=== PATIENT | female | born 1950 | race Caucasian/White ===

== ENCOUNTER 2017-04-17 21:15 | Emergency (ER) | payer MEDICARE ==
[~2017-04-17 21:15] MED LIST: ARNIGEL; ASPI325T PO; CORE3.12 PO; CRAN400C PO; CURCPOW XX; ENAL5 PO; FA-8800C2 PO; NITR.4 SL; PROT40TA PO; TRAM50TA PO; TYLE500T; VITA100017 PO; VITA100020 IM; WELL150T PO
[2017-04-17 21:17] VITALS: BP 181/107; PULSE 130; RESP 16; TEMP 99.2; O2SAT 97
--- NOTE | 2017-04-17 22:17 | RADRPT ---
EXAM DATE/TIME: 04/17/2017 21:47 [place] COMPARISON: No previous studies available for comparison. INDICATIONS : Foreign body. Patient states sewing needle on medial side of left thigh. MEDICAL HISTORY : None. SURGICAL HISTORY : None. ENCOUNTER: Initial ACUITY: 1 day PAIN SCORE: 3/10 LOCATION: Left femur. FINDINGS: Two view examination of the left femur demonstrates a sewing needle in the soft tissues of the medial left thigh. No bony abnormality. Osteoarthritis at the left knee joint with moderate size joint effu liang and probable loose bodies. CONCLUSION: 1. Sewing needle in the soft tissues of the medial left thigh. Britton Georges MD on April 17, 2017 at 22:14 Board Certified Radiologist. This report was verified electronically.
--- NOTE | 2017-04-17 23:27 | PD ---
HPI Chief Complaint: Skin Problem Time Seen by Provider: 23:15 Travel History International Travel<30 days: No Contact w/Intl Traveler<30days: No Traveled to known affect area: No History of Present Illness HPI 66-year-old white female presents to emergency department with complaints of a needle foreign body in her left thigh. She states that she had dropped sewing needles on her lap earlier today. She noticed an area of tenderness to the medial left thigh. She presents for evaluation. She denies any numbness or tingling. PFSH Past Medical History Arthritis: Yes (feet, knees, back ) Blood Disorders: No Depression: Yes Cancer: No Cardiovascular Problems: Yes Chest Pain: Yes Diabetes: No Diminished Hearing: No Endocrine: No Gastrointestinal Disorders: Yes GERD: Yes Genitourinary: Yes Hepatitis: No Hiatal Hernia: No Hypertension: Yes Immune Disorder: No Implanted Vascular Access Dvce: Yes Musculoskeletal: Yes (cervical fusion c2-c3, spinal stenosis) Neurologic: Yes (erbs palsy right arm) Psychiatric: Yes (anxiety) Reproductive: No Respiratory: Yes (asthma) Immunizations Current: No Renal Failure: Yes (chronic renal failure/atrophy of kidney since ) Thyroid Disease: No Menopausal: Yes : 2 Para: 2 Tubal Ligation: Yes Past Surgical History Abdominal Surgery: No AICD: No Appendectomy: Yes Cardiac Surgery: No Endocrine Surgery: No Eye Surgery: No Genitourinary Surgery: No Gynecologic Surgery: No Joint Replacement: No Pacemaker: No Thoracic Surgery: No Tonsillectomy: Yes Other Surgery: Yes (cervical spin, c section x2 appy at age 7) Social History Alcohol Use: No Tobacco Use: No Substance Use: No Allergies-Medications (Allergen,Severity, Reaction): Coded Allergies: diatrizoate meglumine (Unverified Allergy, Severe, SHOCK, 12/20/16) gadobenic acid (Unverified Allergy, Severe, SHOCK, 12/20/16) gadodiamide (Unverified Allergy, Severe, SHOCK, 12/20/16) gadoteridol (Unverified Allergy, Severe, SHOCK, 12/20/16) iodine (Unverified Allergy, Severe, ANAPHLATIC SHOCK, 12/20/16) iodixanol (Unverified Allergy, Severe, SHOCK, 12/20/16) iohexol (Unverified Allergy, Severe, SHOCK, 12/20/16) potassium iodide (Unverified Allergy, Severe, ANAPHLATIC SHOCK, 12/20/16) povidone-iodine (Unverified Allergy, Severe, ANAPHLATIC SHOCK, 12/20/16) sodium iodide (Unverified Allergy, Severe, ANAPHLATIC SHOCK, 12/20/16) sodium iodide (Unverified Allergy, Severe, ANAPHLATIC SHOCK, 12/20/16) Uncoded Allergies: Dairy (Adverse Reaction, Intermediate, Constipation, 11/12/11) Reported Meds & Prescriptions Reported Meds & Active Scripts Active Reported Aspirin 325 mg (Aspirin) 325 Mg Tab 325 Mg PO ONCE PRN Arnica Gel (Homeopathic Products) Gel Curcumin (Turmeric (Curcuma Longa) (Bulk) Pow 1 XX Fa-8 (Folic Acid) 800 Mcg Cap 800 Mcg PO DAILY Cranberry (Cranberry (Vaccinium Macrocarp) 400 Mg Cap 400 Mg PO Acetaminophen Extra Stren (Acetaminophen) 500 Mg Tab Vitamin B-12 (Cyanocobalamin) 1,000 Mcg Inj 1,000 Mcg IM Q30D Protonix (Pantoprazole Sodium) 40 Mg Tabdr 40 Mg PO DAILY Nitroglycerin 0.4 Mg Subl 0.4 Mg SL DIRECTED Wellbutrin Sr (Bupropion HCl) 150 Mg Tab 150 Mg PO DAILY Vitamin C (Ascorbic Acid) 1,000 Mg Tab 1,000 Mg PO DAILY Vasotec 5 Mg Tab (Enalapril Maleate) 5 Mg Tab 5 Mg PO BID Coreg (Carvedilol) 3.125 Mg Tab 3.125 Mg PO BID hold for systolic BP below 120 Tramadol Hcl (Tramadol HCl) 50 Mg Tab 50 Mg PO TIDPRN Review of Systems General / Constitutional: No: Fever Eyes: No: Visual changes HENT: No: Headaches Cardiovascular: No: Chest Pain or Discomfort Respiratory: No: Shortness of Breath Gastrointestinal: No: Abdominal Pain Genitourinary: No: Dysuria Musculoskeletal: No: Pain Skin: No Rash Neurologic: No: Weakness Psychiatric: No: Depression Endocrine: No: Polydipsia Hematologic/Lymphatic: No: Easy Bruising Physical Exam Narrative GENERAL: This is a well-nourished, well-developed patient, in no apparent distress. SKIN: No rashes, ecchymoses or lesions. Warm and dry. Patient has a foreign body on the left inner aspect of the thigh. This is at the level the skin HEAD: Atraumatic. Normocephalic. EYES: PERRL, EOMI, no discharge or injection. No scleral icterus. EARS: Clear NOSE: Nasal turbinates appear normal. THROAT: Mucosa pink and moist. Airway patent. NECK: Trachea midline. supple, moves head freely. LUNGS: Clear to auscultation. CV: Regular in rhythm. ABDOMEN: Soft nontender. EXT: No clubbing cyanosis or edema. Data Data Last Documented VS Vital Signs Date Time Temp Pulse Resp B/P (MAP) Pulse Ox O2 Delivery O2 Flow Rate FiO2 04/17/17 21:17 99.2 130 16 181/107 (131) 97 Room Air Orders Orders Femur (Ap & Lat/2vws) (04/17/17 ) Ed Discharge Order (04/17/17 23:23) MDM Medical Decision Making Medical Screen Exam Complete: Yes Emergency Medical Condition: Yes Medical Record Reviewed: Yes Interpretation(s) Last 24 hours Impressions Femur X-Ray 04/17/17 0000 Signed Impressions: Service Date/Time: Monday, April 17, 2017 21:47 - CONCLUSION: 1. Sewing needle in the soft tissues of the medial left thigh. Britton Georges MD Differential Diagnosis MDM: High Differential diagnoses: Fracture, sprain, strain, dislocation, contusion, neurovascular injury, foreign body Narrative Course Patient has a needle foreign body in her left thigh. This is been removed. The needle is intact. Procedures Procedure Narrative Needle for moderate removal left thigh: The skin is prepped with ChloraPrep. One percent lidocaine with epinephrine is used to anesthetize the skin. An 11 blade scalpel is used to make a small arlen in the skin and the foreign body ( needle) is removed in its entirety. No complications. Dressing applied Diagnosis Primary Impression: left thigh needle foreign body removed Patient Instructions: General Instructions Additional Instructions: Rest. Daily wound care with soap, water, Neosporin. Return to the ER. Problems. Follow-up with your doctor as needed Med/Other Pt SpecificInfo: Wound Care Disposition: 01 DISCHARGE HOME Condition: Stable Britton Portillo Apr 17, 2017 23:27
== END 2017-04-18 | disposition home or self-care (01) ==
LOC: NEPD 21:15
DX: S71.142A Puncture wound with foreign body, left thigh, initial encounter (principal); W45.8XXA Other foreign body or object entering through skin, initial encounter
CPT/HCPCS: 10120; 73552

== ENCOUNTER 2017-11-23 03:06 | Inpatient (IN) ==
--- NOTE | 2017-11-23 04:38 | CT ---
EXAM DATE: 11/23/2017 4:26 AM EDT AGE/SEX: 67 years / Female INDICATIONS: Trauma; fall. CLINICAL DATA: This is the patient's initial encounter. Patient reports that signs and symptoms have been present for 1 day and indicates a pain score of 4/10. MEDICAL/SURGICAL HISTORY: None. None. RADIATION DOSE: 56.35 CTDI (mGy) COMPARISON: [facility] [place]RAIN [place]/O [place], 02/09/2011. . TECHNIQUE: CT of the head without contrast. Using automated exposure control and adjustment of the mA and/or kV according to patient size, radiation dose was kept as low as reasonably achievable to ob tain optimal diagnostic quality images. DICOM format image data is available electronically for revi ew and comparison. FINDINGS: Cerebrum: There is a focal area of low attenuation in the right frontal white matter measuring about 11 mm in diameter likely a remote infarct. No mass or shift. No hydrocephalus. Posterior Fossa: The cerebellum and brainstem are intact. The 4th ventricle is midline. The cerebe llopontine angle is unremarkable. Extracranial: The visualized portion of the orbits is intact. Skull: The calvaria is intact. No evidence of skull fracture. CONCLUSION: 1. No acute findings. 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 Electronically signed by: Britton Georges MD 11/23/2017 4:37 AM EDT
[2017-11-23 04:49] LABS: Baso % (Auto) 0.2 % (0.0-2.0); Eos % (Auto) 0.3 % (0.0-4.0); Hematocrit 36.6 % (35.0-46.0); Hemoglobin 12.2 gm/dL (11.6-15.3); Lymph % (Auto) 11.8 % (9.0-44.0); Mean Corpuscular HGB Conc 33.4 % (32.0-36.0); Mean Corpuscular Hemoglobin 30.4 pg (27.0-34.0); Mean Corpuscular Volume 91.1 fL (80.0-100.0); Mean Platelet Volume 8.4 fL (7.0-11.0); Mono # (Auto) 0.9 th/mm3 (0.0-0.9); Mono % (Auto) 9.7 % (0.0-8.0); Neut # (Auto) 6.9 th/mm3 (1.8-7.7); Platelet Count 224 th/mm3 (150-450); Red Blood Count 4.02 mil/mm3 (4.00-5.30); Red Cell Distribution Width 15.5 % (11.6-17.2); White Blood Count 8.8 th/mm3 (4.0-11.0)
[2017-11-23 05:11] LABS: Alanine Aminotransferase 25 U/L (10-53); Albumin 3.2 g/dL (3.4-5.0); Alkaline Phosphatase 87 U/L (45-117); Anion Gap 9 meq/L (5-15); Aspartate Aminotransferase 28 U/L (15-37); Blood Urea Nitrogen 42 mg/dL (7-18); Calcium 8.7 mg/dL (8.5-10.1); Carbon Dioxide 22.5 meq/L (21.0-32.0); Chloride 110 meq/L (98-107); Glomerular Filtration Rate 37 mL/min (>89); Glucose,Random 83 mg/dL (74-106); Lactate Dehydrogenase 398 U/L (84-246); Sodium 141 meq/L (136-145); Total Protein 7.3 g/dL (6.4-8.2)
--- NOTE | 2017-11-23 05:20 | ED ---
HPI General Chief Complaint: Fall Stated Complaint: Fall Time Seen by Provider: 11/23/17 03:48 Source: patient and EMS Mode of arrival: EMS Limitations: no limitations History of Present Illness MD complaint: fall Onset (ago): day(s) (2) Fall from: standing Fall witnessed: no Place fall occurred: home Loss of consciousness: none Prolonged down time: no Symptoms prior to fall: none Location of injury: head Location of injury - extremities: Left: knee Associated symptoms (after fall): neck pain and weakness Related Data Home Medications Medication Instructions Recorded Confirmed acetaminophen 500 mg PO Q12H PRN 11/23/17 11/23/17 bupropion HCl 40 mg PO BID 11/23/17 11/23/17 carvedilol 6.25 mg PO BID 11/23/17 11/23/17 cholecalciferol (vitamin D3) 5,000 unit PO DAILY 11/23/17 11/23/17 [Vitamin D3] diclofenac sodium [Voltaren] 2 g TOPICAL QID 11/23/17 11/23/17 enalapril maleate 20 mg PO BID 11/23/17 11/23/17 folic acid 0.4 mg PO DAILY 11/23/17 11/23/17 furosemide 40 mg PO DAILY 11/23/17 11/23/17 glucosamine sulfate [Glucosamine] 500 mg PO BID 11/23/17 11/23/17 magnesium 70 mg PO DAILY 11/23/17 11/23/17 naproxen sodium [Aleve] 220 mg PO BID 11/23/17 11/23/17 nitroglycerin [Nitrostat] 0.4 mg SUBLINGUAL Q5-15M PRN 11/23/17 11/23/17 pantoprazole [Protonix] 40 mg PO DAILY 11/23/17 11/23/17 potassium chloride 10 meq PO DAILY 11/23/17 11/23/17 tramadol 50 mg PO Q6H 11/23/17 11/23/17 Allergies Allergy/AdvReac Type Severity Reaction Status Date / Time diatrizoate meglumine Allergy Severe SHOCK Unverified 12/20/16 14:30 gadobenic acid Allergy Severe SHOCK Unverified 12/20/16 14:30 gadodiamide Allergy Severe SHOCK Unverified 12/20/16 14:30 gadoteridol Allergy Severe SHOCK Unverified 12/20/16 14:30 iodine Allergy Severe ANAPHLATIC Unverified 12/20/16 14:30 SHOCK iodixanol Allergy Severe SHOCK Unverified 12/20/16 14:30 iohexol Allergy Severe SHOCK Unverified 12/20/16 14:30 potassium iodide Allergy Severe ANAPHLATIC Unverified 12/20/16 14:30 SHOCK povidone-iodine Allergy Severe ANAPHLATIC Unverified 12/20/16 14:30 SHOCK sodium iodide Allergy Severe ANAPHLATIC Unverified 12/20/16 14:30 SHOCK sodium iodide Allergy Severe ANAPHLATIC Unverified 12/20/16 14:30 SHOCK Dairy AdvReac Intermediate Constipatio Uncoded 11/12/11 20:26 n Review of Systems Except as stated in HPI: all other systems reviewed are negative Constitutional Reports system reviewed and no additional complaints, except as docu and Reports frequent falls Eyes Denies change in vision Cardiovascular Denies chest pain and Denies dyspnea Respiratory Denies cough and Denies dyspnea Gastrointestinal Denies abdominal pain, Denies diarrhea, Denies nausea and Denies vomiting Musculoskeletal Reports muscle weakness, Reports neck pain and Reports numbness Integumentary/Breasts Reports unusual bruising Neurologic Denies confusion, Denies dizziness and Denies syncope Psychiatric Reports anxiety (She is anxious regarding her current situation) PMFSH History History Provided By: Patient Medical History Medical History Brachial plexus injury, right (Acute) CRI (chronic renal insufficiency) (Acute) Cervical stenosis of spinal canal (Acute) Cervical vertebral fusion (Acute) HTN (hypertension) (Acute) Lumbar stenosis (Acute) Neuropathy (Acute) Right knee meniscal tear (Acute) Surgical History Surgical History H/O: (Acute) Hx of appendectomy (Acute) Social History Social History Substance History: No History of Abuse Second Hand Smoke Exposure: No Smoking Status: Former smoker How Often Do You Have a Drink Containing Alcohol: Never Recent Travel in [facility] within the Last 8 Weeks: No Recent Out of Country Travel within the Last 8 Weeks: No Exam Const General: cooperative Orientation: alert, awake and oriented x3 HENMT Head: normal to inspection, normocephalic and atraumatic Face and sinus: abrasion on the right and ecchymosis on the right Eyes General: appearance normal, both eyes and all related structures EOM: EOM intact bilaterally Neck Neck: normal visual inspection Chest Chest: normal inspection of the chest Resp Effort & Inspection: normal respiratory effort and able to speak in complete sentences Auscultation: clear to auscultation bilaterally Cardio Rate: regular rate Rhythm: regular rhythm GI Inspection: normal to inspection Palpation: soft Back/Spine/Pelvis Cervical Spine: pain with cervical ROM and cervical spinal tenderness Thoracic/Lumbar Spine: thoraco-lumbar ROM normal Skin General: ecchymosis (This patient has significant ecchymosis of both forearms and both lower extremities) Trauma: abrasion Neuro General: alert, awake, oriented x3, moves all extremities and CN's II-XI intact bilaterally Motor: other (Bilateral upper extremity weakness) Extrem General: full ROM and edema Right upper extremity: normal capillary refill Left upper extremity: normal capillary refill Right lower extremity: edema Left lower extremity: edema Psych Appearance: grossly normal Mental Status: mental status grossly normal Speech and Movement: speech and movement normal Mood: congruent mood Affect: anxious affect Attitude: cooperative Thought Process: normal Thought Content: normal Judgment: judgment good Course Consultations Consultation #1: Dr. Haider Time: 07:26 Initial Documented Vital Signs Pulse Rate 106 H 11/23/17 03:23 Respiratory Rate 16 11/23/17 03:23 Blood Pressure 159/69 H 11/23/17 03:23 Pulse Oximetry 97 11/23/17 03:23 Last Documented Vital Signs Pulse Rate 95 H 11/23/17 07:20 Respiratory Rate 18 11/23/17 07:20 Blood Pressure 225/102 H 11/23/17 07:20 Pulse Oximetry 97 11/23/17 07:20 Medical Decision Making [facility] Narrative Medical decision making narrative: This patient presents to us by EVAC status post several falls at home within the last couple of days. The patient reports a history of spinal stenosis. She has noticed increasing weakness of her upper extremities since the onset of the falls. She also has significant bruising of all 4 extremities secondary to the recent falls. She did have a blow to her head as the result of 1 of the falls. She denies loss of consciousness. CT of the head and MRI of the C-spine have been ordered. Routine labs have also been ordered. Regardless of the results of the studies, she will need to be admitted to the hospital. She is not safe for discharge to home secondary to her frequent falls. Differential Diagnosis Differential Diagnosis: Differential diagnosis of neck injury includes but is not limited to contusion, muscle strain, ligamentous strain, fracture, spinal cord injury Lab Data Lab results reviewed: Yes I reviewed the patient's lab results. Result diagrams: 11/23/17 04:20 11/23/17 04:20 Lab Results 11/23/17 11/23/17 11/23/17 Range/Units 04:20 04:20 04:20 WBC 8.8 (4.0-11.0) th/mm3 RBC 4.02 (4.00-5.30) mil/mm3 Hgb 12.2 (11.6-15.3) gm/dL Hct 36.6 (35.0-46.0) % MCV 91.1 (80.0-100.0) fL MCH 30.4 (27.0-34.0) pg MCHC 33.4 (32.0-36.0) % RDW 15.5 (11.6-17.2) % Plt Count 224 (150-450) th/mm3 MPV 8.4 (7.0-11.0) fL Neut % (Auto) 78.0 H (16.0-70.0) % Lymph % (Auto) 11.8 (9.0-44.0) % [place] % (Auto) 9.7 H (0.0-8.0) % Eos % (Auto) 0.3 (0.0-4.0) % Baso % (Auto) 0.2 (0.0-2.0) % Neut # (Auto) 6.9 (1.8-7.7) th/mm3 Lymph # (Auto) 1.0 (1.0-4.8) th/mm3 [place] # (Auto) 0.9 (0.0-0.9) th/mm3 Eos # (Auto) 0.0 (0.0-0.4) th/mm3 Baso # (Auto) 0.0 (0.0-0.2) th/mm3 WBC Differential . Differential Comment Auto diff final Sodium 141 (136-145) meq/L Potassium 4.3 (3.5-5.1) meq/L Chloride 110 H (98-107) meq/L Carbon Dioxide 22.5 (21.0-32.0) meq/L Anion Gap 9 (5-15) meq/L BUN 42 H (7-18) mg/dL Creatinine 1.40 H (0.50-1.00) mg/dL Estimated GFR 37 L (>89) mL/min Random Glucose 83 (74-106) mg/dL Calcium 8.7 (8.5-10.1) mg/dL Total Bilirubin 1.1 H (0.2-1.0) mg/dL AST 28 (15-37) U/L ALT 25 (10-53) U/L Alkaline Phosphatase 87 (45-117) U/L Lactate Dehydrogenase 398 H (84-246) U/L Total Creatine Kinase 76 (26-192) U/L Troponin I Less than 0.02 L (0.02-0.05) ng/mL B-Natriuretic Peptide 30 (0-100) pg/mL Total Protein 7.3 (6.4-8.2) g/dL Albumin 3.2 L (3.4-5.0) g/dL TSH 2.020 (0.358-3.740) uIU/mL Urine Color (Yellw/Straw) Urine Clarity (Clear) Urine pH (5.0-8.5) Ur Specific [place] (1.002-1.035) Urine Protein (Neg-Trace) mg/dL Urine Glucose (UA) (Negative) mg/dL Urine Ketones (Negative) mg/dL Urine Occult Blood (Negative) Urine Nitrate (Negative) Urine Bilirubin (Negative) Urine Urobilinogen (Less than 2) mg/dL Ur Leukocyte Esterase (Negative) Urine RBC (0-3) /hpf Urine WBC (0-5) /hpf Ur Squamous Epith Cells (0-5) /hpf Hyaline Casts (0-3) /lpf Urine Mucus (Occasional) /lpf Micro UA Comment Urine Culture Comments 11/23/17 Range/Units 05:30 WBC (4.0-11.0) th/mm3 RBC (4.00-5.30) mil/mm3 Hgb (11.6-15.3) gm/dL Hct (35.0-46.0) % MCV (80.0-100.0) fL MCH (27.0-34.0) pg MCHC (32.0-36.0) % RDW (11.6-17.2) % Plt Count (150-450) th/mm3 MPV (7.0-11.0) fL Neut % (Auto) (16.0-70.0) % Lymph % (Auto) (9.0-44.0) % [place] % (Auto) (0.0-8.0) % Eos % (Auto) (0.0-4.0) % Baso % (Auto) (0.0-2.0) % Neut # (Auto) (1.8-7.7) th/mm3 Lymph # (Auto) (1.0-4.8) th/mm3 [place] # (Auto) (0.0-0.9) th/mm3 Eos # (Auto) (0.0-0.4) th/mm3 Baso # (Auto) (0.0-0.2) th/mm3 WBC Differential Differential Comment Sodium (136-145) meq/L Potassium (3.5-5.1) meq/L Chloride (98-107) meq/L Carbon Dioxide (21.0-32.0) meq/L Anion Gap (5-15) meq/L BUN (7-18) mg/dL Creatinine (0.50-1.00) mg/dL Estimated GFR (>89) mL/min Random Glucose (74-106) mg/dL Calcium (8.5-10.1) mg/dL Total Bilirubin (0.2-1.0) mg/dL AST (15-37) U/L ALT (10-53) U/L Alkaline Phosphatase (45-117) U/L Lactate Dehydrogenase (84-246) U/L Total Creatine Kinase (26-192) U/L Troponin I (0.02-0.05) ng/mL B-Natriuretic Peptide (0-100) pg/mL Total Protein (6.4-8.2) g/dL Albumin (3.4-5.0) g/dL TSH (0.358-3.740) uIU/mL Urine Color Yellow (Yellw/Straw) Urine Clarity Hazy H (Clear) Urine pH 5.0 (5.0-8.5) Ur Specific [place] 1.021 (1.002-1.035) Urine Protein Negative (Neg-Trace) mg/dL Urine Glucose (UA) Negative (Negative) mg/dL Urine Ketones Trace H (Negative) mg/dL Urine Occult Blood Small H (Negative) Urine Nitrate Negative (Negative) Urine Bilirubin Negative (Negative) Urine Urobilinogen Less than 2 (Less than 2) mg/dL Ur Leukocyte Esterase Trace H (Negative) Urine RBC 1 (0-3) /hpf Urine WBC 10 H (0-5) /hpf Ur Squamous Epith Cells 9 (0-5) /hpf Hyaline Casts 23 (0-3) /lpf Urine Mucus Few H (Occasional) /lpf Micro UA Comment Culture indicated Urine Culture Comments Culture indicated Imaging Data Radiologist's impression: Head CT 11/23/17 04:06 CONCLUSION: 1. No acute findings. 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 ECG Data EKG Prior to Arrival: No Attestation: I personally reviewed and interpreted this ECG as follows: (EKG shows a sinus rhythm with a ventricular rate of 77. There are no STT wave changes.) Discharge Plan Discharge Disposition Patient Disposition: 30 Still Patient Discharge Details Diagnosis: Falls frequently Physicians Team ED Provider: Alejandra Covarrubias Primary Care Provider: Cody Nicole Rxs /Orders / Referrals /Forms Prescriptions: No Action furosemide 40 mg Tablet 40 mg PO DAILY RF: 0 potassium chloride 10 mEq Capsule, Extended Release 10 meq PO DAILY RF: 0 carvedilol 6.25 mg Tablet 6.25 mg PO BID RF: 0 enalapril maleate 20 mg Tablet 20 mg PO BID RF: 0 glucosamine sulfate [Glucosamine] 500 mg Tablet 500 mg PO BID RF: 0 folic acid 400 mcg Tablet 0.4 mg PO DAILY RF: 0 tramadol 50 mg Tablet 50 mg PO Q6H RF: 0 acetaminophen 500 mg Tablet 500 mg PO Q12H PRN (Reason: Pain) RF: 0 pantoprazole [Protonix] 40 mg Tablet,Delayed Release (Dr/Ec) 40 mg PO DAILY RF: 0 nitroglycerin [Nitrostat] 0.4 mg Tablet, Sublingual 0.4 mg SUBLINGUAL Q5-15M PRN (Reason: Chest Pain) RF: 0 magnesium 30 mg Tablet 70 mg PO DAILY RF: 0 diclofenac sodium [Voltaren] 1 % Gel 2 g TOPICAL QID RF: 0 cholecalciferol (vitamin D3) [Vitamin D3] 5,000 unit Tablet 5,000 unit PO DAILY RF: 0 naproxen sodium [Aleve] 220 mg Capsule 220 mg PO BID RF: 0 bupropion HCl 40 mg PO BID RF: 0 Discharge Interventions Interventions: Vital Signs Last Done: 11/23/17 07:20 Status ED Status: With Doctor
[2017-11-23 05:21] LABS: Creatine Kinase 76 U/L (26-192); Potassium 4.3 meq/L (3.5-5.1)
[2017-11-23 06:06] LABS: Bilirubin,Urine Negative (Negative); Clarity,Urine Hazy (Clear); Color,Urine Yellow (Yellw/Straw); Glucose,Urine (UA) Negative (Negative); Hyaline Casts,Urine 23 /lpf (0-3); Leukocyte Esterase,Urine Trace (Negative); Mucus,Urine Few /lpf (Occasional); Nitrite,Urine Negative (Negative); Specific Gravity,Urine 1.021 (1.002-1.035); Squamous Epithelial Cell,Urine 9 /hpf (0-5)
[2017-11-23] MEDS ORDERED: Sod Chloride 0.9% Inj 1,000 ML IV.CONT SCH (09:00)
[2017-11-23] MEDS: Carvedilol 6.25 MG Tablet PO SCH ×2 (09:45→20:12)
[2017-11-23] MEDS: Senna/Docusate Sodium 8.6/50 MG Tablet PO SCH ×2 (09:45→20:12)
[2017-11-23] MEDS: Acetaminophen 325 MG Tablet PO PRN ×2 (09:46→20:15)
[2017-11-23] MEDS: buPROPion 150 MG 12 HR Tablet PO SCH ×2 (10:01→20:12)
--- NOTE | 2017-11-23 10:01 | P.HP ---
<Gabi Landis W - Last Filed: 11/24/17 16:19> History of Present Illness Primary Care Physician: Cody Nicole DO Chief Complaint: Frequent falls History of Present Illness: This is a 67-year-old female patient with past medical history which includes chronic kidney disease stage III, hypertension, dilated cardiomyopathy 2D echocardiogram 02/24/2016 revealed ejection fraction of 65% normal chamber dimensions, normal left ventricular wall thickness, normal wall motion, mild tricuspid regurgitation, scoliosis of lumbar spine, fibromyalgia, cervical radiculitis, spinal stenosis and GERD. Patient presents to the emergency department today with complaints of frequent falls. Patient reports that she had a, "bad fall," back in July then had been doing well since then until 3 days ago. Patient reports for the past 3 days she has been having frequent falls and increasing weakness in her bilateral upper extremities. Patient does believe she hit her head during some of her falls but denies loss of consciousness. Patient reports that her arms feel heavy. Patient has not been able to squeeze the pump at the gas pump. Patient denies N/V, fevers, chills, shortness of breath or chest pain. PMH: chronic kidney disease stage III, hypertension, dilated cardiomyopathy 2D echocardiogram 02/24/2016 revealed ejection fraction of 65% normal chamber dimensions, normal left ventricular wall thickness, normal wall motion, mild tricuspid regurgitation, scoliosis of lumbar spine, fibromyalgia, cervical radiculitis, spinal stenosis GERD PSxH: Appendectomy Cervical vertebral fusion Right knee C section coloscopy EGD Lumbar paravertebral facelift tubal ligation FMH: colon cancer prostate cancer HTN renal disease Social history: lives alone denies ETOH use former cigarette smoker quit 20 plus years ago denies illicit drug use Review of Systems All other systems reviewed negative except as stated in HPI PMFSH - History History Provided By: Patient - Medical History Medical History: Medical History (Last Reviewed 11/23/17 @ 11:04 by Jose Elkins) Brachial plexus injury, right CRI (chronic renal insufficiency) Cervical stenosis of spinal canal Cervical vertebral fusion HTN (hypertension) Lumbar stenosis Neuropathy Right knee meniscal tear - Surgical History Surgical History: Surgical History (Last Reviewed 11/23/17 @ 11:04 by Jose Elkins) H/O: Hx of appendectomy - Tobacco History Second Hand Smoke Exposure: No Smoking Status: Former smoker - Alcohol History How Often Do You Have a Drink Containing Alcohol: Never - Substance Use History Substance History: No History of Abuse - Travel History Recent Travel in the [place] Within the Last 8 Weeks: No Recent Travel Out of the Country Within the Last 8 Weeks: No - Immunization History Tetanus Immunization: <5 Years Hx Influenza Vaccine This Season: No Medications and Allergies Allergies Allergy/AdvReac Type Severity Reaction Status Date / Time diatrizoate meglumine Allergy Severe SHOCK Verified 11/25/17 09:01 gadobenic acid Allergy Severe SHOCK Verified 11/25/17 09:01 gadodiamide Allergy Severe SHOCK Verified 11/25/17 09:01 gadoteridol Allergy Severe SHOCK Verified 11/25/17 09:01 iodine Allergy Severe ANAPHLATIC Verified 11/25/17 09:01 SHOCK iodixanol Allergy Severe SHOCK Verified 11/25/17 09:01 iohexol Allergy Severe SHOCK Verified 11/25/17 09:01 potassium iodide Allergy Severe ANAPHLATIC Verified 11/25/17 09:01 SHOCK povidone-iodine Allergy Severe ANAPHLATIC Verified 11/25/17 09:01 SHOCK sodium iodide Allergy Severe ANAPHLATIC Verified 11/25/17 09:01 SHOCK sodium iodide Allergy Severe ANAPHLATIC Verified 11/25/17 09:01 SHOCK Dairy AdvReac Intermediate Constipatio Uncoded 11/12/11 20:26 n Home Medications Medication Instructions Recorded Confirmed Type acetaminophen 500 mg PO Q12H PRN 11/23/17 11/23/17 History bupropion HCl 300 mg PO QAM 11/23/17 11/23/17 History carvedilol 6.25 mg PO BID 11/23/17 11/23/17 History cholecalciferol (vitamin D3) 5,000 unit PO DAILY 11/23/17 11/23/17 History [Vitamin D3] diclofenac sodium [Voltaren] 2 g TOPICAL QID 11/23/17 11/23/17 History enalapril maleate 20 mg PO BID 11/23/17 11/23/17 History folic acid 0.4 mg PO DAILY 11/23/17 11/23/17 History glucosamine sulfate [Glucosamine] 500 mg PO BID 11/23/17 11/23/17 History magnesium 70 mg PO DAILY 11/23/17 11/23/17 History naproxen sodium [Aleve] 220 mg PO BID 11/23/17 11/23/17 History nitroglycerin [Nitrostat] 0.4 mg SUBLINGUAL Q5-15M PRN 11/23/17 11/23/17 History pantoprazole [Protonix] 40 mg PO DAILY 11/23/17 11/23/17 History tramadol 50 mg PO Q6H 11/23/17 11/23/17 History Active Medications: Active Medications Acetaminophen (Tylenol) 650 mg PO Q4H PRN PRN Reason: Temp > 100.4, headache,pain1-5 Al Hydroxide/Mg Hydroxide (Milk Of Magnesia Liq) 30 ml PO Q12H PRN PRN Reason: Mild Constipation Carvedilol (Coreg) 6.25 mg PO BID [facility] Sodium Chloride (Ns Inj) 1,000 mls @ 75 mls/hr IV.CONT .[id number] [facility] Stop: 11/23/17 22:19 Non-Formulary Medication (Enalapril Maleate [Enalapril Maleate]) 20 mg PO BID [facility] Non-Formulary Medication (Bupropion Hcl [Bupropion Hcl]) 300 mg PO QAM [facility] Ondansetron HCl (Zofran Inj) 4 mg IV.PUSH Q6H PRN PRN Reason: NAUSEA OR VOMITING Pantoprazole Sodium (Protonix) 40 mg PO DAILY [facility] Senna/Docusate Sodium (Isabel-Colace) 1 tab PO BID [facility] Sodium Chloride (Ns Flush) 2 ml IV.FLUSH PRN PRN PRN Reason: FLUSH AFTER USING IV ACCESS Last Admin: 11/23/17 08:43 Dose: 2 ml Exam Vital signs: Vital Signs 11/23/17 03:23 11/23/17 04:43 11/23/17 07:20 Temperature Pulse Rate 106 H 95 H Respiratory Rate 16 18 Blood Pressure 159/69 H 225/102 H Pulse Oximetry 97 97 97 11/23/17 08:04 Temperature 98.1 F Pulse Rate 93 H Respiratory Rate 18 Blood Pressure 146/72 H Pulse Oximetry 98 Intake & Output 11/22/17 11/23/17 11/23/17 18:59 06:59 18:59 Weight 74.843 kg Narrative: GENERAL: This is a well-nourished, well-developed patient, in no apparent distress. SKIN: Large scattered ecchymotic areas bilateral upper and lower extremities. small abrasion right side of face CARDIOVASCULAR: Regular rate and rhythm RESPIRATORY: Clear to auscultation. Breath sounds equal bilaterally. GASTROINTESTINAL: Abdomen soft, non-tender, nondistended. Normal active bowel sounds MUSCULOSKELETAL: Extremities without clubbing, cyanosis. BUE 3/5, BLE 4/5. BLE 1+ pitting edema NEURO: Alert & Oriented x4 to person, place, time, situation. Moves all ext x4 Results - Labs CBC & Chem 7: 11/23/17 04:20 11/23/17 04:20 Labs: Laboratory Results - last 24 hr 11/23/17 11/23/17 11/23/17 04:20 04:20 04:20 WBC 8.8 RBC 4.02 Hgb 12.2 Hct 36.6 MCV 91.1 MCH 30.4 MCHC 33.4 RDW 15.5 Plt Count 224 MPV 8.4 Neut % (Auto) 78.0 H Lymph % (Auto) 11.8 Pender % (Auto) 9.7 H Eos % (Auto) 0.3 Baso % (Auto) 0.2 Neut # (Auto) 6.9 Lymph # (Auto) 1.0 Pender # (Auto) 0.9 Eos # (Auto) 0.0 Baso # (Auto) 0.0 WBC Differential . Differential Comment Auto diff final Sodium 141 Potassium 4.3 Chloride 110 H Carbon Dioxide 22.5 Anion Gap 9 BUN 42 H Creatinine 1.40 H Estimated GFR 37 L Random Glucose 83 Calcium 8.7 Total Bilirubin 1.1 H AST 28 ALT 25 Alkaline Phosphatase 87 Lactate Dehydrogenase 398 H Total Creatine Kinase 76 Troponin I Less than 0.02 L B-Natriuretic Peptide 30 Total Protein 7.3 Albumin 3.2 L TSH 2.020 Urine Color Urine Clarity Urine pH Ur [place] Urine Protein Urine Glucose (UA) Urine Ketones Urine Occult Blood Urine Nitrate Urine Bilirubin Urine Urobilinogen Ur Leukocyte Esterase Urine RBC Urine WBC Ur Squamous Epith Cells Hyaline Casts Urine Mucus Micro UA Comment Urine Culture Comments 11/23/17 05:30 WBC RBC Hgb Hct MCV MCH MCHC RDW Plt Count MPV Neut % (Auto) Lymph % (Auto) Pender % (Auto) Eos % (Auto) Baso % (Auto) Neut # (Auto) Lymph # (Auto) Pender # (Auto) Eos # (Auto) Baso # (Auto) WBC Differential Differential Comment Sodium Potassium Chloride Carbon Dioxide Anion Gap BUN Creatinine Estimated GFR Random Glucose Calcium Total Bilirubin AST ALT Alkaline Phosphatase Lactate Dehydrogenase Total Creatine Kinase Troponin I B-Natriuretic Peptide Total Protein Albumin TSH Urine Color Yellow Urine Clarity Hazy H Urine pH 5.0 Ur [place] 1.021 Urine Protein Negative Urine Glucose (UA) Negative Urine Ketones Trace H Urine Occult Blood Small H Urine Nitrate Negative Urine Bilirubin Negative Urine Urobilinogen Less than 2 Ur Leukocyte Esterase Trace H Urine RBC 1 Urine WBC 10 H Ur Squamous Epith Cells 9 Hyaline Casts 23 Urine Mucus Few H Micro UA Comment Culture indicated Urine Culture Comments Culture indicated - Imaging Impressions Head CT 11/23/17 04:06 CONCLUSION: 1. No acute findings. 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 Cervical Spine MRI 11/23/17 04:53 CONCLUSION: 1. Anterior fixation and bony fusion from C5 through C7. Due to a combination of grade 1 retrolisthesis of C3 on 4 and C4 on 5 in combination with regional disc bulges, there is severe spinal stenosis at both the C3-4 and C4-5 levels with marked cord compression. 2. Foraminal narrowing which may be severe enough to compromise the right C3 nerve root. Neural foramina are adequate at all remaining levels. Caprini VTE Risk Assessment Caprini VTE Risk Assessment: Moderate/High Risk (score >= 2) Caprini Risk Assessment Model: Point Value = 1 Point Value = 2 Point Value = 3 Point Value = 5 Age 41-60 Minor surgery BMI > 25 kg/m2 Swollen legs Varicose veins or History of unexplained or recurrent spontaneous Oral contraceptives or hormone replacement Sepsis (< 1 month) Serious lung disease, including pneumonia (< 1 month) Abnormal pulmonary function Acute myocardial infarction Congestive heart failure (< 1 month) History of inflammatory bowel disease Medical patient at bed rest Age 61-74 Arthroscopic surgery Major open surgery (> 45 min) Laparoscopic surgery (> 45 min) Malignancy Confined to bed (> 72 hours) Immobilizing plaster cast Central venous access Age >= 75 History of VTE Family history of VTE Factor V Leiden Prothrombin [id number] Lupus anticoagulant Anticardiolipin antibodies Elevated serum homocysteine Heparin-induced thrombocytopenia Other congenital or acquired thrombophilia Stroke (< 1 month) Elective arthroplasty Hip, pelvis, or leg fracture Acute spinal cord injury (< 1 month) Prophylaxis Regimen: Total Risk Factor Score Risk Level Prophylaxis Regimen 0-1 Low Early ambulation 2 Moderate Order ONE of the following: *Sequential Compression Device (SCD) *Heparin 5000 units SQ BID 3-4 Higher Order ONE of the following medications: *Heparin 5000 units SQ TID *Enoxaparin/Lovenox 40 mg SQ daily (WT < 150 kg, CrCl > 30 mL/min) *Enoxaparin/Lovenox 30 mg SQ daily (WT < 150 kg, CrCl > 10-29 mL/min) *Enoxaparin/Lovenox 30 mg SQ BID (WT < 150 kg, CrCl > 30 mL/min) AND/OR *Sequential Compression Device (SCD) 5 or more Highest Order ONE of the following medications: *Heparin 5000 units SQ TID (Preferred with Epidurals) *Enoxaparin/Lovenox 40 mg SQ daily (WT < 150 kg, CrCl > 30 mL/min) *Enoxaparin/Lovenox 30 mg SQ daily (WT < 150 kg, CrCl > 10-29 mL/min) *Enoxaparin/Lovenox 30 mg SQ BID (WT < 150 kg, CrCl > 30 mL/min) AND *Sequential Compression Device (SCD) Assessment and Plan - Plan Frequent falls Cervical cord compression Spinal stenosis check orthostatic vital signs continuous telemetry CT of the head reviewed and reveals no acute findings. 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 Anterior fixation and bony fusion from C5 through C7. Due to a combination of grade 1 retrolisthesis of C3 on 4 and C4 on 5 in combination with regional disc bulges, there is severe spinal stenosis at both the C3-4 and C4-5 levels with marked cord compression. 2. Foraminal narrowing which may be severe enough to compromise the right C3 nerve root. Neural foramina are adequate at all remaining levels. Patient reports she follows with Dr. Garcia as an outpatient and is requesting Dr. Garcia Consult placed to Neurosurgery, Dr. Haider discussed case with Dr. Garcia. Dr. Garcia is recommending urgent surgery likely tomorrow Chronic kidney disease stage III On admission BUN 42, creatinine 1.4, estimated GFR 37. Review of outpatient records patient has had chronic kidney disease stage III with BUN and averaging in the low 30s creatinine 1.1-1.4 and estimated GFR 34-59 Patient has 1+ BLE pitting edema Lasix 20 mg x 1 Recheck BMP in a.m. Hypertension Continue home enalapril 20 mg BID and home carvedilol 6.25 mg BID Dilated cardiomyopathy 2D echocardiogram 02/24/2016 revealed ejection fraction of 65% normal chamber dimensions, normal left ventricular wall thickness, normal wall motion, mild tricuspid regurgitation, Continue home enalapril 20 mg BID and home carvedilol 6.25 mg BID Stat Echocardiogram ordered as patient is planned to have surgery tomorrow GERD Continue home Protonix DVT prophylaxis with SCDs <Cory Haider - Last Filed: 11/25/17 12:42> History of Present Illness Primary Care Physician: Cody Nicole DO [facility] - Medical History Medical History: Medical History (Last Reviewed 11/23/17 @ 11:04 by Jose Elkins) Brachial plexus injury, right CRI (chronic renal insufficiency) Cervical stenosis of spinal canal Cervical vertebral fusion HTN (hypertension) Lumbar stenosis Neuropathy Right knee meniscal tear - Surgical History Surgical History: Surgical History (Last Reviewed 11/23/17 @ 11:04 by Jose Elkins) H/O: Hx of appendectomy Medications and Allergies Active Medications: Active Medications Acetaminophen (Tylenol) 650 mg PO Q4H PRN PRN Reason: Temp > 100.4, headache Last Admin: 11/25/17 09:03 Dose: 650 mg Al Hydroxide/Mg Hydroxide (Milk Of Coleman Sepulveda) 30 ml PO Q12H PRN PRN Reason: Mild Constipation Bisacodyl (Dulcolax Supp) 10 mg RECTAL DAILY PRN PRN Reason: SEVERE CONSITIPATION Bupropion HCl (Wellbutrin Sr) 150 mg PO BID [facility] Last Admin: 11/25/17 09:03 Dose: 150 mg Carvedilol (Coreg) 6.25 mg PO BID [facility] Last Admin: 11/25/17 09:03 Dose: 6.25 mg Chlorhexidine Gluconate (Chlorhexidine 2% Cloth) 3 pack [employer] [facility] Stop: 11/27/17 02:04 Clonidine HCl (Catapres) 0.2 mg PO Q6H PRN PRN Reason: sbp above 160 Last Admin: 11/24/17 17:48 Dose: 0.2 mg Enalapril Maleate (Vasotec) 20 mg PO BID [facility] Last Admin: 11/25/17 09:03 Dose: 20 mg Lactated Ringer's (Lr 1000 Ml Inj) 1,000 mls @ 30 mls/hr IV.SIG .Q24H [facility] Stop: 11/27/17 02:04 Last Admin: 11/25/17 03:59 Dose: Not Given Sodium Chloride (Ns Inj) 500 mls @ 30 mls/hr IV.SIG .Q10H [facility] Stop: 11/27/17 02:04 Acetaminophen (Ofirmev Inj) 1,000 mg in 100 mls @ 400 mls/hr IV.SIG Q8H [facility] Stop: 11/26/17 15:00 Cefazolin Sodium 1,000 mg/ (Sodium Chloride) 100 mls @ 100 mls/hr IV.SIG ONCE ONE Stop: 11/25/17 17:59 Lactulose (Lactulose Liq) 30 ml PO DAILY PRN PRN Reason: SEVERE CONSITIPATION Miscellaneous Information ([facility] [place] [facility] Information) 1 each OTHER UNSCH PRN PRN Reason: SEE LABEL COMMENTS Stop: 11/25/17 14:54 Ondansetron HCl (Zofran Inj) 4 mg IV.PUSH Q6H PRN PRN Reason: NAUSEA OR VOMITING Padimate O (Chapstick) 1 applicatio TOPICAL PRN PRN PRN Reason: CHAPPED LIPS Last Admin: 11/25/17 06:17 Dose: 1 applicatio Pantoprazole Sodium (Protonix) 40 mg PO DAILY [facility] Last Admin: 11/25/17 09:03 Dose: 40 mg Senna/Docusate Sodium (Isabel-Colace) 1 tab PO BID [facility] Last Admin: 11/25/17 09:04 Dose: 1 tab Sennosides (Senokot) 17.2 mg PO Q12H PRN PRN Reason: Moderate Constipation Sodium Chloride (Ns Flush) 2 ml IV.FLUSH PRN PRN PRN Reason: FLUSH AFTER USING IV ACCESS Last Admin: 11/23/17 08:43 Dose: 2 ml Throat Lozenges (Chloraseptic [place]) 2 spray OROPHARYNG Q2H PRN PRN Reason: SORE THROAT Last Admin: 11/25/17 06:17 Dose: 2 spray Tramadol HCl (Ultram) 50 mg PO Q6H PRN PRN Reason: Pain 1-10 Last Admin: 11/24/17 20:42 Dose: 50 mg Exam Vital signs: Vital Signs 11/24/17 14:55 11/24/17 15:00 11/24/17 15:15 Temperature 97.8 F Pulse Rate 81 86 80 Respiratory Rate 17 17 Blood Pressure 171/76 H 175/78 H 166/77 H Pulse Oximetry 94 L 97 96 11/24/17 15:30 11/24/17 15:45 11/24/17 16:00 Temperature Pulse Rate 71 70 74 Respiratory Rate 17 17 18 Blood Pressure 175/78 H 175/73 H 173/81 H Pulse Oximetry 96 97 97 11/24/17 16:05 11/24/17 16:51 11/24/17 18:37 Temperature 97.7 F 98.3 F Pulse Rate 81 80 87 Respiratory Rate 18 16 Blood Pressure 163/73 H 192/85 H 183/85 H Pulse Oximetry 96 11/24/17 19:26 11/24/17 20:00 11/24/17 22:19 Temperature 97.8 F Pulse Rate 73 Respiratory Rate 18 18 18 Blood Pressure 115/57 L Pulse Oximetry 100 11/25/17 00:42 11/25/17 01:57 11/25/17 04:00 Temperature 97.3 F L 98.3 F Pulse Rate 68 70 Respiratory Rate 18 18 18 Blood Pressure 118/54 L 145/71 H Pulse Oximetry 95 99 Intake & Output 11/24/17 11/25/17 11/25/17 18:59 06:59 18:59 Intake Total 1600 / 1600 1100 / 1100 50 / 50 Output Total 360 / 360 1175 / 1175 Balance 1240 / 1240 -75 / -75 50 / 50 Intake: IV 100 / 100 50 / 50 Ancef 2 GM Premix Inj 2 gm In 50 / 50 50 / 50 50 ml @ 100 mls/hr IV.SIG Q8H [facility] Rx#:[id number] Oral 1000 / 1000 Anesthesia Amount 1600 / 1600 Output: Urine 1100 / 1100 Estimated Blood Loss 60 / 60 Urine Amount (Catheter) 300 / 300 Indwelling Urethral Catheter 300 / 300 Wound Drainage 75 / 75 # 1 Anterior Neck 75 / 75 Other: Date of Last Bowel Movement 11/19/17 11/19/17 Results - Labs CBC & Chem 7: 11/25/17 06:03 11/25/17 06:03 Labs: Laboratory Results - last 24 hr 11/25/17 11/25/17 06:03 06:03 WBC 10.0 RBC 3.54 L Hgb 10.8 L Hct 32.1 L MCV 90.5 MCH 30.4 MCHC 33.5 RDW 15.2 Plt Count 160 MPV 8.6 Neut % (Auto) 91.4 H Lymph % (Auto) 5.7 L Pender % (Auto) 2.7 Eos % (Auto) 0.0 Baso % (Auto) 0.2 Neut # (Auto) 9.2 H Lymph # (Auto) 0.6 L Pender # (Auto) 0.3 Eos # (Auto) 0.0 Baso # (Auto) 0.0 WBC Differential . Differential Comment Auto diff final Sodium 138 Potassium 4.7 D Chloride 104 Carbon Dioxide 21.3 Anion Gap 13 BUN 25 H Creatinine 1.01 H Estimated GFR 55 L Random Glucose 116 H Calcium 8.7 - Imaging Impressions Cervical Spine X-Ray 11/24/17 00:00 CONCLUSION: Images document hardware related to ACDF at C3-C5. Caprini VTE Risk Assessment Caprini Risk Assessment Model: Point Value = 1 Point Value = 2 Point Value = 3 Point Value = 5 Age 41-60 Minor surgery BMI > 25 kg/m2 Swollen legs Varicose veins or History of unexplained or recurrent spontaneous Oral contraceptives or hormone replacement Sepsis (< 1 month) Serious lung disease, including pneumonia (< 1 month) Abnormal pulmonary function Acute myocardial infarction Congestive heart failure (< 1 month) History of inflammatory bowel disease Medical patient at bed rest Age 61-74 Arthroscopic surgery Major open surgery (> 45 min) Laparoscopic surgery (> 45 min) Malignancy Confined to bed (> 72 hours) Immobilizing plaster cast Central venous access Age >= 75 History of VTE Family history of VTE Factor V Leiden Prothrombin [id number] Lupus anticoagulant Anticardiolipin antibodies Elevated serum homocysteine Heparin-induced thrombocytopenia Other congenital or acquired thrombophilia Stroke (< 1 month) Elective arthroplasty Hip, pelvis, or leg fracture Acute spinal cord injury (< 1 month) Prophylaxis Regimen: Total Risk Factor Score Risk Level Prophylaxis Regimen 0-1 Low Early ambulation 2 Moderate Order ONE of the following: *Sequential Compression Device (SCD) *Heparin 5000 units SQ BID 3-4 Higher Order ONE of the following medications: *Heparin 5000 units SQ TID *Enoxaparin/Lovenox 40 mg SQ daily (WT < 150 kg, CrCl > 30 mL/min) *Enoxaparin/Lovenox 30 mg SQ daily (WT < 150 kg, CrCl > 10-29 mL/min) *Enoxaparin/Lovenox 30 mg SQ BID (WT < 150 kg, CrCl > 30 mL/min) AND/OR *Sequential Compression Device (SCD) 5 or more Highest Order ONE of the following medications: *Heparin 5000 units SQ TID (Preferred with Epidurals) *Enoxaparin/Lovenox 40 mg SQ daily (WT < 150 kg, CrCl > 30 mL/min) *Enoxaparin/Lovenox 30 mg SQ daily (WT < 150 kg, CrCl > 10-29 mL/min) *Enoxaparin/Lovenox 30 mg SQ BID (WT < 150 kg, CrCl > 30 mL/min) AND *Sequential Compression Device (SCD) Assessment and Plan - Attending Attestation Patient examined. Assessment and plan formulated with Gabi BRUNSON I agree with the above.
--- NOTE | 2017-11-23 13:21 | MR ---
EXAM DATE: 11/23/2017 12:28 PM EDT AGE/SEX: 67 years / Female INDICATIONS: Radiculopathy. CLINICAL DATA: This is the patient's initial encounter. Patient reports that signs and symptoms have been present for 1 day and indicates a pain score of 2/10. MEDICAL/SURGICAL HISTORY: Hypertension. Renal failure, chronic. Fusion, cervical. se ction. COMPARISON: [facility], MR LUMBAR SPINE W/O CONTRAST, 06/26/2017. . TECHNIQUE: Multiplanar, multisequence MRI examination of the cervical spine was performed without co ntrast. FINDINGS: Sagittal T1, T2 and inversion recovery images show anterior and bony fixation from C5 to C7. Spinal c anal is widely patent in this location. However, there is a grade 1 retrolisthesis of C3 on 4 and C4 on 5, the superior motion segment. In addition, diffuse disc bulges with some spurring encroaches on the spinal canal and results in severe spinal stenosis at both the C3-4 and C4-5 levels with elements of cord compression. Surprisingly, there is no regional cord edema, however. Posterior fossa is radi ographically normal. C2-C3: Small disc bulge which encroaches on the anterior epidural space and displaces the cord poste riorly with no obvious cord compression. Narrowing of the right neural foramina which appears severe enough to compromise the right C3 nerve root. Left neural foramina are adequate. C3-C4: Large disc bulge slightly more prominent rightward measuring 7.5 mm in depth. This results in severe spinal stenosis and marked cord compression, especially on the right. C4-C5: Again, 5 mm central disc bulge with associated listhesis results in severe spinal stenosis an d cord compression. Neural foramina are adequate C5-C6: Bony fusion and anterior fixation of the vertebral bodies. Spinal canal and neural foramina a re adequate C6-C7: Bony fusion and anterior fixation of the vertebral bodies. Spinal canal and neural foramina a re patent. C7-T1: No epidural impressions seen. CONCLUSION: 1. Anterior fixation and bony fusion from C5 through C7. Due to a combination of grade 1 retrolisthe sis of C3 on 4 and C4 on 5 in combination with regional disc bulges, there is severe spinal stenosis at both the C3-4 and C4-5 levels with marked cord compression. 2. Foraminal narrowing which may be severe enough to compromise the right C3 nerve root. Neural fora rahul are adequate at all remaining levels. Electronically signed by: Keith Escobar MD 11/23/2017 1:20 PM EDT
--- NOTE | 2017-11-23 16:29 | XR ---
EXAM DATE: 11/23/2017 3:40 PM EDT AGE/SEX: 67 years / Female INDICATIONS: Cardiomyopathy CLINICAL DATA: This is the patient's initial encounter. Patient reports that signs and symptoms have been present for 1 day and indicates a pain score of 0/10. MEDICAL/SURGICAL HISTORY: . Hypertension. Renal failure, chronic. . Fusion, cervical. Cesarea n section COMPARISON: [facility] [place], CHEST SINGLE AP, 11/11/2011. . FINDINGS: A single AP view of the chest demonstrates the lungs to be symmetrically aerated without evidence of mass, infiltrate or effusion. The cardiomediastinal contours are unremarkable. Osseous structures a re intact. Cervical spinal fusion plate. CONCLUSION: Negative examination. Electronically signed by: Pancho Foreman MD 11/23/2017 4:27 PM EDT
--- NOTE | 2017-11-23 16:54 | ECHRPT ---
Indication: CARDIOMYOPATHY CONCLUSIONS The left ventricular systolic function is low normal with an estimated ejection fraction in the rang e of 50- 55%. Normal left ventricular size. Wall thickness is normal. No regional wall motion abnormalities are present. There is trace tricuspid valve regurgitation. The estimated pulmonary arterial pressure is 31.7 mmHg. BP: / HR: Rhythm: Sinus MEASUREMENTS (Male / Female) Normal Values Technical Quality:Good 2D ECHO LV Diastolic Diameter PLAX 3.6 cm 4.2 - 5.9 / 3.9 - 5.3 cm LV Systolic Diameter PLAX 2.6 cm IVS Diastolic Thickness 1.0 cm 0.6 - 1.0 / 0.6 - 0.9 cm LVPW Diastolic Thickness 1.0 cm 0.6 - 1.0 / 0.6 - 0.9 cm LV Relative Wall Thickness 0.6 RV Internal Dim ED PLAX 2.5 cm LVOT Diameter 1.8 cm LA Systolic Diameter LX 2.2 cm 3.0 - 4.0 / 2.7 - 3.8 cm LV Ejection Fraction MOD 4C 58.5 % LV Ejection Fraction 4C AL 61.6 % M-MODE Aortic Root Diameter MM 2.2 cm LA Systolic Diameter MM 2.7 cm LA Ao Ratio MM 1.2 AV Cusp Separation MM 1.6 cm DOPPLER AV Peak Velocity 132.0 cm/s AV Peak Gradient 7.0 mmHg LVOT Peak Velocity 95.3 cm/s LVOT Peak Gradient 3.6 mmHg AV Area Cont Eq pk 1.8 cm MV Area PHT 5.4 cm Mitral E Point Velocity 68.1 cm/s Mitral A Point Velocity 105.0 cm/s Mitral E to A Ratio 0.6 LV E' Lateral Velocity 7.3 cm/s Mitral E to LV E' Lateral Ratio 9.3 LV E' Septal Velocity 4.3 cm/s Mitral E to LV E' Septal Ratio 15.9 TR Peak Velocity 233.0 cm/s TR Peak Gradient 21.7 mmHg Right Atrial Pressure 10.0 mmHg Pulmonary Artery Systolic Pressu 31.7 mmHg Right Ventricular Systolic Press 31.7 mmHg PV Peak Velocity 90.9 cm/s PV Peak Gradient 3.3 mmHg FINDINGS LEFT VENTRICLE The left ventricular systolic function is low normal with an estimated ejection fraction in the rang e of 50- 55%. Normal left ventricular size. Wall thickness is normal. No regional wall motion abnormalities are present. RIGHT VENTRICLE Normal right ventricular size and systolic function. LEFT ATRIUM The left atrial size is normal. RIGHT ATRIUM The right atrial size is normal. ATRIAL SEPTUM Normal atrial septal thickness without atrial level shunting by limited color doppler interrogation. AORTA The aortic root and proximal ascending aorta are normal in size on limited imaging. MITRAL VALVE Structurally normal mitral valve. No mitral valve stenosis or regurgitation. AORTIC VALVE Trileaflet aortic valve. No aortic valve stenosis or regurgitation. TRICUSPID VALVE Structurally normal tricuspid valve. There is trace tricuspid valve regurgitation. The estimated pulmonary arterial pressure is 31.7 mmHg. PULMONARY VALVE No pulmonary valve regurgitation or stenosis. VESSELS The inferior vena cava is normal in size. PERICARDIUM No pericardial effusion. Chance Pedro MD, FACC (Electronically Signed) Final Date:23 November 2017 16:54
--- NOTE | 2017-11-23 17:39 | P.CONNS ---
History of Present Illness Service: neurosurgery Consult date: 11/23/17 Requesting Physician: Cory Haider Reason for Consult: Cervical spinal stenosis with myelopathy Primary Care Provider: Cody Nicole DO Chief Complaint: Frequent falls History of Present Illness: This is a 67-year-old female patient with history of chronic kidney disease stage III, hypertension, dilated cardiomyopathy, mild tricuspid regurgitation, scoliosis of lumbar spine, fibromyalgia, cervical radiculitis, spinal stenosis and GERD. She was brought to the emergency department today with complaints of frequent falls. Patient reports that she had a, "bad fall," back in July then had been doing well since then until 3 days ago. Patient reports for the past 3 days she has been having frequent falls and increasing weakness in her bilateral upper extremities. Patient does believe she hit her head during some of her falls but denies loss of consciousness. Patient reports that her arms feel heavy. Her hands are very clumpsy and she reports she has not been able to squeeze the pump at the gas pump. Patient denies N/V, fevers, chills, shortness of breath or chest pain. MRI cervical spine show severe cervical stenosis with spinal cord compression. Neurosurgical consultation was requested PMH: chronic kidney disease stage III, hypertension, dilated cardiomyopathy 2D echocardiogram 02/24/2016 revealed ejection fraction of 65% normal chamber dimensions, normal left ventricular wall thickness, normal wall motion, mild tricuspid regurgitation, scoliosis of lumbar spine, fibromyalgia, cervical radiculitis, spinal stenosis GERD PSxH: Appendectomy Cervical vertebral fusion Right knee C section coloscopy EGD Lumbar paravertebral facelift tubal ligation FMH: colon cancer prostate cancer HTN renal disease Social history: lives alone denies ETOH use former cigarette smoker quit 20 plus years ago denies illicit drug use Caprini VTE Risk Assessment Caprini VTE Risk Assessment: Moderate/High Risk (score >= 2) Caprini Risk Assessment Model: Point Value = 1 Point Value = 2 Point Value = 3 Point Value = 5 Age 41-60 Minor surgery BMI > 25 kg/m2 Swollen legs Varicose veins or History of unexplained or recurrent spontaneous Oral contraceptives or hormone replacement Sepsis (< 1 month) Serious lung disease, including pneumonia (< 1 month) Abnormal pulmonary function Acute myocardial infarction Congestive heart failure (< 1 month) History of inflammatory bowel disease Medical patient at bed rest Age 61-74 Arthroscopic surgery Major open surgery (> 45 min) Laparoscopic surgery (> 45 min) Malignancy Confined to bed (> 72 hours) Immobilizing plaster cast Central venous access Age >= 75 History of VTE Family history of VTE Factor V Leiden Prothrombin [id number] Lupus anticoagulant Anticardiolipin antibodies Elevated serum homocysteine Heparin-induced thrombocytopenia Other congenital or acquired thrombophilia Stroke (< 1 month) Elective arthroplasty Hip, pelvis, or leg fracture Acute spinal cord injury (< 1 month) Prophylaxis Regimen: Total Risk Factor Score Risk Level Prophylaxis Regimen 0-1 Low Early ambulation 2 Moderate Order ONE of the following: *Sequential Compression Device (SCD) *Heparin 5000 units SQ BID 3-4 Higher Order ONE of the following medications: *Heparin 5000 units SQ TID *Enoxaparin/Lovenox 40 mg SQ daily (WT < 150 kg, CrCl > 30 mL/min) *Enoxaparin/Lovenox 30 mg SQ daily (WT < 150 kg, CrCl > 10-29 mL/min) *Enoxaparin/Lovenox 30 mg SQ BID (WT < 150 kg, CrCl > 30 mL/min) AND/OR *Sequential Compression Device (SCD) 5 or more Highest Order ONE of the following medications: *Heparin 5000 units SQ TID (Preferred with Epidurals) *Enoxaparin/Lovenox 40 mg SQ daily (WT < 150 kg, CrCl > 30 mL/min) *Enoxaparin/Lovenox 30 mg SQ daily (WT < 150 kg, CrCl > 10-29 mL/min) *Enoxaparin/Lovenox 30 mg SQ BID (WT < 150 kg, CrCl > 30 mL/min) AND *Sequential Compression Device (SCD) Review of Systems All other systems reviewed negative except as stated in HPI Constitutional: Denies anorexia, Denies body ache(s), Denies chills, Denies daytime sleepiness, Denies excessive sweating, Denies fatigue, Denies fever(s), Denies headache(s), Denies increased appetite, Denies lack of energy, Denies malaise, Denies night sweats, Denies weakness, Denies weight gain, Denies weight loss, Denies other Eyes: Reports discharge Ears, Nose, Mouth, and Throat: Denies abnormal hearing, Denies bleeding gums, Denies bad breath, Denies change in voice, Denies dental pain, Denies difficulty swallowing, Denies dizziness, Denies dry mouth, Denies ear discharge , Denies ear pain, Denies facial pain, Denies headache(s), Denies hearing loss, Denies hoarseness, Denies lip swelling, Denies nosebleed, Denies mouth lesions, Denies mouth pain, Denies nasal congestion, Denies nasal discharge, Denies nasal obstruction, Denies nasal trauma, Denies neck lump, Denies neck pain, Denies nose pain, Denies pain with swallowing, Denies poor balance, Denies post nasal drip, Denies ringing in the ears, Denies sinus pain, Denies sinus pressure , Denies sore throat, Denies throat swelling, Denies tongue swelling, Denies other Cardiovascular: Denies chest pain, Denies chest pain at rest, Denies chest pain with activity, Denies excessive sweating, Denies fainting, Denies fast heart rate, Denies foot swelling, Denies generalized swelling, Denies irregular heart rhythm, Denies leg pain with activity, Denies leg sores, Denies leg swelling, Denies lightheadedness, Denies radiating jaw, neck or arm pain, Denies rapid, pounding, or irregular heartbeat, Denies shortness of breath, Denies shortness of breath with activity, Denies shortness of breath when lying down, Denies shortness of breath causing sudden awakening, Denies slow heart rate, Denies other Respiratory: Denies change in phlegm color, Denies chest congestion, Denies cough, Denies coughing up blood, Denies excessive phlegm production, Denies pain on inspiration, Denies pain with cough, Denies shortness of breath, Denies shortness of breath with activity, Denies snoring, Denies stridor, Denies wheezing, Denies other Gastrointestinal: Denies abdominal pain, Denies belching, Denies black, tarry stools, Denies bloating, Denies bright, red blood in stools, Denies change in bowel habits, Denies constant urge to pass stool, Denies change in stools, Denies coffee ground vomit, Denies constipation, Denies cramping, Denies difficulty swallowing, Denies excessive passing of gas, Denies feeling full early, Denies heartburn, Denies incontinent of stools, Denies loose stools, Denies nausea, Denies pain with swallowing, Denies vomiting, Denies vomiting blood, Denies other Genitourinary: Denies abnormal periods, Denies abnormal vaginal bleeding, Denies absent period, Denies bleeding between periods, Denies blood in urine, Denies difficulty starting urination, Denies difficulty urinating, Denies dribbling after urination, Denies frequent nighttime urination, Denies genital itching, Denies genital lesions, Denies heavy periods, Denies hot flashes, Denies light periods, Denies nipple discharge, Denies painful intercourse, Denies painful periods, Denies painful urination, Denies pelvic pain, Denies prolapse symptoms, Denies sexual problems, Denies side pain, Denies urinary incontinence, Denies urinary urgency, Denies vaginal discharge, Denies vaginal dryness, Denies vaginal odor, Denies vaginal itching, Denies other Musculoskeletal: Reports abnormal walking, Reports body aches, Reports decreased muscle mass, Reports joint pain, Reports muscle cramps, Reports muscle weakness, Reports neck pain, Reports numbness, Reports stiffness, Reports tingling, Denies back pain, Denies deformity, Denies joint swelling, Denies limited joint movement, Denies loss of height, Denies radiating pain into limb, Denies other Skin/Breast: Denies acne, Denies bleeding lesions, Denies boil, Denies breast swelling, Denies breast skin changes, Denies breast pain, Denies breast lump, Denies change in breast shape, Denies change in hair, Denies change in skin color, Denies changing lesions, Denies dry skin, Denies excessive hair growth, Denies hair loss, Denies itching, Denies lesions, Denies nail changes, Denies new lesions, Denies nipple discharge, Denies non-healing lesions, Denies redness , Denies sensitivity to light, Denies rash, Denies skin pain, Denies skin ulcer , Denies sores, Denies stretch bey, Denies unusual bruising, Denies wounds, Denies yellowing of the skin, Denies other Neurologic: Denies abnormal hearing, Denies abnormal movements, Denies abnormal speech, Denies abnormal walking, Denies behavioral changes, Denies burning sensations, Denies confusion, Denies dizziness, Denies fainting, Denies frequent falls, Denies headache(s), Denies lack of coordination, Denies localized weakness, Denies loss of vision, Denies memory loss, Denies numbness, Denies other visual disturbances, Denies radiating pain, Denies restless legs, Denies convulsions, Denies seizure-like activity, Denies sensory deficit, Denies tingling, Denies tingling/numbness/burning sensations, Denies tremor(s), Denies unsteadiness, Denies weakness, Denies other Psychiatric: Denies abnormal sleep pattern, Denies anxiety, Denies behavioral changes, Denies change in appetite, Denies change in sex drive, Denies confusion , Denies depression, Denies difficulty concentrating, Denies hearing things others do not hear, Denies hopelessness, Denies irritability, Denies lack of enjoyment, Denies memory loss, Denies mood swings, Denies panic attacks, Denies paranoia, Denies seeing things others do not see, Denies sensing things others do not sense, Denies tactile hallucinations, Denies thoughts of hurting/killing others, Denies thoughts of hurting/killing yourself, Denies other Endocrine: Denies cold intolerance, Denies excessive sweating, Denies flushing, Denies heat intolerance, Denies increased hunger, Denies increased thirst, Denies increased urination, Denies rapid, pounding, or irregular heartbeat, Denies other Hematologic/Lymphatic: Denies easy bleeding, Denies easy bruising, Denies enlarged lymph nodes, Denies other Allergic/Immunologic: Denies GI upset with certain foods, Denies hives, Denies itchy eyes, Denies lip swelling, Denies seasonal runny nose, Denies throat swelling, Denies tongue swelling, Denies wheezing, Denies other PMFSH - History History Provided By: Patient - Medical History Medical History: Medical History (Last Reviewed 11/23/17 @ 17:38 by Pradeep Garcia MD) Brachial plexus injury, right CRI (chronic renal insufficiency) Cervical stenosis of spinal canal Cervical vertebral fusion HTN (hypertension) Lumbar stenosis Neuropathy Right knee meniscal tear - Surgical History Surgical History: Surgical History (Last Reviewed 11/23/17 @ 17:38 by Pradeep Garcia MD) H/O: Hx of appendectomy - Tobacco History Second Hand Smoke Exposure: No Smoking Status: Former smoker - Alcohol History How Often Do You Have a Drink Containing Alcohol: Never - Substance Use History Substance History: No History of Abuse - Travel History Recent Travel in the [place] Within the Last 8 Weeks: No Recent Travel Out of the Country Within the Last 8 Weeks: No - Immunization History Tetanus Immunization: <5 Years Hx Influenza Vaccine This Season: No Medications and Allergies Active Medications: Active Medications Acetaminophen (Tylenol) 650 mg PO Q4H PRN PRN Reason: Temp > 100.4, headache,pain1-5 Last Admin: 11/23/17 09:46 Dose: 650 mg Al Hydroxide/Mg Hydroxide (Milk Of Magnana luisa Liq) 30 ml PO Q12H PRN PRN Reason: Mild Constipation Bupropion HCl (Wellbutrin Sr) 150 mg PO BID [facility] Last Admin: 11/23/17 10:01 Dose: 150 mg Carvedilol (Coreg) 6.25 mg PO BID [facility] Last Admin: 11/23/17 09:45 Dose: 6.25 mg Enalapril Maleate (Vasotec) 20 mg PO BID [facility] Last Admin: 11/23/17 09:45 Dose: 20 mg Sodium Chloride (Ns Inj) 1,000 mls @ 75 mls/hr IV.CONT .[id number] [facility] Stop: 11/23/17 22:19 Last Admin: 11/23/17 09:52 Dose: 75 mls/hr Ondansetron HCl (Zofran Inj) 4 mg IV.PUSH Q6H PRN PRN Reason: NAUSEA OR VOMITING Pantoprazole Sodium (Protonix) 40 mg PO DAILY [facility] Last Admin: 11/23/17 09:49 Dose: 40 mg Senna/Docusate Sodium (Isabel-Colace) 1 tab PO BID [facility] Last Admin: 11/23/17 09:45 Dose: 1 tab Sodium Chloride (Ns Flush) 2 ml IV.FLUSH PRN PRN PRN Reason: FLUSH AFTER USING IV ACCESS Last Admin: 11/23/17 08:43 Dose: 2 ml Allergies Allergy/AdvReac Type Severity Reaction Status Date / Time diatrizoate meglumine Allergy Severe SHOCK Verified 11/25/17 09:01 gadobenic acid Allergy Severe SHOCK Verified 11/25/17 09:01 gadodiamide Allergy Severe SHOCK Verified 11/25/17 09:01 gadoteridol Allergy Severe SHOCK Verified 11/25/17 09:01 iodine Allergy Severe ANAPHLATIC Verified 11/25/17 09:01 SHOCK iodixanol Allergy Severe SHOCK Verified 11/25/17 09:01 iohexol Allergy Severe SHOCK Verified 11/25/17 09:01 potassium iodide Allergy Severe ANAPHLATIC Verified 11/25/17 09:01 SHOCK povidone-iodine Allergy Severe ANAPHLATIC Verified 11/25/17 09:01 SHOCK sodium iodide Allergy Severe ANAPHLATIC Verified 11/25/17 09:01 SHOCK sodium iodide Allergy Severe ANAPHLATIC Verified 11/25/17 09:01 SHOCK Dairy AdvReac Intermediate Constipatio Uncoded 11/12/11 20:26 n Home Medications Medication Instructions Recorded Confirmed Type acetaminophen 500 mg PO Q12H PRN 11/23/17 11/23/17 History bupropion HCl 300 mg PO QAM 11/23/17 11/23/17 History carvedilol 6.25 mg PO BID 11/23/17 11/23/17 History cholecalciferol (vitamin D3) 5,000 unit PO DAILY 11/23/17 11/23/17 History [Vitamin D3] diclofenac sodium [Voltaren] 2 g TOPICAL QID 11/23/17 11/23/17 History enalapril maleate 20 mg PO BID 11/23/17 11/23/17 History folic acid 0.4 mg PO DAILY 11/23/17 11/23/17 History glucosamine sulfate [Glucosamine] 500 mg PO BID 11/23/17 11/23/17 History magnesium 70 mg PO DAILY 11/23/17 11/23/17 History naproxen sodium [Aleve] 220 mg PO BID 11/23/17 11/23/17 History nitroglycerin [Nitrostat] 0.4 mg SUBLINGUAL Q5-15M PRN 11/23/17 11/23/17 History pantoprazole [Protonix] 40 mg PO DAILY 11/23/17 11/23/17 History tramadol 50 mg PO Q6H 11/23/17 11/23/17 History Exam Vital signs: Vital Signs 11/23/17 03:23 11/23/17 04:43 11/23/17 07:20 Temperature Pulse Rate 106 H 95 H Respiratory Rate 16 18 Blood Pressure 159/69 H 225/102 H Pulse Oximetry 97 97 97 11/23/17 08:04 11/23/17 10:58 11/23/17 11:48 Temperature 98.1 F 97.4 F L Pulse Rate 93 H 94 H Respiratory Rate 18 18 18 Blood Pressure 146/72 H 169/82 H Pulse Oximetry 98 100 11/23/17 15:28 Temperature 98.7 F Pulse Rate 103 H Respiratory Rate 17 Blood Pressure 133/69 Pulse Oximetry 99 Intake & Output 11/22/17 11/23/17 11/23/17 18:59 06:59 18:59 Weight 74.843 kg Narrative: The patient is alert, awake. Comfortable, in no acute distress. Speech is fluent. Cranial nerve examination: pupils to be equal, round and reactive to light. Extra-ocular movements are intact. Facial motor and sensory function are normal and symmetrical. Gross hearing appears intact. Sternocleidomastoid and trapezius muscles are symmetrical. Other cranial nerves are intact. Neck is soft and supple with a good range of motion without pain. Muscle strength is 3/5 in all groups of both upper extremities, with inability nto move her fingers of each hand or close her talent scout. The patient has very truly have no useful function in either hand. In her lower extremities the strength is 4/5 in all major muscle groups. Sensory examination is decreased to light touch and pin prick in both the upper and lower extremities. Deep tendon reflexes are 23+ in both upper and lower extremities. There is Babinsky and positive Hohhman reflex Cerebellar examination is unremarkable, without deficits. Lungs are clear Heart regular rhythm is regular rate Skin warm and dry BLE 1+ pitting edema. Results - Laboratory Findings CBC and BMP: 11/25/17 06:03 11/25/17 06:03 Abnormal lab findings: Abnormal Labs 11/23/17 11/23/17 11/23/17 04:20 04:20 05:30 Neut % (Auto) 78.0 H Candler % (Auto) 9.7 H Chloride 110 H BUN 42 H Creatinine 1.40 H Estimated GFR 37 L Total Bilirubin 1.1 H Lactate Dehydrogenase 398 H Troponin I Less than 0.02 L Albumin 3.2 L Urine Clarity Hazy H Urine Ketones Trace H Urine Occult Blood Small H Ur Leukocyte Esterase Trace H Urine WBC 10 H Urine Mucus Few H Assessment and Plan - Plan I have reviewed with Ms Blanc her clinical and radiological findings including. Head CT 11/23/17 04:06 CONCLUSION: 1. No acute findings. 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 Cervical Spine MRI 11/23/17 04:53 CONCLUSION: 1. Anterior fixation and bony fusion from C5 through C7. Due to a combination of grade 1 retrolisthesis of C3 on 4 and C4 on 5 in combination with regional disc bulges, there is severe spinal stenosis at both the C3-4 and C4-5 levels with marked cord compression. 2. Foraminal narrowing which may be severe enough to compromise the right C3 nerve root. Neural foramina are adequate at all remaining levels. Chest X-Ray 11/23/17 14:39 CONCLUSION: Negative examination. 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 Her prognosis is guarded. I have discussed with her and with dr Haider the alternative methods of treatment Her radiological findings correlate with his clinical symptoms. Unfortunately he failed to improve with conservative treatment. She has developed weakness and multiple falls. She understands that surgery should be a last resort I discussed with her the alternative of continuing nonsurgical treatment with physical therapy versus consideration to a surgical decompression with a C3-4, 4 -5 anterior cervical discectomy and arthrodesis. Using her radiologic studies, anatomical model(s) we have discussed the details of an anterior cervical discectomy and arthrodesis including the [id number] procedure, its indications , alternatives, risks, and potential complications. Risks and potential complications include, but are not limited to, infection, blood loss, CSF leak, partial or complete loss of sight in one or both eyes, paresis, paralysis, permanent pain, hoarseness or difficulty swallowing, loss of bowel or bladder function, complications from anesthesia, blood clot, stroke, myocardial infarction, or even . neuro checks in a serial fashion. Chronic kidney disease stage III On admission BUN 42, creatinine 1.4, estimated GFR 37. Review of outpatient records patient has had chronic kidney disease stage III with BUN and averaging in the low 30s creatinine 1.1-1.4 and estimated GFR 34-59 Patient has 1+ BLE pitting edema Lasix 20 mg x 1 Recheck BMP in a.m. Hypertension Continue home enalapril 20 mg BID and home carvedilol 6.25 mg BID Dilated cardiomyopathy 2D echocardiogram 02/24/2016 revealed ejection fraction of 65% normal chamber dimensions, normal left ventricular wall thickness, normal wall motion, mild tricuspid regurgitation, Continue home enalapril 20 mg BID and home carvedilol 6.25 mg BID Stat Echocardiogram ordered as patient is planned to have surgery tomorrow Pulmonary: aggressive pulmonary toilette, nasotracheal suction, and breathing treatments with nebulizers. Daily PT and OT Renal: Continue to monitor closely urine output, BUN and creatinine Endocrine: Continue to Monitor serial Acu checks and SSI as needed in detail ID continue to monitor for signs of infection Continue Protonix for stress ulcer prophylaxis Continue Walter hose and SCD's for DVT prophylaxis Discussed with dr Haider
[2017-11-23] MEDS ORDERED: Chlorhexidine 4% Topical 120 APPLIC/120 ML Bottle TOPICAL ONE (18:05)
--- NOTE | 2017-11-23 19:18 | ECG ---
Date Performed: 11/23/2017 Time Performed: 05:22:58 PTAGE: 67 years EKG: Sinus rhythm NORMAL ECG PREVIOUS TRACING : 03/13/2014 14.22 Since the previous tracing, no significant change noted DOCTOR: Sean Castaneda Interpretating Date/Time 11/23/2017 19:17:09
[2017-11-24] MEDS ORDERED: Metoprolol Tartrate 25 MG Tablet PO SCH (02:15)
[2017-11-24] MEDS ORDERED: Chlorhexidine Gluconate 2% 1 Pack (2 Cloths) TOPICAL SCH (02:15)
[2017-11-24] MEDS ORDERED: Sodium Chlor 0.9% Inj 500 ML IV.SIG SCH (03:00)
[2017-11-24] MEDS ORDERED: Chlorhexidine 4% Topical 120 APPLIC/120 ML Bottle TOPICAL ONE (08:00)
[2017-11-24] MEDS: Carvedilol 6.25 MG Tablet PO SCH ×2 (09:32→20:43)
[2017-11-24] MEDS: buPROPion 150 MG 12 HR Tablet PO SCH ×2 (09:32→20:42)
[2017-11-24] MEDS: Senna/Docusate Sodium 8.6/50 MG Tablet PO SCH ×2 (09:32→20:43)
[2017-11-24 10:02] LABS: Baso % (Auto) 0.2 % (0.0-2.0); Eos % (Auto) 0.6 % (0.0-4.0); Hematocrit 34.2 % (35.0-46.0); Hemoglobin 11.3 gm/dL (11.6-15.3); Lymph # (Auto) 0.9 th/mm3 (1.0-4.8); Mean Corpuscular HGB Conc 33.1 % (32.0-36.0); Mean Corpuscular Hemoglobin 30.1 pg (27.0-34.0); Mean Corpuscular Volume 90.9 fL (80.0-100.0); Mean Platelet Volume 8.4 fL (7.0-11.0); Mono # (Auto) 0.6 th/mm3 (0.0-0.9); Mono % (Auto) 8.3 % (0.0-8.0); Neut # (Auto) 5.3 th/mm3 (1.8-7.7); Neut % (Auto) 77.9 % (16.0-70.0); Platelet Count 178 th/mm3 (150-450); Red Blood Count 3.77 mil/mm3 (4.00-5.30); Red Cell Distribution Width 15.9 % (11.6-17.2); White Blood Count 6.8 th/mm3 (4.0-11.0)
[2017-11-24 10:09] LABS: Activated Partial Thrombo Time 22.1 sec (24.3-30.1); INR 1.1 Ratio; Prothrombin Time 10.7 sec (9.8-11.6)
[2017-11-24 10:30] LABS: Calcium 8.6 mg/dL (8.5-10.1); Carbon Dioxide 24.9 meq/L (21.0-32.0); Potassium 3.9 meq/L (3.5-5.1)
[2017-11-24] MEDS ORDERED: Phenylephrine/NS 1000 MCG/10ML Syringe IV.PUSH ONE (12:00)
[2017-11-24] MEDS ORDERED: Lidocaine PF 1% Inj 5 ML Syringe INFILTRATN ONE (12:00)
[2017-11-24] MEDS ORDERED: Glycopyrrolate Inj 1 MG/5 ML Syringe IV.PUSH ONE (12:00)
[2017-11-24] MEDS: ceFAZolin 2 GM Premix Inj 2 GM/50 ML PIGGYBACK IV.SIG ONE ×2 (12:25→19:26)
[2017-11-24] MEDS ORDERED: Bisacodyl 10 MG Supp RECTAL PRN (12:26)
[2017-11-24] MEDS ORDERED: Propofol Inj 500 MG/50 ML Vial ONE ×2 (12:39→12:47)
[2017-11-24] MEDS: Gelatin Size 100 Topical Foam ONE ×2 (13:26→19:26)
[2017-11-24] MEDS: Thrombin Topical Soln 5,000 UNIT Vial TOPICAL ONE ×2 (13:27→17:27)
[2017-11-24] MEDS ORDERED: fentaNYL Citrate Inj 100 MCG/2 ML Ampul ONE ×2 (13:51→15:12)
--- NOTE | 2017-11-24 15:09 | P.OP ---
- Preoperative Diagnosis (1) Cervical myelopathy Date of procedure: 11/24/17 Procedure: C3-4, C4-5 anterior cervical discectomy, interbody arthodhesis using PEEK cage filled with autologous bone graft, Simplicity plate and screws Anesthesia: NAZ Surgeon: Pradeep Garcia MD Dean For Student Affairs: Marly Figueredo Pathology: none sent Operation and Findings: INDICATIONS FOR THE PROCEDURE ms Blanc is a 67 year old female who presented a with severe cervical myelopathy and quadriparesis and repeated falls. She had a prior cervical fusion at C5-6, C6-7. She developed severe stenosis at C3-4, and C4-5 with severe compression of the spinal cord. She failed nonoperative treatment. A surgical decompression and arthrodhesis were indicated. The [id number] details of the procedure, indications, alternatives, risks and potential complications were fully discussed with the patient. She fully understood. All The questions were answered. No guarantees were given. The patient voiced requesting the procedure and provided informed consents. The patient was offered the alternative of delaying the procedure and continuing with nonsurgical management. DETAILS OF THE SURGICAL PROCEDURE After the induction of general anesthesia, endotracheal intubation was performed. A Joel catheter, bilateral ROOSEVELT hose, and sequential compression devices were placed and kept throughout the procedure. The patient was positioned supine on a Jeremy table with the head over a gel doughnut. All pressure points were carefully padded with egg crate mattress. The eyes were tapped shut after ointment was applied by the anesthesiologist to prevent corneal abrasion. A Alton hugger was placed over the exposed lower body to maintain control of the core body temperature. The electrophysiological team placed the needles and electrodes in their proper location and baseline SSEP's and motor evoked potentials were registered. The anterior cervical region was prepped and draped in the usual sterile fashion. A localizing x-ray was performed with a C-arm. The surgical procedure was performed in several steps as follow: SURGICAL APPROACH A skin incision was made along the high/middle cervical crease with a #10 blade. The dissection was carried out through the platysma exposing the sternocleidomastoid muscle. The cervical spine was approached following the fascial layers of the neck just medial to the anterior border of the sternocleidomastoid and carotid sheath by a combination of sharp and dull dissection. The omohyoid muscle was identified and carefully dissected laterally and the deep cervical fascia was carefully opened. The longus colli muscles were retracted to each side of the midline. A marker was placed at the disc space C4-5 and a cross-table lateral x-ray performed with a C-arm. SURGICAL DECOMPRESSION In order to decompress the anterior surface of the spinal cord it was necessary to preform a microsurgical resection of the disk. At this point in the procedure the operating microscope was draped in the usual sterile fashion and brought to the field. The rest of the surgical procedure was performed using microdissection technique with the exception of the closure. Under the operative microscopic, an anterior osteophytic spur at C3-4 and C4-5 were carefully removed using the leksell, and a self-retaining retractor was placed underneath the longus colli muscle. The annulus at C3-4 and C4-5 were incised with a #15 blade and microdiscectomy was then carefully carried out using angled curets and pituitary forceps. The patient had severe posterior disk extrusion at both levels which were producing mass affect on the anterior surface of the dural sac and spinal cord compression. This was carefully drilled with a TPS drill and resected with a think foot plate 2mm kerrison under high magnification. The posterior longitudinal ligament was then elevated with an angled curet and incised with a 15 bladed knife. A careful ressection of the posterior longitudinal ligament at C3-4 and C4-5 was carried out using a thin footplate 2 mm Kerrison. The decompression was then carried out laterally, and a bilateral foraminotomy was performed with a 2mm thin foot Kerrison. Then the vertebral bodies above and below the disk space were undercut using a 2 mm thin foot Kerrison. The epidural space was the systematically assessed with a nerve hook in search for disk fragments. An excellent decompression was achieved in both, the dural sac and bilateral exiting nerve roots. The incision was then irrigated with a large amount of antibiotic solution INTERBODY ARTHRODHESIS In order to avoid collapse of the disk space which would result in bilateral foraminal stenosis, and to increase the chances of a successful fusion, it was necessary to place an interbody cage filled with autologous bone. At this point of the procedure, the superior and inferior endplates were then evenly decorticated with a TPS drill. The use of a drill in combination with a curette allowed me to systematically remove the cartilaginous endplates, exposing healthy bone for the interbody arthrodesis. fourteen millimeters distraction pins were then placed at the vertebral bodies adjacent to the disk space, and gentle distraction was applied. The size of the interbody cage was then assessed using different size spacers, and a rasp was used to ensure no residual cartilage. A PEEK cage of the appropriate size was selected, and the interbody arthrodesis was then preformed by carefully impacting a PEEK cage filled with autologous bone graft to the disc spaces C3-4 and C4-5. An excellent position of the cages was achieved. This was was confirmed anatomically by feelling the space posterior to the implant and distance to the anterior surface of the dural sac. Radiological confirmation of the position was performed with a cross lateral xray performed with the C-arm. INTERNAL INSTRUMENTAL FIXATION Once that the interbody device was in an appropriate position, it was necessary to stabilize the spine with anterior instrumentation. Anterior instrumentation has demonstrated to increase the rate of fusion, accelerate the patient's recovery, and decrease the rate of failed interbody grafts. At this point of the procedure, the distance between the vertebral bodies was carefully measures, and a Simplicity plate was brought to the field and presented in front of the C3, C4 and C5 vertebral bodies. Life Teacher holes were then drilled using the TPS drill, and the plate was then secured to the spine using self-drilling, self-tapping screws. Initially, the inferior right screw was inserted, followed by placement of the contra lateral upper screw. The remaining screws were sequentially placed in a contra-lateral fashion. A proper purchase was achieved with all screws and the position of the cage, plate and screws, and alignment of the spine was assessed anatomically by direct visualization, and radiologically by performing a cross lateral xray of the cervical spine with the C-arm. CLOSURE The incision was irrigated with several liters of antibiotic solution. Hemostasis was achieved with a bipolar. The screws were locked to prevent backing out. A 7 mm Jeremy-Fernández drain was left in the prevertebral space and externalized through a separate stab incision. The incision was then closed in layers. 3-0 Vicryl with interrupted sutures was used to close the platysma and subcutaneous tissue. The skin was closed with 4-0 running subcuticular Vicryl and Dermabond was applied to the skin. The drain was secured with a 3-0 nylon. At the end of the procedure the sponge, needle and instrument counts were all correct. The estimated blood loss was less than 70-75 cc. No blood transfusion was given. No intraoperative complications occurred. The patient received prophylactic antibiotics. The patient was then extubated and transferred to the recovery room in stable condition.
[2017-11-24] MEDS ORDERED: Morphine Inj 4 MG/ML Vial ONE (15:12)
--- NOTE | 2017-11-24 15:24 | ECG ---
Date Performed: 11/24/2017 Time Performed: 04:43:14 PTAGE: 67 years EKG: Sinus rhythm BASELINE ARTIFACT NORMAL ECG PREVIOUS TRACING :11/23/2017 @05.22 When compared to the prior EKG,likely no significant change DOCTOR: Lisa Shaw Interpretating Date/Time 11/24/2017 15:24:21
[2017-11-24] MEDS ORDERED: *morphine SULFATE 4 MG/ML PERIprocedure ONLY ONE (15:54)
[2017-11-24] MEDS ORDERED: Dimethicone/Oxybenzone-Padimate Lip Balm 4.25 GM Tube TOPICAL ONE (16:00)
[2017-11-24] MEDS ORDERED: Dimethicone/Oxybenzone-Padimate Lip Balm 4.25 GM Tube TOPICAL PRN (17:00)
[2017-11-24] MEDS: Acetaminophen 325 MG Tablet PO PRN (17:02)
--- NOTE | 2017-11-24 17:02 | XR ---
EXAM DATE: 11/24/2017 4:38 PM EDT AGE/SEX: 67 years / Female INDICATIONS: C3-4, C4-5 Anterior cervical disc fusion. CLINICAL DATA: This is the patient's initial encounter. Patient reports that signs and symptoms have been present for 1 day and indicates a pain score of Nonresponsive. MEDICAL/SURGICAL HISTORY: Hypertension. Gastroesophageal reflux disease. Cholelithiasis. Chr onic kidney disease stage 3. Previous C5-6, C6-7 ACDF. Appendectomy. section. COMPARISON: No prior exams available for comparison. FINDINGS: 3 spot fluoroscopic images obtained in the operating room during a procedure demonstrates placement o f an anterior plate and screws in the cervical spine at the C3-C5 levels. Material has also been plac ed in the intervening disc spaces. A surgical drain is present and plate is also present more inferio rly and visualized only on the AP projection. CONCLUSION: Images document hardware related to ACDF at C3-C5. Electronically signed by: Darrion Sarkar MD 11/24/2017 5:01 PM EDT
--- NOTE | 2017-11-24 17:17 | P.PNIM ---
Subjective Interval history: Patient S/P C3-4, C4-5 anterior cervical discectomy, interbody arthodhesis using PEEK cage filled with autologous bone graft, Simplicity plate and screws with Dr. Garcia 11/24/17 Physical Exam Vital signs: Vital Signs 11/23/17 20:00 11/23/17 23:24 11/24/17 03:13 Temperature 98.4 F 98.2 F Pulse Rate 104 H 96 H 72 Respiratory Rate 16 16 Blood Pressure 127/83 123/82 Pulse Oximetry 96 96 11/24/17 04:00 11/24/17 08:00 11/24/17 14:55 Temperature 98.7 F 98.6 F 97.8 F Pulse Rate 88 85 81 Respiratory Rate 17 16 Blood Pressure 123/73 160/72 H 171/76 H Pulse Oximetry 96 99 94 L 11/24/17 16:05 11/24/17 16:51 Temperature 97.7 F 98.3 F Pulse Rate 81 80 Respiratory Rate 18 16 Blood Pressure 163/73 H 192/85 H Pulse Oximetry 96 Intake & Output 11/23/17 11/24/17 11/24/17 18:59 06:59 18:59 Intake Total 1080 / 1080 1000 / 1000 1600 / 1600 Output Total 360 / 360 Balance 1080 / 1080 1000 / 1000 1240 / 1240 Weight 74.84 kg Intake: IV 1000 / 1000 NS Inj 1,000 ML @ 75 mls/hr IV. 1000 / 1000 CONT .[id number] [facility] Rx#:[id number] Oral 1080 / 1080 Anesthesia Amount 1600 / 1600 Output: Estimated Blood Loss 60 / 60 Urine Amount (Catheter) 300 / 300 Indwelling Urethral Catheter 300 / 300 Other: # Voids 3 4 # Bowel Movements 0 Weight On Admission 74.84 kg Narrative: GENERAL: This is a well-nourished, well-developed patient, in no apparent distress. SKIN: Large scattered ecchymotic areas bilateral upper and lower extremities. small abrasion right side of face neck brace in place and SPENSER drain in place CARDIOVASCULAR: Regular rate and rhythm RESPIRATORY: Clear to auscultation. Breath sounds equal bilaterally. GASTROINTESTINAL: Abdomen soft, non-tender, nondistended. Normal active bowel sounds MUSCULOSKELETAL: Extremities without clubbing, cyanosis. BUE 3/5, BLE 4/5. BLE 1+ pitting edema NEURO: Alert & Oriented x4 to person, place, time, situation. Moves all ext x4 - Urinary Catheter Management Indwelling Urethral Catheter Cath placed during this visit: yes Reason for continuing: Other continuation reason Insertion date: 11/24/17 Insertion time: 12:10 Results - Labs CBC & Chem 7: 11/25/17 06:03 11/25/17 06:03 Laboratory Results - last 24 hr 11/24/17 11/24/17 11/24/17 09:06 09:06 09:06 WBC 6.8 RBC 3.77 L Hgb 11.3 L Hct 34.2 L MCV 90.9 MCH 30.1 MCHC 33.1 RDW 15.9 Plt Count 178 MPV 8.4 Neut % (Auto) 77.9 H Lymph % (Auto) 13.0 [place] % (Auto) 8.3 H Eos % (Auto) 0.6 Baso % (Auto) 0.2 Neut # (Auto) 5.3 Lymph # (Auto) 0.9 L [place] # (Auto) 0.6 Eos # (Auto) 0.0 Baso # (Auto) 0.0 WBC Differential . Differential Comment Auto diff final PT 10.7 INR 1.1 APTT 22.1 L Sodium 142 Potassium 3.9 Chloride 109 H Carbon Dioxide 24.9 Anion Gap 8 BUN 34 H Creatinine 1.08 H Estimated GFR 50 L Random Glucose 87 Calcium 8.6 Magnesium 2.0 Microbiology 11/23/17 05:30 Clean Catch Urine Urine Culture - Preliminary No growth in 24 hours - Imaging Impressions Cervical Spine X-Ray 11/24/17 00:00 CONCLUSION: Images document hardware related to ACDF at C3-C5. Assessment and Plan - Plan Frequent falls Cervical cord compression Spinal stenosis check orthostatic vital signs continuous telemetry CT of the head reviewed and reveals no acute findings. 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 Anterior fixation and bony fusion from C5 through C7. Due to a combination of grade 1 retrolisthesis of C3 on 4 and C4 on 5 in combination with regional disc bulges, there is severe spinal stenosis at both the C3-4 and C4-5 levels with marked cord compression. 2. Foraminal narrowing which may be severe enough to compromise the right C3 nerve root. Neural foramina are adequate at all remaining levels. Patient reports she follows with Dr. Garcia as an outpatient and is requesting Dr. Garcia Consult placed to Neurosurgery, Dr. Haider discussed case with Dr. Garcia. Dr. Garcia is recommending urgent surgery S/P C3-4, C4-5 anterior cervical discectomy, interbody arthodhesis using PEEK cage filled with autologous bone graft, Simplicity plate and screws with Dr. Garcia 11/24/17 Tramadol as needed for pain Chronic kidney disease stage III On admission BUN 42, creatinine 1.4, estimated GFR 37. Review of outpatient records patient has had chronic kidney disease stage III with BUN and averaging in the low 30s creatinine 1.1-1.4 and estimated GFR 34-59 Patient has 1+ BLE pitting edema Lasix 20 mg x 1 11/23 Hypertension Continue home enalapril 20 mg BID and home carvedilol 6.25 mg BID add clonidine PRN Dilated cardiomyopathy 2D echocardiogram 02/24/2016 revealed ejection fraction of 65% normal chamber dimensions, normal left ventricular wall thickness, normal wall motion, mild tricuspid regurgitation, Continue home enalapril 20 mg BID and home carvedilol 6.25 mg BID Repeat Echocardiogram: The left ventricular systolic function is low normal with an estimated ejection fraction in the range of 50- 55%. Normal left ventricular size. Wall thickness is normal. No regional wall motion abnormalities are present. There is trace tricuspid valve regurgitation. The estimated pulmonary arterial pressure is 31.7 mmHg. GERD Continue home Protonix DVT prophylaxis with SCDs - Attending Attestation Patient examined. Assessment and plan formulated with Gabi BRUNSON I agree with the above.
[2017-11-24] MEDS: ceFAZolin 2 GM Premix Inj 2 GM/50 ML PIGGYBACK IV.SIG SCH (20:42)
[2017-11-25] MEDS: ceFAZolin 2 GM Premix Inj 2 GM/50 ML PIGGYBACK IV.SIG SCH ×2 (04:01→13:13)
[2017-11-25] MEDS ORDERED: Phenol 1.4% 180 ML Spray Bottle OROPHARYNG PRN (05:51)
[2017-11-25 06:29] LABS: Baso % (Auto) 0.2 % (0.0-2.0); Hematocrit 32.1 % (35.0-46.0); Hemoglobin 10.8 gm/dL (11.6-15.3); Lymph # (Auto) 0.6 th/mm3 (1.0-4.8); Lymph % (Auto) 5.7 % (9.0-44.0); Mean Corpuscular HGB Conc 33.5 % (32.0-36.0); Mean Corpuscular Hemoglobin 30.4 pg (27.0-34.0); Mean Corpuscular Volume 90.5 fL (80.0-100.0); Mean Platelet Volume 8.6 fL (7.0-11.0); Mono # (Auto) 0.3 th/mm3 (0.0-0.9); Mono % (Auto) 2.7 % (0.0-8.0); Neut # (Auto) 9.2 th/mm3 (1.8-7.7); Neut % (Auto) 91.4 % (16.0-70.0); Platelet Count 160 th/mm3 (150-450); Red Blood Count 3.54 mil/mm3 (4.00-5.30); Red Cell Distribution Width 15.2 % (11.6-17.2)
[2017-11-25 07:04] LABS: Calcium 8.7 mg/dL (8.5-10.1)
[2017-11-25 07:06] LABS: Carbon Dioxide 21.3 meq/L (21.0-32.0)
[2017-11-25 07:13] LABS: Potassium 4.7 meq/L (3.5-5.1)
[2017-11-25] MEDS: buPROPion 150 MG 12 HR Tablet PO SCH ×2 (09:03→20:17)
[2017-11-25] MEDS: Acetaminophen 325 MG Tablet PO PRN (09:03)
[2017-11-25] MEDS: Carvedilol 6.25 MG Tablet PO SCH ×2 (09:03→20:17)
[2017-11-25] MEDS: Senna/Docusate Sodium 8.6/50 MG Tablet PO SCH ×2 (09:04→20:16)
--- NOTE | 2017-11-25 12:11 | P.PNNS ---
Subjective Interval history: Pt awake and alert. Sitting up in chair. She complains of stable numbness and tingling in her hands and understands this is usually the last thing to get better and can take a year and sometimes not completely resolve. She has weakness in her extremities and agrees she could use rehab to get stronger. She denies any chest pain or sob. She has some sore throat but able to swallow. Physical Exam Vital signs: Vital Signs 11/24/17 14:55 11/24/17 15:00 11/24/17 15:15 Temperature 97.8 F Pulse Rate 81 86 80 Respiratory Rate 17 17 Blood Pressure 171/76 H 175/78 H 166/77 H Pulse Oximetry 94 L 97 96 11/24/17 15:30 11/24/17 15:45 11/24/17 16:00 Temperature Pulse Rate 71 70 74 Respiratory Rate 17 17 18 Blood Pressure 175/78 H 175/73 H 173/81 H Pulse Oximetry 96 97 97 11/24/17 16:05 11/24/17 16:51 11/24/17 18:37 Temperature 97.7 F 98.3 F Pulse Rate 81 80 87 Respiratory Rate 18 16 Blood Pressure 163/73 H 192/85 H 183/85 H Pulse Oximetry 96 11/24/17 19:26 11/24/17 20:00 11/24/17 22:19 Temperature 97.8 F Pulse Rate 73 Respiratory Rate 18 18 18 Blood Pressure 115/57 L Pulse Oximetry 100 11/25/17 00:42 11/25/17 01:57 11/25/17 04:00 Temperature 97.3 F L 98.3 F Pulse Rate 68 70 Respiratory Rate 18 18 18 Blood Pressure 118/54 L 145/71 H Pulse Oximetry 95 99 Intake & Output 11/24/17 11/25/17 11/25/17 18:59 06:59 18:59 Intake Total 1600 / 1600 1100 / 1100 50 / 50 Output Total 360 / 360 1175 / 1175 Balance 1240 / 1240 -75 / -75 50 / 50 Intake: IV 100 / 100 50 / 50 Ancef 2 GM Premix Inj 2 gm In 50 / 50 50 / 50 50 ml @ 100 mls/hr IV.SIG Q8H [facility] Rx#:[id number] Oral 1000 / 1000 Anesthesia Amount 1600 / 1600 Output: Urine 1100 / 1100 Estimated Blood Loss 60 / 60 Urine Amount (Catheter) 300 / 300 Indwelling Urethral Catheter 300 / 300 Wound Drainage 75 / 75 # 1 Anterior Neck 75 / 75 Other: Date of Last Bowel Movement 11/19/17 11/19/17 - Constitutional no acute distress, average body habitus - Routine HEENT Exam Head: Present: normocephalic, atraumatic Eye: Present: PERRL. Absent: conjunctival icterus - Routine Respiratory Exam Present: CTA bilaterally. Absent: respiratory distress, rhonchi, wheezes - Routine Cardiovascular Exam Present: RRR, S1, S2. Absent: murmur - Routine Abdominal Exam Present: soft, normoactive bowel sounds. Absent: tenderness, distended - Routine Skin Exam Present: wounds (Anterior cervical incision dry SPENSER drain in place.) - Routine Neurological Exam Present: alert, oriented X3, motor deficit (generalized weakness in extremities. ) - Routine Psychiatric Exam Present: anxious (mildly anxious.) - Urinary Catheter Management Indwelling Urethral Catheter Cath placed during this visit: yes Reason for continuing: Other continuation reason Insertion date: 11/24/17 Insertion time: 12:10 Assessment and Plan - Assessment (1) Falls frequently Code(s): R29.6 - Repeated falls Status: Acute (2) Cervical myelopathy Code(s): G95.9 - Disease of spinal cord, unspecified Status: Acute - Plan Head CT 11/23/17 04:06 CONCLUSION: 1. No acute findings. 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 Cervical Spine MRI 11/23/17 04:53 CONCLUSION: 1. Anterior fixation and bony fusion from C5 through C7. Due to a combination of grade 1 retrolisthesis of C3 on 4 and C4 on 5 in combination with regional disc bulges, there is severe spinal stenosis at both the C3-4 and C4-5 levels with marked cord compression. 2. Foraminal narrowing which may be severe enough to compromise the right C3 nerve root. Neural foramina are adequate at all remaining levels. Pt underwent a C3/C4 and C4/C5 anterior cervical fusion with plate placement on 11/24/17. Pt will benefit from rehab placement given her cervical myelopathy. Continue with PT/OT currently. Chest X-Ray 11/23/17 14:39 CONCLUSION: Negative examination. Chronic kidney disease stage III On admission BUN 42, creatinine 1.4, estimated GFR 37. Review of outpatient records patient has had chronic kidney disease stage III with BUN and averaging in the low 30s creatinine 1.1-1.4 and estimated GFR 34-59 Patient has 1+ BLE pitting edema Lasix 20 mg x 1 Recheck BMP in a.m. Hypertension Continue home enalapril 20 mg BID and home carvedilol 6.25 mg BID Dilated cardiomyopathy 2D echocardiogram 02/24/2016 revealed ejection fraction of 65% normal chamber dimensions, normal left ventricular wall thickness, normal wall motion, mild tricuspid regurgitation, Continue home enalapril 20 mg BID and home carvedilol 6.25 mg BID Pulmonary: aggressive pulmonary toilette, nasotracheal suction, and breathing treatments with nebulizers. Daily PT and OT Renal: Continue to monitor closely urine output, BUN and creatinine Endocrine: Continue to Monitor serial Acu checks and SSI as needed in detail ID continue to monitor for signs of infection Continue Protonix for stress ulcer prophylaxis Continue Walter jones and SCD's for DVT prophylaxis Pt will benefit from rehab placement given her cervical myelopathy. Continue with PT/OT currently.
--- NOTE | 2017-11-25 13:02 | P.PNIM ---
Subjective Interval history: Pt worried that final dose of ancef did NOT infuse and actually spilled on the floor. Pt is concerned her multiple bruises will get infected. Pt concerned that decadron is raising her BP readings. Pt c/o pain at neck and arms but is hesitant to use narcotics. Physical Exam Vital signs: Vital Signs 11/25/17 00:42 11/25/17 01:57 11/25/17 04:00 Temperature 97.3 F L 98.3 F Pulse Rate 68 70 Respiratory Rate 18 Blood Pressure 118/54 L 145/71 H Pulse Oximetry 95 99 Narrative: GENERAL: This is a well-nourished, well-developed patient, in no apparent distress. SKIN: Large scattered ecchymotic areas bilateral upper and lower extremities. small abrasion right side of face neck brace in place and SPENSER drain in place CARDIOVASCULAR: Regular rate and rhythm RESPIRATORY: Clear to auscultation. Breath sounds equal bilaterally. GASTROINTESTINAL: Abdomen soft, non-tender, nondistended. Normal active bowel sounds MUSCULOSKELETAL: Extremities without clubbing, cyanosis. BUE 3/5, BLE 4/5. BLE 1+ pitting edema NEURO: Alert & Oriented x4 to person, place, time, situation. Moves all ext x4 - Urinary Catheter Management Indwelling Urethral Catheter Cath placed during this visit: yes Reason for continuing: Other continuation reason Insertion date: 11/24/17 Insertion time: 12:10 Results - Labs CBC & Chem 7: 11/25/17 06:03 11/25/17 06:03 Laboratory Results - last 24 hr 11/25/17 11/25/17 06:03 06:03 WBC 10.0 RBC 3.54 L Hgb 10.8 L Hct 32.1 L MCV 90.5 MCH 30.4 MCHC 33.5 RDW 15.2 Plt Count 160 MPV 8.6 Neut % (Auto) 91.4 H Lymph % (Auto) 5.7 L [place] % (Auto) 2.7 Eos % (Auto) 0.0 Baso % (Auto) 0.2 Neut # (Auto) 9.2 H Lymph # (Auto) 0.6 L [place] # (Auto) 0.3 Eos # (Auto) 0.0 Baso # (Auto) 0.0 WBC Differential . Differential Comment Auto diff final Sodium 138 Potassium 4.7 D Chloride 104 Carbon Dioxide 21.3 Anion Gap 13 BUN 25 H Creatinine 1.01 H Estimated GFR 55 L Random Glucose 116 H Calcium 8.7 Microbiology 11/23/17 05:30 Clean Catch Urine Urine Culture - Final 10-50,000 cfu/mL mixed gram positive dagoberto (probable contaminants) - Imaging Impressions ITS Impressions Head CT 11/23/17 04:06 CONCLUSION: 1. No acute findings. 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 Cervical Spine MRI 11/23/17 04:53 CONCLUSION: 1. Anterior fixation and bony fusion from C5 through C7. Due to a combination of grade 1 retrolisthesis of C3 on 4 and C4 on 5 in combination with regional disc bulges, there is severe spinal stenosis at both the C3-4 and C4-5 levels with marked cord compression. 2. Foraminal narrowing which may be severe enough to compromise the right C3 nerve root. Neural foramina are adequate at all remaining levels. Chest X-Ray 11/23/17 14:39 CONCLUSION: Negative examination. Cervical Spine X-Ray 11/24/17 00:00 CONCLUSION: Images document hardware related to ACDF at C3-C5. Assessment and Plan - Plan Frequent falls Cervical cord compression Spinal stenosis Cervical myelopathy CT of the head (11/23) no acute findings. Small remote infarct in the right frontal white matter MRI cervical spine reveals (11/23) spinal stenosis and cord compression 1. Anterior fixation and bony fusion from C5 through C7. Due to a combination of grade 1 retrolisthesis of C3 on 4 and C4 on 5 in combination with regional disc bulges there is severe spinal stenosis at both the C3-4 and C4-5 levels with marked cord compression. 2. Foraminal narrowing which may be severe enough to compromise the right C3 nerve root. Neural foramina are adequate at all remaining levels. - Pt taken to the OR for multilevel cervical discectomy with fusion by Dr. Garcia (11/24) - C3-4, C4-5 anterior cervical discectomy - interbody arthrodeses using PEEK cage filled with autologous bone graft, Simplicity plate and screws - tramadol prn - IV tylenol q8h x 24 hours - SPENSER drain mgmt per NSX - Case d/w neurosurgery service (11/25) - one additional dose of ancef 1g this evening - PT - Pt will need SNF placement at the end of current hospitalization - SCDs for DVT prophylaxis - supportive care Chronic kidney disease stage III On admission BUN 42, creatinine 1.4, estimated GFR 37. Review of outpatient records patient has had chronic kidney disease stage III with BUN and averaging in the low 30s creatinine 1.1-1.4 and estimated GFR 34-59 Patient has 1+ BLE pitting edema Lasix 20 mg x 1 11/23 - BUN/Cr 25/1.01 (11/25) Hypertension - enalapril 20 mg BID - carvedilol 6.25 mg BID - clonidine PRN Dilated cardiomyopathy 2D echocardiogram 02/24/2016 revealed ejection fraction of 65% normal chamber dimensions, normal left ventricular wall thickness, normal wall motion, mild tricuspid regurgitation, Continue home enalapril 20 mg BID and home carvedilol 6.25 mg BID Echocardiogram (11/23): The left ventricular systolic function is low normal with an estimated ejection fraction in the range of 50- 55%. Normal left ventricular size. Wall thickness is normal. No regional wall motion abnormalities are present. There is trace tricuspid valve regurgitation. The estimated pulmonary arterial pressure is 31.7 mmHg. GERD Continue home Protonix DVT prophylaxis with SCDs
[2017-11-25] MEDS: Benzocaine/Menthol 15 MG/3.6 MG SF Lozenge BUCCAL PRN (22:00)
[2017-11-26] MEDS: Benzocaine/Menthol 15 MG/3.6 MG SF Lozenge BUCCAL PRN ×3 (04:51→10:27)
[2017-11-26 09:57] LABS: Baso % (Auto) 0.2 % (0.0-2.0); Eos % (Auto) 0.1 % (0.0-4.0); Hematocrit 30.1 % (35.0-46.0); Hemoglobin 10.2 gm/dL (11.6-15.3); Lymph # (Auto) 1.2 th/mm3 (1.0-4.8); Lymph % (Auto) 13.2 % (9.0-44.0); Mean Corpuscular HGB Conc 33.8 % (32.0-36.0); Mean Corpuscular Hemoglobin 30.7 pg (27.0-34.0); Mean Corpuscular Volume 90.8 fL (80.0-100.0); Mean Platelet Volume 9.3 fL (7.0-11.0); Mono # (Auto) 0.7 th/mm3 (0.0-0.9); Mono % (Auto) 7.9 % (0.0-8.0); Neut # (Auto) 6.9 th/mm3 (1.8-7.7); Neut % (Auto) 78.6 % (16.0-70.0); Platelet Count 172 th/mm3 (150-450); Red Blood Count 3.31 mil/mm3 (4.00-5.30); Red Cell Distribution Width 15.7 % (11.6-17.2); White Blood Count 8.7 th/mm3 (4.0-11.0)
[2017-11-26 10:20] LABS: Calcium 8.5 mg/dL (8.5-10.1); Carbon Dioxide 28.1 meq/L (21.0-32.0); Potassium 4.4 meq/L (3.5-5.1)
[2017-11-26] MEDS: Carvedilol 6.25 MG Tablet PO SCH (10:26)
[2017-11-26] MEDS: Senna/Docusate Sodium 8.6/50 MG Tablet PO SCH (10:26)
[2017-11-26] MEDS: buPROPion 150 MG 12 HR Tablet PO SCH (10:27)
--- NOTE | 2017-11-26 14:03 | P.PNIM ---
Subjective Interval history: No new complaints. Physical Exam Vital signs: Vital Signs 11/25/17 16:00 11/25/17 20:00 11/26/17 00:00 Temperature 98.4 F 98 F 97.9 F Pulse Rate 72 78 77 Respiratory Rate 16 18 18 Blood Pressure 169/78 H 145/67 H 179/70 H Pulse Oximetry 97 97 97 11/26/17 04:00 11/26/17 08:00 Temperature 97.9 F 98.2 F Pulse Rate 82 79 Respiratory Rate 18 16 Blood Pressure 163/76 H 150/84 H Pulse Oximetry 97 95 Intake & Output 11/25/17 11/26/17 11/26/17 18:59 06:59 18:59 Intake Total 1680 / 1680 420 / 420 Output Total 1200 / 1200 1000 / 1000 Balance 480 / 480 -580 / -580 Intake: IV 300 / 300 200 / 200 Ofirmev Inj 1,000 mg In 100 ml 100 / 100 200 / 200 @ 400 mls/hr IV.SIG Q8H CAROL Rx# :[id number] Ancef 2 GM Premix Inj 2 gm In 100 / 100 50 ml @ 100 mls/hr IV.SIG Q8H CAROL Rx#:[id number] Ancef Inj 1,000 MG In NS Inj 100 / 100 100 ML @ 100 mls/hr IV.SIG ONCE ONE Rx#:[id number] Oral 1380 / 1380 220 / 220 Output: Urine 850 / 850 1000 / 1000 Urine Amount (Catheter) 350 / 350 Indwelling Urethral Catheter 350 / 350 Other: Date of Last Bowel Movement 11/19/17 11/19/17 # Bowel Movements 0 Narrative: GENERAL: This is a well-nourished, well-developed patient, in no apparent distress. SKIN: Large scattered ecchymotic areas bilateral upper and lower extremities. small abrasion right side of face neck brace in place and SPENSER drain in place CARDIOVASCULAR: Regular rate and rhythm RESPIRATORY: Clear to auscultation. Breath sounds equal bilaterally. GASTROINTESTINAL: Abdomen soft, non-tender, nondistended. Normal active bowel sounds MUSCULOSKELETAL: Extremities without clubbing, cyanosis. BUE 3/5, BLE 4/5. BLE 1+ pitting edema NEURO: Alert & Oriented x4 to person, place, time, situation. Moves all ext x4 - Urinary Catheter Management Indwelling Urethral Catheter Cath placed during this visit: yes Reason for continuing: Other continuation reason Insertion date: 11/24/17 Insertion time: 12:10 Results - Labs CBC & Chem 7: 11/26/17 08:20 11/26/17 08:20 Microbiology 11/23/17 05:30 Clean Catch Urine Urine Culture - Final 10-50,000 cfu/mL mixed gram positive dagoberto (probable contaminants) - Imaging Head CT 11/23/17 04:06 CONCLUSION: 1. No acute findings. 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 Cervical Spine MRI 11/23/17 04:53 CONCLUSION: 1. Anterior fixation and bony fusion from C5 through C7. Due to a combination of grade 1 retrolisthesis of C3 on 4 and C4 on 5 in combination with regional disc bulges, there is severe spinal stenosis at both the C3-4 and C4-5 levels with marked cord compression. 2. Foraminal narrowing which may be severe enough to compromise the right C3 nerve root. Neural foramina are adequate at all remaining levels. Chest X-Ray 11/23/17 14:39 CONCLUSION: Negative examination. Cervical Spine X-Ray 11/24/17 00:00 CONCLUSION: Images document hardware related to ACDF at C3-C5. Assessment and Plan - Plan Frequent falls Cervical cord compression Spinal stenosis Cervical myelopathy CT of the head (11/23) no acute findings. Small remote infarct in the right frontal white matter MRI cervical spine reveals (11/23) spinal stenosis and cord compression 1. Anterior fixation and bony fusion from C5 through C7. Due to a combination of grade 1 retrolisthesis of C3 on 4 and C4 on 5 in combination with regional disc bulges there is severe spinal stenosis at both the C3-4 and C4-5 levels with marked cord compression. 2. Foraminal narrowing which may be severe enough to compromise the right C3 nerve root. Neural foramina are adequate at all remaining levels. - Pt taken to the OR for multilevel cervical discectomy with fusion by Dr. Garcia (11/24) - C3-4, C4-5 anterior cervical discectomy - interbody arthrodeses using PEEK cage filled with autologous bone graft, Simplicity plate and screws - tramadol prn - IV tylenol q8h x 24 hours - SPENSER drain mgmt per NSX - Case d/w neurosurgery service (11/25) - PT - Pt will need SNF placement at the end of current hospitalization - SCDs for DVT prophylaxis - supportive care Chronic kidney disease stage III On admission BUN 42, creatinine 1.4, estimated GFR 37. Review of outpatient records patient has had chronic kidney disease stage III with BUN and averaging in the low 30s creatinine 1.1-1.4 and estimated GFR 34-59 Patient has 1+ BLE pitting edema Lasix 20 mg x 1 11/23 - BUN/Cr 25/1.01 (11/25) - BUN/Cr 29/0.98 (11/26) Hypertension - enalapril 20 mg BID - carvedilol 6.25 mg BID - clonidine PRN Dilated cardiomyopathy 2D echocardiogram 02/24/2016 revealed ejection fraction of 65% normal chamber dimensions, normal left ventricular wall thickness, normal wall motion, mild tricuspid regurgitation, Continue home enalapril 20 mg BID and home carvedilol 6.25 mg BID Echocardiogram (11/23): The left ventricular systolic function is low normal with an estimated ejection fraction in the range of 50- 55%. Normal left ventricular size. Wall thickness is normal. No regional wall motion abnormalities are present. There is trace tricuspid valve regurgitation. The estimated pulmonary arterial pressure is 31.7 mmHg. GERD Continue home Protonix DVT prophylaxis with SCDs
--- NOTE | 2017-11-26 14:24 | P.PNNS ---
Subjective Interval history: Pt complains of neck pain. She has stable paresthesias in UEs. She states she ambulated short distance today. Physical Exam Vital signs: Vital Signs 11/25/17 16:00 11/25/17 20:00 11/26/17 00:00 Temperature 98.4 F 98 F 97.9 F Pulse Rate 72 78 77 Respiratory Rate 16 18 18 Blood Pressure 169/78 H 145/67 H 179/70 H Pulse Oximetry 97 97 97 11/26/17 04:00 11/26/17 08:00 11/26/17 12:00 Temperature 97.9 F 98.2 F 97.7 F Pulse Rate 82 79 86 Respiratory Rate 18 16 16 Blood Pressure 163/76 H 150/84 H 125/71 Pulse Oximetry 97 95 97 Intake & Output 11/25/17 11/26/17 11/26/17 18:59 06:59 18:59 Intake Total 1680 / 1680 420 / 420 Output Total 1200 / 1200 1000 / 1000 Balance 480 / 480 -580 / -580 Intake: IV 300 / 300 200 / 200 Ofirmev Inj 1,000 mg In 100 ml 100 / 100 200 / 200 @ 400 mls/hr IV.SIG Q8H CAROL Rx# :[id number] Ancef 2 GM Premix Inj 2 gm In 100 / 100 50 ml @ 100 mls/hr IV.SIG Q8H CAROL Rx#:[id number] Ancef Inj 1,000 MG In NS Inj 100 / 100 100 ML @ 100 mls/hr IV.SIG ONCE ONE Rx#:[id number] Oral 1380 / 1380 220 / 220 Output: Urine 850 / 850 1000 / 1000 Urine Amount (Catheter) 350 / 350 Indwelling Urethral Catheter 350 / 350 Other: Date of Last Bowel Movement 11/19/17 11/19/17 # Bowel Movements 0 - Constitutional no acute distress, mild distress, average body habitus - Routine HEENT Exam Head: Present: normocephalic, atraumatic Eye: Present: PERRL - Routine Neck Exam Comments: [place] J cervical collar in place. - Routine Respiratory Exam Present: CTA bilaterally. Absent: patient mechanically ventilated, rhonchi, wheezes - Routine Cardiovascular Exam Present: RRR, S1, S2, murmur - Routine Abdominal Exam Present: soft, normoactive bowel sounds. Absent: tenderness, distended - Routine Skin Exam Present: intact (Incision clean and dry.). Absent: cyanosis, erythema - Routine Neurological Exam Present: alert, oriented X3, sensory deficit (Pt with stable paresthesias and numbness in UEs.), motor deficit (Pt with limited mobility with generalized weakness in extremities from her cervical myelopathy.), normal speech - Urinary Catheter Management Indwelling Urethral Catheter Cath placed during this visit: yes Reason for continuing: Other continuation reason Insertion date: 11/24/17 Insertion time: 12:10 Assessment and Plan - Assessment (1) Falls frequently Code(s): R29.6 - Repeated falls Status: Acute (2) Cervical myelopathy Code(s): G95.9 - Disease of spinal cord, unspecified Status: Acute - Plan Head CT 11/23/17 04:06 CONCLUSION: 1. No acute findings. 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 Cervical Spine MRI 11/23/17 04:53 CONCLUSION: 1. Anterior fixation and bony fusion from C5 through C7. Due to a combination of grade 1 retrolisthesis of C3 on 4 and C4 on 5 in combination with regional disc bulges, there is severe spinal stenosis at both the C3-4 and C4-5 levels with marked cord compression. 2. Foraminal narrowing which may be severe enough to compromise the right C3 nerve root. Neural foramina are adequate at all remaining levels. Chest X-Ray 11/23/17 14:39 CONCLUSION: Negative examination. 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 Pt has undergone a cervical ACF by Dr. Garcia. Chronic kidney disease stage III On admission BUN 42, creatinine 1.4, estimated GFR 37. Review of outpatient records patient has had chronic kidney disease stage III with BUN and averaging in the low 30s creatinine 1.1-1.4 and estimated GFR 34-59 Patient has 1+ BLE pitting edema Lasix 20 mg x 1 Recheck BMP in a.m. Hypertension Continue home enalapril 20 mg BID and home carvedilol 6.25 mg BID Dilated cardiomyopathy 2D echocardiogram 02/24/2016 revealed ejection fraction of 65% normal chamber dimensions, normal left ventricular wall thickness, normal wall motion, mild tricuspid regurgitation, Continue home enalapril 20 mg BID and home carvedilol 6.25 mg BID Pulmonary: aggressive pulmonary toilette, nasotracheal suction, and breathing treatments with nebulizers. Daily PT and OT Renal: Continue to monitor closely urine output, BUN and creatinine Endocrine: Continue to Monitor serial Acu checks and SSI as needed in detail ID continue to monitor for signs of infection Continue Protonix for stress ulcer prophylaxis Continue Walter hose and SCD's for DVT prophylaxis Pt will benefit from rehab placement given her residual effects of her cervical myelopathy.
--- NOTE | 2017-11-27 10:20 | P.PNIM ---
Subjective Interval history: Pt complains of some pain this morning but has not used the Tramadol since 11/26 @ 450AM and her last dose of IV Offirmev was on 11/26 @ 1600 She reports that she walked a few feet with PT yesterday She had several BMs yesterday tolerating oral intake. Physical Exam Vital signs: Vital Signs 11/26/17 12:00 11/26/17 16:00 11/26/17 20:00 Temperature 97.7 F 97.9 F 97.6 F Pulse Rate 86 73 75 Respiratory Rate 16 16 18 Blood Pressure 125/71 179/91 H 194/82 H Pulse Oximetry 97 99 97 11/27/17 00:00 Temperature 98.0 F Pulse Rate 97 H Respiratory Rate 18 Blood Pressure 121/79 Pulse Oximetry 96 Intake & Output 11/26/17 11/27/17 11/27/17 18:59 06:59 18:59 Intake Total 480 / 480 240 / 240 Output Total 450 / 450 Balance 480 / 480 -210 / -210 Intake: Oral 480 / 480 240 / 240 Output: Urine 450 / 450 Other: # Voids 3 Date of Last Bowel Movement 11/26/17 11/26/17 # Bowel Movements 1 Narrative: GENERAL: NAD, AAOx3 SKIN: Large scattered ecchymotic areas bilateral upper and lower extremities. small abrasion right side of face neck brace in place CARDIO: Regular rate and rhythm CHEST: Clear to auscultation. Breath sounds equal bilaterally. ABD: Abdomen soft, non-tender, nondistended. Normal active bowel sounds EXT: Extremities without clubbing, cyanosis. BUE 3/5, BLE 4/5. - Urinary Catheter Management Indwelling Urethral Catheter Cath placed during this visit: yes Reason for continuing: Other continuation reason Insertion date: 11/24/17 Insertion time: 12:10 Results - Labs CBC & Chem 7: 11/26/17 08:20 11/26/17 08:20 Laboratory Results - last 24 hr 11/26/17 08:20 Sodium 139 Potassium 4.4 Chloride 106 Carbon Dioxide 28.1 Anion Gap 5 BUN 29 H Creatinine 0.98 Estimated GFR 56 L Random Glucose 80 Calcium 8.5 Magnesium 2.0 - Imaging Head CT 11/23/17 04:06 CONCLUSION: 1. No acute findings. 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 Cervical Spine MRI 11/23/17 04:53 CONCLUSION: 1. Anterior fixation and bony fusion from C5 through C7. Due to a combination of grade 1 retrolisthesis of C3 on 4 and C4 on 5 in combination with regional disc bulges, there is severe spinal stenosis at both the C3-4 and C4-5 levels with marked cord compression. 2. Foraminal narrowing which may be severe enough to compromise the right C3 nerve root. Neural foramina are adequate at all remaining levels. Chest X-Ray 11/23/17 14:39 CONCLUSION: Negative examination. Cervical Spine X-Ray 11/24/17 00:00 CONCLUSION: Images document hardware related to ACDF at C3-C5. Assessment and Plan - Assessment (1) Cervical myelopathy Code(s): G95.9 - Disease of spinal cord, unspecified Status: Acute Plan: Frequent falls Cervical cord compression Spinal stenosis Cervical myelopathy - Pt is a 67 y/o female with chronic kidney disease stage III, hypertension, dilated cardiomyopathy, scoliosis of lumbar spine, fibromyalgia, cervical radiculitis, spinal stenosis and GERD. Patient presents to the ED at [facility] [place] on with complaints of frequent falls. - CT of the head (11/23) no acute findings. 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 Anterior fixation and bony fusion from C5 through C7. Due to a combination of grade 1 retrolisthesis of C3 on 4 and C4 on 5 in combination with regional disc bulges there is severe spinal stenosis at both the C3-4 and C4-5 levels with marked cord compression. 2. Foraminal narrowing which may be severe enough to compromise the right C3 nerve root. Neural foramina are adequate at all remaining levels. - Pt taken to the OR for multilevel cervical discectomy with fusion by Dr. Garcia (11/24) - C3-4, C4-5 anterior cervical discectomy - Interbody arthrodeses using PEEK cage filled with autologous bone graft, Simplicity plate and screws - Tramadol prn pain - Constipation precautions - SPENSER drain removed per NSX - PT daily - Consult OT - Pt has chosen [facility] for SNF at discharge. She reports that Dr. Garcia told her she would be cleared for discharge from his standpoint tomorrow. - Cont. supportive care Chronic kidney disease stage III - On admission BUN 42, creatinine 1.4, estimated GFR 37. - Review of outpatient records patient has had chronic kidney disease stage III with BUN and averaging in the low 30s creatinine 1.1-1.4 and estimated GFR 34-59 - Patient had 1+ BLE pitting edema at admission and was given Lasix 20 mg x 1 - BUN/Cr 25/1.01 (11/25) - BUN/Cr 29/0.98 (11/26) Hypertension - Pt is on Enalapril 20 mg BID and Carvedilol 6.25 mg BID - clonidine PRN Dilated cardiomyopathy - Previous 2D echocardiogram (02/24/2016) revealed ejection fraction of 65% normal chamber dimensions, normal left ventricular wall thickness, normal wall motion, mild tricuspid regurgitation, - Repeat Echocardiogram (11/23): The left ventricular systolic function is low normal with an estimated ejection fraction in the range of 50- 55%. Normal left ventricular size. Wall thickness is normal. No regional wall motion abnormalities are present. There is trace tricuspid valve regurgitation. The estimated pulmonary arterial pressure is 31.7 mmHg. - Continue home enalapril 20 mg BID and home carvedilol 6.25 mg BID GERD Continue home Protonix DVT prophylaxis with SCDs The exam, history, and the medical decision-making described in the above note were completed with the assistance of the mid-level provider. I reviewed and agree with the findings presented. I attest that I had a [id number] encounter with the patient on the same day, and personally performed and documented my assessment and findings in the medical record.
[2017-11-27] MEDS: Senna/Docusate Sodium 8.6/50 MG Tablet PO SCH ×2 (11:00→16:08)
[2017-11-27] MEDS: buPROPion 150 MG 12 HR Tablet PO SCH ×2 (11:00→16:08)
[2017-11-27] MEDS: Carvedilol 6.25 MG Tablet PO SCH ×2 (11:00→16:09)
[2017-11-27] MEDS: Benzocaine/Menthol 15 MG/3.6 MG SF Lozenge BUCCAL PRN (11:11)
--- NOTE | 2017-11-27 11:14 | P.PNNS ---
Subjective Interval history: 11/27: reports upper extremity strength improving, continues with weakness in her legs. Physical Exam Vital signs: Vital Signs 11/26/17 12:00 11/26/17 16:00 11/26/17 20:00 Temperature 97.7 F 97.9 F 97.6 F Pulse Rate 86 73 75 Respiratory Rate 16 16 18 Blood Pressure 125/71 179/91 H 194/82 H Pulse Oximetry 97 99 97 11/27/17 00:00 11/27/17 08:00 Temperature 98.0 F Pulse Rate 97 H 98 H Respiratory Rate 18 16 Blood Pressure 121/79 129/96 H Pulse Oximetry 96 97 Intake & Output 11/26/17 11/27/17 11/27/17 18:59 06:59 18:59 Intake Total 480 / 480 240 / 240 Output Total 450 / 450 Balance 480 / 480 -210 / -210 Intake: Oral 480 / 480 240 / 240 Output: Urine 450 / 450 Other: # Voids 3 Date of Last Bowel Movement 11/26/17 11/26/17 # Bowel Movements 1 Narrative: Alert, follows commands cervical collar in place wound with dressing in place - Urinary Catheter Management Indwelling Urethral Catheter Cath placed during this visit: yes Reason for continuing: Other continuation reason Insertion date: 11/24/17 Insertion time: 12:10 Assessment and Plan - Plan maintain cervical collar, ok to remove with meals cont PT, OT Pt will benefit from rehab placement given her residual effects of her cervical myelopathy clear to dc to rehab from [facility] standpoint follow up Dr. Garcia office in 1 week
--- NOTE | 2017-12-02 16:31 | P.DS ---
Date of admission: 11/26/17 14:00 Primary care physician: Cody Nicole DO Anticipated date of discharge: 11/27/17 Brief History from admission: This is a 67-year-old female patient with past medical history which includes chronic kidney disease stage III, hypertension, dilated cardiomyopathy 2D echocardiogram 02/24/2016 revealed ejection fraction of 65% normal chamber dimensions, normal left ventricular wall thickness, normal wall motion, mild tricuspid regurgitation, scoliosis of lumbar spine, fibromyalgia, cervical radiculitis, spinal stenosis and GERD. Patient presents to the emergency department today with complaints of frequent falls. Patient reports that she had a, "bad fall," back in July then had been doing well since then until 3 days ago. Patient reports for the past 3 days she has been having frequent falls and increasing weakness in her bilateral upper extremities. Patient does believe she hit her head during some of her falls but denies loss of consciousness. Patient reports that her arms feel heavy. Patient has not been able to squeeze the pump at the gas pump. Patient denies N/V, fevers, chills, shortness of breath or chest pain. PMH: chronic kidney disease stage III, hypertension, dilated cardiomyopathy 2D echocardiogram 02/24/2016 revealed ejection fraction of 65% normal chamber dimensions, normal left ventricular wall thickness, normal wall motion, mild tricuspid regurgitation, scoliosis of lumbar spine, fibromyalgia, cervical radiculitis, spinal stenosis GERD PSxH: Appendectomy Cervical vertebral fusion Right knee C section coloscopy EGD Lumbar paravertebral facelift tubal ligation FMH: colon cancer prostate cancer HTN renal disease Social history: lives alone denies ETOH use former cigarette smoker quit 20 plus years ago denies illicit drug use DS: Diagnosis - Discharge Diagnosis (1) Cervical myelopathy Status: Acute DS: Medications - Discharge Medications Prescriptions: tramadol 50 mg PO Q6H PRN #12 tab PRN Reason: Pain DS: Summary Hospital Course: - Assessment (1) Cervical myelopathy Code(s): G95.9 - Disease of spinal cord, unspecified Status: Acute Plan: Frequent falls Cervical cord compression Spinal stenosis Cervical myelopathy - Pt is a 67 y/o female with chronic kidney disease stage III, hypertension, dilated cardiomyopathy, scoliosis of lumbar spine, fibromyalgia, cervical radiculitis, spinal stenosis and GERD. [place] [facility] [place] complaints of frequent falls. - CT of the head (11/23) no acute findings. 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 Anterior fixation and bony fusion from C5 through C7. Due to a combination of grade 1 retrolisthesis of C3 on 4 and C4 on 5 in combination with regional disc bulges there is severe spinal stenosis at both the C3-4 and C4-5 levels with marked cord compression. 2. Foraminal narrowing which may be severe enough to compromise the right C3 nerve root. Neural foramina are adequate at all remaining levels. - Pt taken to the OR for multilevel cervical discectomy with fusion by Dr. Garcia (11/24) - C3-4, C4-5 anterior cervical discectomy - Interbody arthrodeses using PEEK cage filled with autologous bone graft, Simplicity plate and screws - Tramadol prn pain - Constipation precautions - SPENSER drain removed per NSX - PT daily - Consult OT - Pt has chosen [facility] for SNF at discharge. - Cont. supportive care Chronic kidney disease stage III - On admission BUN 42, creatinine 1.4, estimated GFR 37. - Review of outpatient records patient has had chronic kidney disease stage III with BUN and averaging in the low 30s creatinine 1.1-1.4 and estimated GFR 34-59 - Patient had 1+ BLE pitting edema at admission and was given Lasix 20 mg x 1 - BUN/Cr 25/1.01 (11/25) - BUN/Cr 29/0.98 (11/26) Hypertension - Pt is on Enalapril 20 mg BID and Carvedilol 6.25 mg BID - clonidine PRN Dilated cardiomyopathy - Previous 2D echocardiogram (02/24/2016) revealed ejection fraction of 65% normal chamber dimensions, normal left ventricular wall thickness, normal wall motion, mild tricuspid regurgitation, - Repeat Echocardiogram (11/23): The left ventricular systolic function is low normal with an estimated ejection fraction in the range of 50- 55%. Normal left ventricular size. Wall thickness is normal. No regional wall motion abnormalities are present. There is trace tricuspid valve regurgitation. The estimated pulmonary arterial pressure is 31.7 mmHg. - Continue home enalapril 20 mg BID and home carvedilol 6.25 mg BID GERD Continue home Protonix - Time Spent with Patient Total time spent providing and/or coordinating discharge services: - Quality: VTE Deep Vein Thrombosis/Pulmonary Embolism Present on Admission: No Exam Vital signs: heart reg lung cta abd s/nt ext no edema Results Procedures completed during hospitalization: see above - Impressions ITS Impressions Head CT 11/23/17 04:06 CONCLUSION: 1. No acute findings. 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 Cervical Spine MRI 11/23/17 04:53 CONCLUSION: 1. Anterior fixation and bony fusion from C5 through C7. Due to a combination of grade 1 retrolisthesis of C3 on 4 and C4 on 5 in combination with regional disc bulges, there is severe spinal stenosis at both the C3-4 and C4-5 levels with marked cord compression. 2. Foraminal narrowing which may be severe enough to compromise the right C3 nerve root. Neural foramina are adequate at all remaining levels. Chest X-Ray 11/23/17 14:39 CONCLUSION: Negative examination. Cervical Spine X-Ray 11/24/17 00:00 CONCLUSION: Images document hardware related to ACDF at C3-C5. Discharge Plan - Discharge Disposition Patient Disposition: Discharge to SNF - Discharge Condition Condition: Stable - Discharge Order Discharge Orders: Discharge Order (Routine); Ordered 11/27/17 Ordered By: Mary Lei Neurosurgery Clear for Discharge (Routine); Ordered 11/27/17 Ordered By: Antonina Mullen - Discharge Details Anticipated Discharge Date: 11/27/17 - Physicians Team Primary Care Provider: Cody Nicole Attending Provider: Cory Haider Other Providers: Pradeep Garcia MD ; [facility],[place]
== END 2017-11-27 17:45 ==
LOC: NEPC 03:06 → INTOOBSV 07:28 → NEDA 07:28 → NEPGCP 11:10 → N06 11-24 14:46
PROVIDERS: ADMIT Hospitalist; ATTEND Hospitalist

== ENCOUNTER 2018-01-27 20:46 | Observation (INO) ==
[2018-01-27] MEDS ORDERED: ceFAZolin 2 GM Premix Inj 2 GM/50 ML PIGGYBACK IV.SIG ONE ×2 (20:52→22:31)
[2018-01-27] MEDS ORDERED: Tetanus/Diphtheria Toxoid Adult Vaccine Inj 0.5 ML Vial IM ONE (20:52)
[2018-01-27] MEDS ORDERED: Sod Chloride 0.9% Inj 1,000 ML IV.CONT SCH (21:00)
[2018-01-27 21:16] LABS: Baso # (Auto) 0.1 th/mm3 (0.0-0.2); Baso % (Auto) 1.1 % (0.0-2.0); Eos % (Auto) 0.1 % (0.0-4.0); Hematocrit 33.1 % (35.0-46.0); Hemoglobin 10.8 gm/dL (11.6-15.3); Lymph # (Auto) 0.9 th/mm3 (1.0-4.8); Lymph % (Auto) 7.6 % (9.0-44.0); Mean Corpuscular HGB Conc 32.7 % (32.0-36.0); Mean Corpuscular Hemoglobin 30.7 pg (27.0-34.0); Mean Platelet Volume 8.7 fL (7.0-11.0); Mono # (Auto) 0.7 th/mm3 (0.0-0.9); Mono % (Auto) 5.8 % (0.0-8.0); Neut # (Auto) 10.2 th/mm3 (1.8-7.7); Neut % (Auto) 85.4 % (16.0-70.0); Platelet Count 294 th/mm3 (150-450); Red Blood Count 3.52 mil/mm3 (4.00-5.30); Red Cell Distribution Width 16.3 % (11.6-17.2)
[2018-01-27 21:35] LABS: Activated Partial Thrombo Time 22.4 sec (24.3-30.1); INR 1.1 Ratio; Prothrombin Time 10.7 sec (9.8-11.6)
--- NOTE | 2018-01-27 21:40 | XR ---
EXAM DATE: 01/27/2018 9:36 PM EDT AGE/SEX: 67 years / Female INDICATIONS: Shortness of breath. CLINICAL DATA: This is the patient's initial encounter. Patient reports that signs and symptoms have been present for 1 day and indicates a pain score of 0/10. MEDICAL/SURGICAL HISTORY: Hypertension. None. COMPARISON: [facility] [place]ST 1V SINGLE AP, 11/23/2017. . FINDINGS: The lungs are clear without infiltrate, nodule, or mass. There is no appreciable pleural effusion for technique. Heart and mediastinum are unremarkable. CONCLUSION: No acute cardiopulmonary disease. Electronically signed by: Gayatri Madden MD 01/27/2018 9:39 PM EDT
--- NOTE | 2018-01-27 21:41 | XR ---
EXAM DATE: 01/27/2018 9:38 PM EDT AGE/SEX: 67 years / Female INDICATIONS: Left knee pain after falling today. CLINICAL DATA: This is the patient's initial encounter. Patient reports that signs and symptoms have been present for 1 day and indicates a pain score of 6/10. MEDICAL/SURGICAL HISTORY: Hypertension. None. COMPARISON: . FINDINGS: No definite fractures, or dislocations are identified. No definite lytic or sclerotic les ion is seen. Extensive and far advanced osteoarthritis lateral compartment, to a slight degree media l compartment and patellofemoral joint. CONCLUSION: Extensive osteoarthritis lateral compartment. Electronically signed by: Gayatri Madden MD 01/27/2018 9:40 PM EDT
[2018-01-27 21:45] LABS: Anion Gap 8 meq/L (5-15); Blood Urea Nitrogen 33 mg/dL (7-18); Calcium 8.4 mg/dL (8.5-10.1); Carbon Dioxide 22.1 meq/L (21.0-32.0); Chloride 107 meq/L (98-107); Glomerular Filtration Rate 43 mL/min (>89); Glucose,Random 107 mg/dL (74-106); Potassium 4.5 meq/L (3.5-5.1); Sodium 137 meq/L (136-145)
--- NOTE | 2018-01-27 22:19 | ED ---
HPI General Chief Complaint: Fall Stated Complaint: fall Time Seen by Provider: 01/27/18 20:52 Source: patient and EMS Mode of arrival: ambulatory Limitations: no limitations History of Present Illness complaint: fall Onset (ago): minute(s) (30) Fall from: standing Fall witnessed: no Place fall occurred: home Loss of consciousness: none Prolonged down time: no Symptoms prior to fall: none Context: tripped/slipped Location of injury - extremities: Right: knee Severity: moderate Quality: burning, stabbing and spasming Related Data Home Medications Medication Instructions Recorded Confirmed acetaminophen 500 mg PO Q12H PRN 11/23/17 01/27/18 bupropion HCl 300 mg PO QAM 11/23/17 01/27/18 carvedilol 6.25 mg PO BID 11/23/17 01/27/18 cholecalciferol (vitamin D3) 5,000 unit PO DAILY 11/23/17 01/27/18 [Vitamin D3] enalapril maleate 20 mg PO BID 11/23/17 01/27/18 folic acid 0.4 mg PO DAILY 11/23/17 01/27/18 glucosamine sulfate [Glucosamine] 500 mg PO BID 11/23/17 01/27/18 magnesium 70 mg PO DAILY 11/23/17 01/27/18 nitroglycerin [Nitrostat] 0.4 mg SUBLINGUAL Q5-15M PRN 11/23/17 01/27/18 pantoprazole [Protonix] 40 mg PO DAILY 11/23/17 01/27/18 Previous Rx's Medication Instructions Recorded tramadol 50 mg PO Q6H PRN #12 tab 11/27/17 Allergies Allergy/AdvReac Type Severity Reaction Status Date / Time diatrizoate meglumine Allergy Severe SHOCK Verified 11/25/17 09:01 gadobenic acid Allergy Severe SHOCK Verified 11/25/17 09:01 gadodiamide Allergy Severe SHOCK Verified 11/25/17 09:01 gadoteridol Allergy Severe SHOCK Verified 11/25/17 09:01 iodine Allergy Severe ANAPHLATIC Verified 11/25/17 09:01 SHOCK iodixanol Allergy Severe SHOCK Verified 11/25/17 09:01 iohexol Allergy Severe SHOCK Verified 11/25/17 09:01 potassium iodide Allergy Severe ANAPHLATIC Verified 11/25/17 09:01 SHOCK povidone-iodine Allergy Severe ANAPHLATIC Verified 11/25/17 09:01 SHOCK sodium iodide Allergy Severe ANAPHLATIC Verified 11/25/17 09:01 SHOCK sodium iodide Allergy Severe ANAPHLATIC Verified 11/25/17 09:01 SHOCK Dairy AdvReac Intermediate Constipatio Uncoded 11/12/11 20:26 n Review of Systems ROS: all other systems reviewed are negative PMFSH Social History Social History Substance History: No History of Abuse Second Hand Smoke Exposure: No Smoking Status: Never smoker Tobacco Type: Cigarettes How Often Do You Have a Drink Containing Alcohol: Never Recent Travel in [facility] [place] within the Last 8 Weeks: No Recent Out of Country Travel within the Last 8 Weeks: No Immunization History Tetanus Immunization: <5 Years Hx Influenza Vaccine This Season: Yes Exam Narrative Exam Narrative: GENERAL: 67-year-old female well-nourished well-developed moderate to severe distress secondary to a laceration SKIN: Large areas of ecchymosis and contusion over the lower extremities and about the left face. See musculoskeletal regarding knee. HEAD: Atraumatic. Normocephalic. EYES: Pupils equal and round. No scleral icterus. No injection or drainage. ENT: No nasal bleeding or discharge. Mucous membranes pink and moist. NECK: Trachea midline. No JVD. CARDIOVASCULAR: Regular rate and rhythm. No murmur appreciated. RESPIRATORY: No accessory muscle use. Clear to auscultation. Breath sounds equal bilaterally. GASTROINTESTINAL: Abdomen soft, non-tender, nondistended. Hepatic and splenic margins not palpable. MUSCULOSKELETAL: The left knee shows a deep laceration which starts about 2 cm above the superior aspect of patella and ends about 4 cm below the patella at its widest points about 10 cm across. The laceration involves the epidermis dermis and subcutaneous fat down to the fibers cartilaginous joint capsule. There is no joint capsule involvement. There is edema of the bilateral lower extremities 2+ pitting without asymmetry. Aside from the laceration there is no gross deformity or anatomic misalignment. Upper extremities normal. NEUROLOGICAL: Awake and alert. No obvious cranial nerve deficits. Motor grossly within normal limits. Normal speech. PSYCHIATRIC: Appropriate mood and affect; insight and judgment normal. Procedures Laceration Laceration 1: Site: lower extremity Side (If applicable): right Size (cm): 7 Description: flap and clean Anesthetic used: lidocaine 1% Anesthesia technique:: local infiltration Amount (mL): 4 Pre-repair:: wound explored, irrigated extensively and deep structures intact Skin layer closed with: other (Steri-Strips) Laceration 2: Site: lower extremity Side (If applicable): left Size (cm): 30 Description: flap Depth: simple, single layer Anesthetic used: lidocaine 1% Anesthesia technique:: local infiltration Amount (mL): 10 Pre-repair:: wound explored, irrigated extensively and deep structures intact Course Initial Documented Vital Signs Pulse Rate 96 H 01/27/18 20:50 Respiratory Rate 18 01/27/18 20:50 Blood Pressure 227/101 H 01/27/18 20:50 Pulse Oximetry 99 01/27/18 20:50 Last Documented Vital Signs Pulse Rate 65 01/28/18 00:07 Respiratory Rate 18 01/28/18 00:07 Blood Pressure 168/79 H 01/28/18 00:07 Pulse Oximetry 95 01/28/18 00:07 Critical Care Time Critical Care Time: Yes Total Critical Care Time: 35 Attestation: Aggregate critical care time was 35 minutes. Time to perform other separately billable procedures was not included in the critical care time. My time did not include minutes spent treating any other patients simultaneously or on activities that did not directly contribute to the patient's treatment. The services I provided to this patient were to treat and/or prevent clinically significant deterioration that could result in: Failure for appropriate care with failure to close knee leading to chronic disability in her complications not limited to necrotizing fasciitis I provided critical care services requiring my management, as noted below: Chart data review, documentation time, medication orders and management, vital sign assessments/reviewing monitor data, ordering and reviewing lab tests, ordering and interpreting/reviewing x-rays and diagnostic studies, care of the patient and discussion of the patient with the admitting physicians. [-] Medical Decision Making MDM Narrative Medical decision making narrative: The patient 67 years old and arrives by EMS. She had a fall from standing at home leading to a very large complex knee laceration at least 20 cm in length by 10 cm Y completely exposing the patella. The joint capsule itself was not involved. No fracture involving the knee on x-ray. Orthopedic surgery, Dr. Saunders, saw the soft tissue injury at bedside and advise plastic surgery repair. Case discussed with Dr. Shah plastic surgery who came into the ED to repair the wound. Case was discussed with Dr. Chapin for [facility]. Will admit the patient here with a plan for knee immobilizer fitting and physical therapy evaluation with setting up home health care for this 67-year-old female. Hypertension observed here patient received carvedilol and enalapril. Medical Screen Exam Complete: Yes Emergency Medical Condition: Yes Differential Diagnosis Differential Diagnosis: fracture, open fracture, avulsion, laceration Medical Records Medical records reviewed: Yes I reviewed the patient's medical records. Lab Data Lab results reviewed: Yes I reviewed the patient's lab results. Result diagrams: 01/27/18 21:05 01/27/18 21:05 Lab Results 01/27/18 01/27/18 01/27/18 Range/Units 21:05 21:05 21:05 WBC 12.0 H (4.0-11.0) th/mm3 RBC 3.52 L (4.00-5.30) mil/mm3 Hgb 10.8 L (11.6-15.3) gm/dL POC Hgb (Calc) (11.6-15.3) g/dL Hct 33.1 L (35.0-46.0) % POC Hct (35-46.0) % MCV 94.0 (80.0-100.0) fL MCH 30.7 (27.0-34.0) pg MCHC 32.7 (32.0-36.0) % RDW 16.3 (11.6-17.2) % Plt Count 294 (150-450) th/mm3 MPV 8.7 (7.0-11.0) fL Prelim Diff (Auto) Slide review pending Neut % (Auto) 85.4 H (16.0-70.0) % Lymph % (Auto) 7.6 L (9.0-44.0) % Jack % (Auto) 5.8 (0.0-8.0) % Eos % (Auto) 0.1 (0.0-4.0) % Baso % (Auto) 1.1 (0.0-2.0) % Neut # (Auto) 10.2 H (1.8-7.7) th/mm3 Lymph # (Auto) 0.9 L (1.0-4.8) th/mm3 Jack # (Auto) 0.7 (0.0-0.9) th/mm3 Eos # (Auto) 0.0 (0.0-0.4) th/mm3 Baso # (Auto) 0.1 (0.0-0.2) th/mm3 WBC Differential . Diff Scan Auto diff confirmed Differential Comment . PT 10.7 (9.8-11.6) sec INR 1.1 Ratio APTT 22.4 L (24.3-30.1) sec POC Sodium (137-144) mmol/L Sodium 137 (136-145) meq/L POC Potassium (3.6-5.0) mmol/L Potassium 4.5 (3.5-5.1) meq/L POC Chloride (102-111) mmol/L Chloride 107 (98-107) meq/L Carbon Dioxide 22.1 (21.0-32.0) meq/L Anion Gap 8 (5-15) meq/L POC BUN (5-21) mg/dL BUN 33 H (7-18) mg/dL Creatinine 1.24 H (0.50-1.00) mg/dL POC Creatinine (0.6-1.3) mg/dL Estimated GFR 43 L (>89) mL/min POC Glucose (68-110) mg/dL Random Glucose 107 H (74-106) mg/dL Calcium 8.4 L (8.5-10.1) mg/dL Serum Alcohol Less than 3 (0-5) mg/dL Blood Type Blood Type Recheck Antibody Screen 01/27/18 01/27/18 Range/Units 21:05 21:05 WBC (4.0-11.0) th/mm3 RBC (4.00-5.30) mil/mm3 Hgb (11.6-15.3) gm/dL POC Hgb (Calc) 10.5 L (11.6-15.3) g/dL Hct (35.0-46.0) % POC Hct 31.0 L (35-46.0) % MCV (80.0-100.0) fL MCH (27.0-34.0) pg MCHC (32.0-36.0) % RDW (11.6-17.2) % Plt Count (150-450) th/mm3 MPV (7.0-11.0) fL Prelim Diff (Auto) Neut % (Auto) (16.0-70.0) % Lymph % (Auto) (9.0-44.0) % Jack % (Auto) (0.0-8.0) % Eos % (Auto) (0.0-4.0) % Baso % (Auto) (0.0-2.0) % Neut # (Auto) (1.8-7.7) th/mm3 Lymph # (Auto) (1.0-4.8) th/mm3 Jack # (Auto) (0.0-0.9) th/mm3 Eos # (Auto) (0.0-0.4) th/mm3 Baso # (Auto) (0.0-0.2) th/mm3 WBC Differential Diff Scan Differential Comment PT (9.8-11.6) sec INR Ratio APTT (24.3-30.1) sec POC Sodium 138 (137-144) mmol/L Sodium (136-145) meq/L POC Potassium 4.5 (3.6-5.0) mmol/L Potassium (3.5-5.1) meq/L POC Chloride 106 (102-111) mmol/L Chloride (98-107) meq/L Carbon Dioxide (21.0-32.0) meq/L Anion Gap (5-15) meq/L POC BUN 32 H (5-21) mg/dL BUN (7-18) mg/dL Creatinine (0.50-1.00) mg/dL POC Creatinine 1.0 (0.6-1.3) mg/dL Estimated GFR (>89) mL/min POC Glucose 110 (68-110) mg/dL Random Glucose (74-106) mg/dL Calcium (8.5-10.1) mg/dL Serum Alcohol (0-5) mg/dL Blood Type AB Positive Blood Type Recheck Required Antibody Screen Negative Imaging Data Attestation: I personally reviewed and interpreted this imaging study as follows : Radiologist's impression: Knee X-Ray 01/27/18 20:52 CONCLUSION: Extensive osteoarthritis lateral compartment. Chest X-Ray 01/27/18 20:53 CONCLUSION: No acute cardiopulmonary disease. Discharge Plan Discharge Disposition Patient Disposition: 30 Still Patient Physicians Team ED Provider: Abner Calixto ED Midlevel Provider: Britton Portillo Primary Care Provider: Cody Nicole Attending Provider: Og Chapin Status ED Status: Admitted Observation Patient
[2018-01-27] MEDS ORDERED: HYDROmorphone PF Inj 0.5 MG/0.5 ML Syringe IV.PUSH STA (22:22)
[2018-01-27] MEDS ORDERED: HYDROmorphone PF Inj 2 MG/ML Vial IV.PUSH ONE (22:30)
[2018-01-27] MEDS ORDERED: Lidocaine 1% Inj 50 ML Vial INFILTRATN ONE (22:33)
[2018-01-27] MEDS ORDERED: Lidocaine 1%/Epinephrine 1:100,000 Inj 50 ML Vial ONE (22:34)
[2018-01-27] MEDS: Carvedilol 6.25 MG Tablet PO SCH (22:49)
[2018-01-27] MEDS: buPROPion 150 MG 12 HR Tablet PO SCH (22:49)
[2018-01-28] MEDS ORDERED: Ibuprofen 200 MG Tablet PO ONE (01:35)
--- NOTE | 2018-01-28 03:43 | MB ---
cc: Penny Shah MD DATE: 01/27/2018 REQUESTING PHYSICIAN: Abner Calixto MD REASON FOR CONSULTATION: Open complex wound over the left knee. HISTORY OF PRESENT ILLNESS: The patient is a 59-year-old female who fell at home. She apparently has fallen in the past and says she has fallen in the same place approximately 10 times. The patient came to the emergency room where it was noted that she had an open wound over her knee. The wound was felt to be too complex for repair by the ER staff and consultation is requested regarding evaluation and treatment of the open wound. PAST MEDICAL HISTORY: The patient is otherwise well. REVIEW OF SYSTEMS: Negative except as noted above. SOCIAL HISTORY: The patient works as a mental health professional. Smoking status is negative. Alcohol is negative. She does have a history of high blood pressure. She denies diabetes. She has history of a right brachial plexus injury, cervical stenosis. She has had a cervical vertebral fusion. She does have a history of chronic renal insufficiency, hypertension, lumbar stenosis. She does have neuropathy and a meniscal tear of her right knee. FAMILY HISTORY: Noncontributory. PAST SURGICAL HISTORY: As above, plus she had a and appendectomy. ALLERGIES: LISTED ON THE CHART. ALLERGY LIST INCLUDES DIATRIZOATE MEGLUMINE, GADOBENIC ACID, GADODIAMIDE, GADOTERIDOL IODINE, IODIXANOL IOHEXOL, POTASSIUM IODINE, POVIDONE IODINE, SODIUM IODIDE, AND DAIRY. THE PATIENT DOES ADMIT THAT TOPICAL POVIDONE IODINE, SHE IS NOT REACTIVE TO. MEDICATIONS: Listed on the chart. PHYSICAL EXAMINATION: GENERAL: The patient is lying comfortably on the stretcher. VITAL SIGNS: Pulse of 86, respiratory rate 20, blood pressure is elevated 215/98, pulse oximetry is 100 on room air. HEENT: Extraocular muscles are intact. Pupils are equal, round, and reactive to light. Mouth is clear. NECK: Supple without masses. LUNGS: Clear. HEART: Regular rate and rhythm. EXTREMITIES: Examination of extremities reveals an open wound of the knee. This is to the skin and subcutaneous tissue. It starts about 2 cm above the superior aspect of the patella and is 4 cm below. It is approximately 15 cm in length x 15 cm across. Some of the fat is disturbed and some of the deep structures are visible. There is adequate circulation to the flaps. There is some edema of left lower extremity. IMPRESSION: The patient has an open wound of her left knee area, which is large complex. PLAN: Operative repair. PROCEDURE: The area was prepped with Betadine and draped in the usual sterile fashion. Lidocaine 1% with epinephrine was injected around the edges of the wound and into the wound itself approximately 45 mL used. Once anesthetic has taken effect, the wound was copiously irrigated with saline. It was approximated with surgical clips. I am assisted by the ED PA. Once the edges are approximated, it is noted that the entire wound is closed. It is then Steri-Stripped using benzoin around the edges. Steri-Strips, povidone iodine ointment along with Adaptic, Telfa dressing, and a knee immobilizer. The patient was given back to the care of the ER staff. DISPOSITION: The patient is advised that she can come in, in 2-1/2 days for wound check. MD MINDI Galarza/catarina/alona , 11:18 PM , 11:26 PM HIEU
[2018-01-28 04:32] VITALS: RESP 16
[2018-01-28 08:00] VITALS: PULSE 85; TEMP 98.3
[2018-01-28 08:09] VITALS: BP 174/82
[2018-01-28] MEDS: buPROPion 150 MG 12 HR Tablet PO SCH (08:34)
[2018-01-28] MEDS: Carvedilol 6.25 MG Tablet PO SCH (08:35)
--- NOTE | 2018-01-28 08:43 | P.HPIM ---
History of Present Illness Primary Care Physician: Cody Nicole DO Chief Complaint: Left knee laceration History of Present Illness: Ms. Blanc is a 67 y/o female with CKD stage III, hypertension, dilated cardiomyopathy, scoliosis of lumbar spine, fibromyalgia, cervical radiculitis, spinal stenosis and GERD. Pt was recently admitted in November 2017 due to her cervical radiculopathy and was found to have severe spinal stenosis at both the C3-4 and C4-5 levels with marked cord compression. Pt underwent C3-4, C4-5 anterior cervical discectomy with fusion by Dr. Garcia on 11/24/17 and was discharged to [facility] for rehab. Pt states that she was there for three weeks and then was discharged home and has been ambulating at home with the use of a walker. Yesterday evening she reports that she was cooking dinner and was not using her walker for stability and fell sustaining a significant laceration to her left knee. She was unable to get herself up off the floor and was scooting herself around to get to her phone. Pt lives alone. After EVAC had to break into her house to get to her as she was unable to unlock the doors. She was brought to the ED and was found to have a very large complex knee laceration which according to the ED documentation was at least 20 cm in length by 10 cm Y completely exposing the patella. There was no fracture involving the knee on x-ray. Orthopedic surgery, Dr. Saunders, saw the soft tissue injury at bedside and advise plastic surgery repair. Dr. Shah came into the ED and cleaned and surgically repaired the wound with surgical clips with Steri-strips applied around the edges. The wound was dressed and the pt was placed in a knee immobilizer. Currently pt complains of some pain at the back of the knee this morning. She reports some swelling in the LE. She states that she takes Lasix periodically at home as needed for LE edema. She denies any SOB, chest pain, palpitations, dizziness, abd pain, nausea/vomiting. PMH: chronic kidney disease stage III hypertension dilated cardiomyopathy 2D echocardiogram 02/24/2016 revealed ejection fraction of 65% normal chamber dimensions, normal left ventricular wall thickness, normal wall motion, mild tricuspid regurgitation scoliosis of lumbar spine fibromyalgia cervical radiculitis spinal stenosis GERD PSxH: C3-4, C4-5 anterior cervical discectomy with fusion by Dr. Garcia (11/24) Appendectomy Cervical vertebral fusion Right knee C section coloscopy EGD Lumbar paravertebral facelift tubal ligation FMH: colon cancer prostate cancer HTN renal disease Social Hx: lives alone Pt uses a walker at home to assist with ambulation. She also has a wheelchair at home. denies ETOH use former cigarette smoker quit 20 plus years ago denies illicit drug use - Diagnosis (1) Laceration of knee, left (2) HTN (hypertension) (3) Fall Review of Systems Constitutional: Denies chills, Denies fever(s), Denies headache(s) Eyes: Denies change in vision, Denies double vision Ears, Nose, Mouth, and Throat: Denies dizziness, Denies nasal congestion, Denies post nasal drip, Denies throat swelling Cardiovascular: Denies chest pain, Denies shortness of breath Respiratory: Denies chest congestion, Denies cough Gastrointestinal: Denies abdominal pain, Denies nausea, Denies vomiting Genitourinary: Denies urinary incontinence, Denies urinary urgency Musculoskeletal: Reports joint pain, Denies back pain Skin/Breast: Reports unusual bruising, Reports wounds Neurologic: Denies confusion, Denies dizziness PMFSH - History History Provided By: Patient - Medical History Medical History: Medical History (Last Reviewed 01/28/18 @ 06:50 by Jaleesa Godfrey) Brachial plexus injury, right CRI (chronic renal insufficiency) Cervical stenosis of spinal canal Cervical vertebral fusion HTN (hypertension) Lumbar stenosis Neuropathy Right knee meniscal tear - Surgical History Surgical History: Surgical History (Last Reviewed 01/28/18 @ 06:50 by Jaleesa Godfrey) H/O: Hx of appendectomy - Tobacco History Second Hand Smoke Exposure: No Tobacco Use In Past 30 Days: No Smoking Status: Former smoker Tobacco Type: Cigarettes - Alcohol History How Often Do You Have a Drink Containing Alcohol: Never - Substance Use History Substance History: No History of Abuse - Travel History Recent Travel in the [place] Within the Last 8 Weeks: No Recent Travel Out of the Country Within the Last 8 Weeks: No - Immunization History Tetanus Immunization: <5 Years Hx Influenza Vaccine This Season: Yes Medications and Allergies Allergies Allergy/AdvReac Type Severity Reaction Status Date / Time diatrizoate meglumine Allergy Severe SHOCK Verified 11/25/17 09:01 gadobenic acid Allergy Severe SHOCK Verified 11/25/17 09:01 gadodiamide Allergy Severe SHOCK Verified 11/25/17 09:01 gadoteridol Allergy Severe SHOCK Verified 11/25/17 09:01 iodine Allergy Severe ANAPHLATIC Verified 11/25/17 09:01 SHOCK iodixanol Allergy Severe SHOCK Verified 11/25/17 09:01 iohexol Allergy Severe SHOCK Verified 11/25/17 09:01 potassium iodide Allergy Severe ANAPHLATIC Verified 11/25/17 09:01 SHOCK povidone-iodine Allergy Severe ANAPHLATIC Verified 11/25/17 09:01 SHOCK sodium iodide Allergy Severe ANAPHLATIC Verified 11/25/17 09:01 SHOCK sodium iodide Allergy Severe ANAPHLATIC Verified 11/25/17 09:01 SHOCK Dairy AdvReac Intermediate Constipatio Uncoded 11/12/11 20:26 n Home Medications Medication Instructions Recorded Confirmed Type acetaminophen 500 mg PO Q12H PRN 11/23/17 01/27/18 History bupropion HCl 300 mg PO QAM 11/23/17 01/27/18 History carvedilol 6.25 mg PO BID 11/23/17 01/27/18 History cholecalciferol (vitamin D3) 5,000 unit PO DAILY 11/23/17 01/27/18 History [Vitamin D3] enalapril maleate 20 mg PO BID 11/23/17 01/27/18 History folic acid 0.4 mg PO DAILY 11/23/17 01/27/18 History glucosamine sulfate [Glucosamine] 500 mg PO BID 11/23/17 01/27/18 History magnesium 70 mg PO DAILY 11/23/17 01/27/18 History nitroglycerin [Nitrostat] 0.4 mg SUBLINGUAL Q5-15M PRN 11/23/17 01/27/18 History pantoprazole [Protonix] 40 mg PO DAILY 11/23/17 01/27/18 History Active Medications: Active Medications Bupropion HCl (Wellbutrin Sr) 150 mg PO BID [facility] Last Admin: 01/27/18 22:49 Dose: 150 mg Carvedilol (Coreg) 6.25 mg PO BID [facility] Last Admin: 01/27/18 22:49 Dose: 6.25 mg Clonidine HCl (Catapres) 0.1 mg PO Q6H PRN PRN Reason: sbp > 160 Enalapril Maleate (Vasotec) 20 mg PO BID [facility] Last Admin: 01/27/18 22:49 Dose: 20 mg Enalaprilat (Vasotec Inj) 1.25 mg IV.PUSH Q6H PRN PRN Reason: sbp >180 Folic Acid (Folic Acid) 1 mg PO DAILY [facility] Furosemide (Lasix Inj) 20 mg IV.PUSH ONCE ONE Stop: 01/28/18 08:31 Lidocaine HCl (Lidoderm 5% Patch.12 Hr) 1 patch T-DERMAL DAILY [facility] Pantoprazole Sodium (Protonix) 40 mg PO DAILY [facility] Patch Removal (Remove Old Patch) 1 each T-DERMAL HS [facility] Sodium Chloride (Ns Flush) 2 ml IV.FLUSH BID [facility] Sodium Chloride (Ns Flush) 2 ml IV.FLUSH PRN PRN PRN Reason: FLUSH AFTER USING IV ACCESS Tramadol HCl (Ultram) 50 mg PO Q4H PRN PRN Reason: pain 3-10 Vitamin D (Vitamin D3) 5,000 unit PO DAILY [facility] Exam Vital signs: Vital Signs 01/27/18 20:50 01/27/18 21:01 01/27/18 21:02 Temperature Pulse Rate 96 H 96 H Respiratory Rate 18 Blood Pressure 227/101 H Pulse Oximetry 99 99 01/27/18 21:45 01/28/18 00:07 01/28/18 04:00 Temperature 98.0 F Pulse Rate 86 65 82 Respiratory Rate 20 18 16 Blood Pressure 215/98 H 168/79 H 178/81 H Pulse Oximetry 100 95 99 01/28/18 07:55 01/28/18 08:08 Temperature 98.3 F Pulse Rate 85 Respiratory Rate 16 Blood Pressure 205/88 H 174/82 H Pulse Oximetry 96 Intake & Output 01/27/18 01/28/18 01/28/18 18:59 06:59 18:59 Intake Total 2049 Balance 2049 Weight 70.307 kg Intake: IV 2049 LR 1000 mL Inj 1,000 ML @ 1000 1000 / 1000 mls/hr IV.CONT .Q1H [facility] Rx#: [id number] NS Inj 1,000 ML @ 1000 mls/hr 1000 / 1000 IV.CONT .Q1H [facility] Rx#:[id number] Ancef 2 GM Premix Inj 2 gm In 50 / 50 50 ml @ 100 mls/hr IV.SIG ONCE ONE Rx#:[id number] Narrative: GENERAL: NAD, AAOx3 SKIN: Large areas of ecchymosis and contusion over the upper and lower extremities and about the left face. HEENT: Atraumatic. Normocephalic. Pupils equal and round. No scleral icterus. No injection or drainage. No nasal bleeding or discharge. Mucous membranes pink and moist. NECK: Trachea midline. No JVD. CARDIOVASCULAR: Regular RESPIRATORY: No accessory muscle use. Clear to auscultation. Breath sounds equal bilaterally. GASTROINTESTINAL: +BS, soft, non-tender, nondistended. Hepatic and splenic margins not palpable. MUSCULOSKELETAL: Bilateral LE edema. LLE in knee immobilizer, bandages are c/d/ i NEUROLOGICAL: Awake and alert. No obvious cranial nerve deficits. Motor grossly within normal limits. Five out of 5 muscle strength in the arms and legs. Normal speech. PSYCHIATRIC: Appropriate mood and affect; Results - Labs CBC & Chem 7: 01/27/18 21:05 01/28/18 10:00 Labs: Short CBC 01/27/18 Range/Units 21:05 WBC 12.0 H (4.0-11.0) th/mm3 Hgb 10.8 L (11.6-15.3) gm/dL Hct 33.1 L (35.0-46.0) % Plt Count 294 (150-450) th/mm3 BMP 01/27/18 21:05 Sodium 137 Potassium 4.5 Chloride 107 Carbon Dioxide 22.1 BUN 33 H Creatinine 1.24 H Calcium 8.4 L - Imaging Impressions Knee X-Ray 01/27/18 20:52 CONCLUSION: Extensive osteoarthritis lateral compartment. Chest X-Ray 01/27/18 20:53 CONCLUSION: No acute cardiopulmonary disease. Caprini VTE Risk Assessment Caprini VTE Risk Assessment: Moderate/High Risk (score >= 2) VTE Pharmacological Exception Reason: High risk for bleeding VTE Mechanical Exception: LE injury/wound Caprini Risk Assessment Model: Point Value = 1 Point Value = 2 Point Value = 3 Point Value = 5 Age 41-60 Minor surgery BMI > 25 kg/m2 Swollen legs Varicose veins or History of unexplained or recurrent spontaneous Oral contraceptives or hormone replacement Sepsis (< 1 month) Serious lung disease, including pneumonia (< 1 month) Abnormal pulmonary function Acute myocardial infarction Congestive heart failure (< 1 month) History of inflammatory bowel disease Medical patient at bed rest Age 61-74 Arthroscopic surgery Major open surgery (> 45 min) Laparoscopic surgery (> 45 min) Malignancy Confined to bed (> 72 hours) Immobilizing plaster cast Central venous access Age >= 75 History of VTE Family history of VTE Factor V Leiden Prothrombin [id number] Lupus anticoagulant Anticardiolipin antibodies Elevated serum homocysteine Heparin-induced thrombocytopenia Other congenital or acquired thrombophilia Stroke (< 1 month) Elective arthroplasty Hip, pelvis, or leg fracture Acute spinal cord injury (< 1 month) Prophylaxis Regimen: Total Risk Factor Score Risk Level Prophylaxis Regimen 0-1 Low Early ambulation 2 Moderate Order ONE of the following: *Sequential Compression Device (SCD) *Heparin 5000 units SQ BID 3-4 Higher Order ONE of the following medications: *Heparin 5000 units SQ TID *Enoxaparin/Lovenox 40 mg SQ daily (WT < 150 kg, CrCl > 30 mL/min) *Enoxaparin/Lovenox 30 mg SQ daily (WT < 150 kg, CrCl > 10-29 mL/min) *Enoxaparin/Lovenox 30 mg SQ BID (WT < 150 kg, CrCl > 30 mL/min) AND/OR *Sequential Compression Device (SCD) 5 or more Highest Order ONE of the following medications: *Heparin 5000 units SQ TID (Preferred with Epidurals) *Enoxaparin/Lovenox 40 mg SQ daily (WT < 150 kg, CrCl > 30 mL/min) *Enoxaparin/Lovenox 30 mg SQ daily (WT < 150 kg, CrCl > 10-29 mL/min) *Enoxaparin/Lovenox 30 mg SQ BID (WT < 150 kg, CrCl > 30 mL/min) AND *Sequential Compression Device (SCD) Assessment and Plan - Assessment (1) Laceration of knee, left Code(s): S81.012A - Laceration without foreign body, left knee, initial encounter Status: Acute Plan: Large left knee laceration Falls at home - Pt is a 67 y/o female with CKD stage III, hypertension, dilated cardiomyopathy , scoliosis of lumbar spine, fibromyalgia, cervical radiculitis, spinal stenosis and GERD. - Yesterday evening pt fell at home sustaining a significant laceration to her left knee. - She was brought to the ED and was found to have a very large complex knee laceration which according to the ED documentation was at least 20 cm in length by 10 cm Y completely exposing the patella. - There was no fracture involving the knee on x-ray. - Orthopedic surgery, Dr. Saunders, saw the soft tissue injury at bedside and advise plastic surgery repair. Dr. Shah came into the ED and cleaned and surgically repaired the wound with surgical clips with Steri-strips applied around the edges. The wound was dressed and the pt was placed in a knee immobilizer. - Pt has Tramadol PRN ordered but is requesting a Lidocaine patch for the pain at the back of her knee. - Pt evaluation is ordered - Pt is insisting on going home today. She lives alone and has several walkers and a wheelchair at home but she is covered in bruises which appear to be a various stages of healing. She claims to not be falling at home but with this new injury and the fact that she is going to be required to use a knee immobilizer I do not think that the pt will do well at home by herself and is very high risk for readmission. - Pt is refusing SNF. - Await PT evaluation this morning - Pain control - Supportive care Cervical radiculopathy Spinal stenosis - Pt was recently admitted in November 2017 due to her cervical radiculopathy and was found to have severe spinal stenosis at both the C3-4 and C4-5 levels with marked cord compression. - Pt underwent C3-4, C4-5 anterior cervical discectomy with fusion by Dr. Garcia on 11/24/17 and was discharged to [facility] for rehab. Pt states that she was there for three weeks and then was discharged home and has been ambulating at home with the use of a walker CKD, stage 3 - On admission BUN 33, creatinine 1.24, estimated GFR 43. - Review of outpatient records patient has had chronic kidney disease stage III with BUN and averaging in the low 30s creatinine 1.1-1.4 and estimated GFR 34-59 - Patient had 1+ BLE pitting edema at admission and reports that she takes Lasix at home intermittently for LE swelling. - We will give one dose of IV Lasix 20 mg this morning - Await repeat BMP this morning. Hypertension - Pt is on Enalapril 20 mg BID and Carvedilol 6.25 mg BID - clonidine PRN Dilated cardiomyopathy - 2D Echocardiogram (11/23): - Estimated ejection fraction in the range of 50- 55%. - There is trace tricuspid valve regurgitation. - The estimated pulmonary arterial pressure is 31.7 mmHg. - Continue home enalapril 20 mg BID and home carvedilol 6.25 mg BID GERD - Continue home Protonix The exam, history, and the medical decision-making described in the above note were completed with the assistance of the mid-level provider. I reviewed and agree with the findings presented. I attest that I had a [id number] encounter with the patient on the same day, and personally performed and documented my assessment and findings in the medical record. pt refusing snf. large avulsion skin tears on lower ext's after fall. sutured by plastics. f/u Monday. hhc/pt. (2) HTN (hypertension) Code(s): I10 - Essential (primary) hypertension Status: Acute (3) Fall Code(s): W19.XXXA - Unspecified fall, initial encounter Status: Acute H&P: Quality - VTE Deep Vein Thrombosis/Pulmonary Embolism Present on Admission: No
[2018-01-28] MEDS ORDERED: Folic Acid 1 MG Tablet PO SCH (09:00)
[2018-01-28] MEDS ORDERED: Non-Formulary Drug (Glucosamine Sulfate [Glucosamine] 500 MG) PO SCH (09:00)
[2018-01-28] MEDS ORDERED: Lidocaine 5% Patch T-DERMAL SCH (09:00)
[2018-01-28 10:57] LABS: Calcium 8.2 mg/dL (8.5-10.1); Carbon Dioxide 22.8 meq/L (21.0-32.0); Potassium 4.3 meq/L (3.5-5.1)
[2018-01-28 11:46] VITALS: O2SAT 99
--- NOTE | 2018-01-28 11:46 | P.DCO ---
- Physical Therapy Order: Evaluate and treat - Home Health Nursing Order: Medical education, Wound care and dressing changes, Nursing assessment with vital signs Instructions: Wound to be checked by Dr. Shah on Monday and then further wound care recommendations per his orders after that - Case Management Consult No - Certification I have seen patient Genoveva Blanc on 01/28/18. My clinical findings support the need for the requested home health care services because: Limited mobility due to disease progression I certify that my clinical findings support that this patient is homebound because: Unsteady gait/balance
== END 2018-01-28 14:23 | disposition home health service (06) ==
LOC: NEPE 20:46 → NEDA 20:46 → NEPFCDU 01-28 01:43
PROVIDERS: ADMIT Hospitalist; ATTEND Hospitalist

== ENCOUNTER 2018-06-25 02:33 | Inpatient (IN) ==
[2018-06-25] MEDS ORDERED: Sodium Chlor 0.9% Inj 500 ML IV.SIG ONE (03:33)
--- NOTE | 2018-06-25 03:54 | ED ---
HPI General Chief complaint: Abdominal Pain Stated complaint: abd pain Time Seen by Provider: 06/25/18 02:50 Source: patient Limitations: no limitations History of Present Illness HPI narrative: The patient is a 67 year old female who presents to the [facility] emergency department with a history of abdominal pain that began yesterday and has been coming and going since onset. She reports that the pain began on the left lower quadrant of the abdomen and but it seems to be spreading throughout the lower pelvis since onset. She reports that she has been trying natural remedies including milk thistle and slippery elm without improvement. She reports that she is also started a clear liquid diet, as she does have a history of diverticulitis in the past, however these measures have not been helping including taking Tylenol for the pain. She reports having nausea without any vomiting. She reports that she has had more frequent bowel movements today, 3-4, small caliber movements with some mucus. She denies having any chest pain or chest pressure, however she does report having some shortness of breath when the pain peaks. She reports that the pain is sharp in character. She reports that moving makes the pain worse. She denies having any associated urinary sent she reports a recent medical history of being diagnosed with progressive anemia and is referred to Dr. reba lewis, a local pulp grinder for evaluation. She reports that she has an appointment scheduled soon. On review of systems otherwise, the patient denies having any known recent fevers, cough, congestion, neck pain, or neurologic symptoms. Related Data Home Medications Medication Instructions Recorded Confirmed acetaminophen 500 mg PO Q12H PRN 11/23/17 06/25/18 bupropion HCl 300 mg PO QAM 11/23/17 06/25/18 carvedilol 6.25 mg PO BID 11/23/17 06/25/18 cholecalciferol (vitamin D3) 5,000 unit PO DAILY 11/23/17 06/25/18 [Vitamin D3] enalapril maleate 20 mg PO BID 11/23/17 06/25/18 folic acid 0.4 mg PO DAILY 11/23/17 06/25/18 nitroglycerin [Nitrostat] 0.4 mg SUBLINGUAL Q5-15M PRN 11/23/17 06/25/18 pantoprazole [Protonix] 40 mg PO DAILY 11/23/17 06/25/18 Previous Rx's Medication Instructions Recorded tramadol 50 mg PO Q6H PRN #12 tab 01/28/18 Allergies Allergy/AdvReac Type Severity Reaction Status Date / Time diatrizoate meglumine Allergy Severe SHOCK Verified 06/25/18 02:36 gadobenic acid Allergy Severe SHOCK Verified 06/25/18 02:36 gadodiamide Allergy Severe SHOCK Verified 06/25/18 02:36 gadoteridol Allergy Severe SHOCK Verified 06/25/18 02:36 iodine Allergy Severe ANAPHLATIC Verified 06/25/18 02:36 SHOCK iodixanol Allergy Severe SHOCK Verified 06/25/18 02:36 iohexol Allergy Severe SHOCK Verified 06/25/18 02:36 potassium iodide Allergy Severe ANAPHLATIC Verified 06/25/18 02:36 SHOCK povidone-iodine Allergy Severe ANAPHLATIC Verified 06/25/18 02:36 SHOCK sodium iodide Allergy Severe ANAPHLATIC Verified 06/25/18 02:36 SHOCK sodium iodide Allergy Severe ANAPHLATIC Verified 06/25/18 02:36 SHOCK Dairy AdvReac Intermediate Constipatio Uncoded 06/25/18 02:36 n Review of Systems ROS: all other systems reviewed are negative PMFSH Medical History Medical History Brachial plexus injury, right (Acute) CRI (chronic renal insufficiency) (Acute) Cervical stenosis of spinal canal (Acute) Cervical vertebral fusion (Acute) Diverticulitis (Acute) HTN (hypertension) (Acute) Lumbar stenosis (Acute) Neuropathy (Acute) Right knee meniscal tear (Acute) Surgical History Surgical History H/O: (Acute) Hx of appendectomy (Acute) Social History Social History Substance History: No History of Abuse Second Hand Smoke Exposure: No Smoking Status: Never smoker Tobacco Type: Cigarettes How Often Do You Have a Drink Containing Alcohol: Never Recent Travel in [facility] within the Last 8 Weeks: No Recent Out of Country Travel within the Last 8 Weeks: No Immunization History Tetanus Immunization: <5 Years Exam Const General: cooperative and acute distress (Reportedly related to abdominal pain) mild Nutritional Appearance: well nourished Orientation: alert, awake and oriented x3 HENMT Head: normocephalic and atraumatic Nose: no nasal discharge and no epistaxis Mouth: moist mucous membranes Eyes Sclera: normal sclerae Pupils: PERRL Neck Neck: trachea midline and no JVD Resp Effort & Inspection: no use of accessory muscles Auscultation: clear to auscultation bilaterally Cardio Rate: regular rate Rhythm: regular rhythm Heart Sounds: no murmurs GI Inspection: non-distended Palpation: soft, no hepatosplenomegaly, no guarding, not rigid and tender in the epigastrum, in the LLQ and in the RLQ; not in the LUQ, not in the RUQ, not at McBurney's point, not suprapubicly, Calvo's sign negative and with no rebound tenderness Auscultation: normal bowel sounds Back/Spine/Pelvis Back: CVA tenderness (The patient reports having left-sided CVA tenderness on palpation.) Skin General: dry skin (warm) Neuro General: alert, awake, oriented x3 and other (Grossly nonfocal) Speech: speech normal Motor: no movement abnormalities noted Extrem General: normal to inspection, no calf tenderness, no clubbing, no cyanosis and edema (Trace pedal edema.) Laterality: bilaterally Psych Mood: congruent mood Affect: normal affect Judgment: judgment good Course Initial Documented Vital Signs Temperature 97.6 F 06/25/18 02:36 Pulse Rate 87 06/25/18 02:36 Respiratory Rate 19 06/25/18 02:36 Blood Pressure 233/106 H 06/25/18 02:36 Pulse Oximetry 99 06/25/18 02:36 Last Documented Vital Signs Temperature 98.5 F 06/25/18 16:00 Pulse Rate 88 06/25/18 16:00 Respiratory Rate 19 06/25/18 16:00 Blood Pressure 180/79 H 06/25/18 16:00 Pulse Oximetry 97 06/25/18 16:00 Medical Decision Making MDM Narrative Medical decision making narrative: During the course of the patient's emergency department visit, the patient's history, examination, and differential diagnosis were reviewed with the patient. The patient was placed on a school lunch monitor with oximetry and frequent blood pressure monitoring. The patient had IV access obtained and blood work sent for analysis. A diagnostic evaluation was started regarding the patient's abdominal pain. The patient initially was requesting only Tylenol for pain, however she reported previously that Tylenol was not helping for her pain. The patient reports that in the past when she has received morphine she had significant nausea, therefore she wishes to avoid this. She reports that she has tolerated tramadol in the past and is requesting this. The patient was initially given a dose of tramadol. The patient was started on normal saline of 500 mL bolus x1. The patient was given Zofran for nausea 4 mg IV. The patient continued to have persistent pain and was finally agreeable to administration of morphine. The patient was given morphine 2 mg IV along with an additional dose of Zofran 4 mg IV for nausea. The patient's diagnostic studies are remarkable for a white count of 26.1, hemoglobin 11.9, platelets of 460 with 85.1 neutrophils, 10.4 monocytes, given the patient's elevated white blood cell count blood cultures x2 were ordered. A lactic acid had already been sent for analysis. The patient was given Zosyn 3.375 g IV presuming a an abdominal source for the leukocytosis. PT PTT within normal limits, chemistries remarkable for chloride of 109, BUN 32, creatinine 1.09 in a patient with a history of similar renal 6, AST 13, troponin I less than 0.02, lipase within normal limits. Lactic acid was a 2 initially a 2.7 and came down to a 2.2 after IV hydration. The patient was gently hydrated due to her history of congestive heart failure. The patient's chest x-ray revealed no acute cardiopulmonary process, chronic deformity of the right humeral head with associated degenerative changes. CT scan of the abdomen and pelvis showed diverticular disease with evidence of diverticulitis, small amount of pneumoperitoneum in the upper abdomen which may be related to the aforementioned diverticulitis. The patient's case including history, pertinent physical examination findings, and laboratory studies were discussed with Dr. Plasencia (5:59 AM), the general surgeon, and Dr. Waldrop (6:15 AM[facility] It was agreed that the [facility] would [facility] The patient's results were discussed with the patient, including the plan of care. I explained that further testing and/ or monitoring is indicated based on the patient's history, examination, and/ or laboratory findings. Therefore, I recommended admission for additional evaluation. The patient expressed understanding and was agreeable with this plan. The patient was admitted to the hospital in guarded condition and sent to a [facility] Medical Screen Exam Complete: Yes Emergency Medical Condition: Yes Differential Diagnosis Differential Diagnosis: Diverticulitis, versus perforated bowel, versus pyelonephritis, versus kidney stone, versus ischemic bowel Medical Records Medical records reviewed: Yes I reviewed the patient's medical records. Lab Data Lab results reviewed: Yes I reviewed the patient's lab results. Result diagrams: 06/25/18 03:40 06/25/18 03:40 Lab Results 06/25/18 06/25/18 06/25/18 Range/Units 03:40 03:40 03:40 WBC 26.1 H (4.0-11.0) th/mm3 RBC 4.83 (4.00-5.30) mil/mm3 Hgb 11.9 (11.6-15.3) gm/dL Hct 37.6 (35.0-46.0) % MCV 78.0 L (80.0-100.0) fL MCH 24.6 L (27.0-34.0) pg MCHC 31.6 L (32.0-36.0) % RDW 19.0 H (11.6-17.2) % Plt Count 460 H (150-450) th/mm3 MPV 9.0 (7.0-11.0) fL Prelim Diff (Auto) Slide review pending Neut % (Auto) 85.1 H (16.0-70.0) % Lymph % (Auto) 4.4 L (9.0-44.0) % Greene % (Auto) 10.4 H (0.0-8.0) % Eos % (Auto) 0.0 (0.0-4.0) % Baso % (Auto) 0.1 (0.0-2.0) % Neut # (Auto) 22.2 H (1.8-7.7) th/mm3 Lymph # (Auto) 1.1 (1.0-4.8) th/mm3 Greene # (Auto) 2.7 H (0.0-0.9) th/mm3 Eos # (Auto) 0.0 (0.0-0.4) th/mm3 Baso # (Auto) 0.0 (0.0-0.2) th/mm3 WBC Differential Manual diff final Seg Neuts % (Manual) 82 H (16-70) % Band Neuts % (Manual) 1 (0-6) % Lymphocytes % (Manual) 6 L (9-44) % Monocytes % (Manual) 11 H (0-8) % Abs Neuts (Manual) 21.7 H (1.8-7.7) th/mm3 Differential Comment . Platelet Estimate Normal (Normal) Platelet Morphology Normal (Normal) PT 10.7 (9.8-11.6) sec INR 1.1 Ratio APTT 24.5 (23.4-31.7) sec Sodium 141 (136-145) meq/L Potassium 4.2 (3.5-5.1) meq/L Chloride 109 H (98-107) meq/L Carbon Dioxide 23.6 (21.0-32.0) meq/L Anion Gap 8 (5-15) meq/L BUN 32 H (7-18) mg/dL Creatinine 1.09 H (0.50-1.00) mg/dL Estimated GFR 50 L (>89) mL/min Random Glucose 126 H (74-106) mg/dL Lactic Acid (0.4-2.0) mmol/L Calcium 8.6 (8.5-10.1) mg/dL Magnesium 2.1 (1.5-2.5) mg/dL Total Bilirubin 0.6 (0.2-1.0) mg/dL AST 13 L (15-37) U/L ALT 21 (10-53) U/L Alkaline Phosphatase 92 (45-117) U/L Total Creatine Kinase 38 (26-192) U/L Troponin I Less than 0.02 L (0.02-0.05) ng/mL Total Protein 8.5 H (6.4-8.2) g/dL Albumin 3.9 (3.4-5.0) g/dL Lipase 146 (73-393) U/L Urine Color (Yellw/Straw) Urine Clarity (Clear) Urine pH (5.0-8.5) Ur Specific Irwin (1.002-1.035) Urine Protein (Neg-Trace) mg/dL Urine Glucose (UA) (Negative) mg/dL Urine Ketones (Negative) mg/dL Urine Occult Blood (Negative) Urine Nitrate (Negative) Urine Bilirubin (Negative) Urine Urobilinogen (Less than 2) mg/dL Ur Leukocyte Esterase (Negative) Urine RBC (0-3) /hpf Urine WBC (0-5) /hpf Ur Squamous Epith Cells (0-5) /hpf Urine Bacteria (None) /hpf Micro UA Comment Ur Microscopic Review Urine Culture Comments 06/25/18 06/25/18 06/25/18 Range/Units 03:40 06:00 08:35 WBC (4.0-11.0) th/mm3 RBC (4.00-5.30) mil/mm3 Hgb (11.6-15.3) gm/dL Hct (35.0-46.0) % MCV (80.0-100.0) fL MCH (27.0-34.0) pg MCHC (32.0-36.0) % RDW (11.6-17.2) % Plt Count (150-450) th/mm3 MPV (7.0-11.0) fL Prelim Diff (Auto) Neut % (Auto) (16.0-70.0) % Lymph % (Auto) (9.0-44.0) % Greene % (Auto) (0.0-8.0) % Eos % (Auto) (0.0-4.0) % Baso % (Auto) (0.0-2.0) % Neut # (Auto) (1.8-7.7) th/mm3 Lymph # (Auto) (1.0-4.8) th/mm3 Greene # (Auto) (0.0-0.9) th/mm3 Eos # (Auto) (0.0-0.4) th/mm3 Baso # (Auto) (0.0-0.2) th/mm3 WBC Differential Seg Neuts % (Manual) (16-70) % Band Neuts % (Manual) (0-6) % Lymphocytes % (Manual) (9-44) % Monocytes % (Manual) (0-8) % Abs Neuts (Manual) (1.8-7.7) th/mm3 Differential Comment Platelet Estimate (Normal) Platelet Morphology (Normal) PT (9.8-11.6) sec INR Ratio APTT (23.4-31.7) sec Sodium (136-145) meq/L Potassium (3.5-5.1) meq/L Chloride (98-107) meq/L Carbon Dioxide (21.0-32.0) meq/L Anion Gap (5-15) meq/L BUN (7-18) mg/dL Creatinine (0.50-1.00) mg/dL Estimated GFR (>89) mL/min Random Glucose (74-106) mg/dL Lactic Acid 2.7 H 2.2 H (0.4-2.0) mmol/L Calcium (8.5-10.1) mg/dL Magnesium (1.5-2.5) mg/dL Total Bilirubin (0.2-1.0) mg/dL AST (15-37) U/L ALT (10-53) U/L Alkaline Phosphatase (45-117) U/L Total Creatine Kinase (26-192) U/L Troponin I (0.02-0.05) ng/mL Total Protein (6.4-8.2) g/dL Albumin (3.4-5.0) g/dL Lipase (73-393) U/L Urine Color Yellow (Yellw/Straw) Urine Clarity Clear (Clear) Urine pH 5.0 (5.0-8.5) Ur Specific Irwin 1.017 (1.002-1.035) Urine Protein Negative (Neg-Trace) mg/dL Urine Glucose (UA) Negative (Negative) mg/dL Urine Ketones Negative (Negative) mg/dL Urine Occult Blood Negative (Negative) Urine Nitrate Negative (Negative) Urine Bilirubin Negative (Negative) Urine Urobilinogen Less than 2 (Less than 2) mg/dL Ur Leukocyte Esterase Moderate H (Negative) Urine RBC 2 (0-3) /hpf Urine WBC 44 H (0-5) /hpf Ur Squamous Epith Cells <1 (0-5) /hpf Urine Bacteria Occasional H (None) /hpf Micro UA Comment Culture indicated Ur Microscopic Review Not Reportable Urine Culture Comments Culture indicated Imaging Data Radiologist's impression: Chest X-Ray 06/25/18 03:33 CONCLUSION: 1. No acute cardiopulmonary process. 2. Chronic deformity of the right humeral head with associated degenerative changes. Abdomen/Pelvis CT 06/25/18 03:35 CONCLUSION: 1. Diverticular disease of the descending and sigmoid portions of the colon, most severe in the region of the sigmoid with an associated diverticulitis at the junction of the descending and sigmoid. 2. Small amount of pneumoperitoneum in the upper abdomen may be related to the aforementioned diverticulitis. 3. Atrophic changes in the left kidney probably related to chronic vascular compromise. 2 to 3 mm nonobstructing stone is seen in the lower pole collecting system of the same kidney. 4. Small umbilical and right anterior abdominal hernias only containing fat. There is some stranding of the fat within both hernias which could represent some fatty infarction, however. ECG Data Attestation: I personally reviewed and interpreted this ECG as follows: Interpretation: The patient had an EKG done on arrival. The patient's EKG reveals a sinus rhythm heart rate of 73, QRS duration 86 ms, QTC [address] segment elevation. T waves are inverted in V1, V2. Discharge Plan Discharge Disposition Patient Disposition: ED Admit(ED Internal Use Only) Discharge Order Discharge Orders: ED Use Only Admit Order (Routine); Ordered 06/25/18 Ordered By: Romi Castaneda Discharge Details Diagnosis: Diverticulitis, Pneumoperitoneum Physicians Team ED Provider: Romi Castaneda Primary Care Provider: Iesha Mcgovern Attending Provider: Og Chapin Other Providers: Mendez Plasencia Status ED Status: Left Department Discharge Information Discharge Date/Time: 06/25/18 08:49
[2018-06-25 04:01] LABS: Baso % (Auto) 0.1 % (0.0-2.0); Hematocrit 37.6 % (35.0-46.0); Hemoglobin 11.9 gm/dL (11.6-15.3); Lymph # (Auto) 1.1 th/mm3 (1.0-4.8); Lymph % (Auto) 4.4 % (9.0-44.0); Mean Corpuscular HGB Conc 31.6 % (32.0-36.0); Mean Corpuscular Hemoglobin 24.6 pg (27.0-34.0); Mono # (Auto) 2.7 th/mm3 (0.0-0.9); Mono % (Auto) 10.4 % (0.0-8.0); Neut # (Auto) 22.2 th/mm3 (1.8-7.7); Neut % (Auto) 85.1 % (16.0-70.0); Platelet Count 460 th/mm3 (150-450); Red Blood Count 4.83 mil/mm3 (4.00-5.30); White Blood Count 26.1 th/mm3 (4.0-11.0)
[2018-06-25 04:09] LABS: Activated Partial Thrombo Time 24.5 sec (23.4-31.7); INR 1.1 Ratio; Prothrombin Time 10.7 sec (9.8-11.6)
[2018-06-25 04:12] LABS: Alanine Aminotransferase 21 U/L (10-53); Albumin 3.9 g/dL (3.4-5.0); Anion Gap 8 meq/L (5-15); Aspartate Aminotransferase 13 U/L (15-37); Blood Urea Nitrogen 32 mg/dL (7-18); Calcium 8.6 mg/dL (8.5-10.1); Carbon Dioxide 23.6 meq/L (21.0-32.0); Chloride 109 meq/L (98-107); Glomerular Filtration Rate 50 mL/min (>89); Glucose,Random 126 mg/dL (74-106); Lipase 146 U/L (73-393); Magnesium 2.1 mg/dL (1.5-2.5); Potassium 4.2 meq/L (3.5-5.1); Sodium 141 meq/L (136-145)
[2018-06-25 04:17] LABS: Alkaline Phosphatase 92 U/L (45-117); Total Protein 8.5 g/dL (6.4-8.2)
[2018-06-25 04:18] LABS: Creatine Kinase 38 U/L (26-192)
--- NOTE | 2018-06-25 04:58 | XR ---
EXAM DATE: 06/25/2018 4:23 AM EST AGE/SEX: 67 years / Female INDICATIONS: Free air. CLINICAL DATA: This is the patient's initial encounter. Patient reports that signs and symptoms have been present for 1 day and indicates a pain score of 0/10. MEDICAL/SURGICAL HISTORY: Hypertension. Fusion, cervical. COMPARISON: [facility] [place], CHEST 1V SINGLE AP, 01/27/2018. . FINDINGS: A single AP view of the chest demonstrates the lungs to be symmetrically aerated without evidence of mass, infiltrate or effusion. The cardiomediastinal contours are unremarkable. Degenerative osteoart hritic changes predominantly in the right shoulder with deformity of the humeral head. Anterior fixat ion of the mid and lower cervical spine. Osseous structures are otherwise intact. CONCLUSION: 1. No acute cardiopulmonary process. 2. Chronic deformity of the right humeral head with associated degenerative changes. Electronically signed by: Keith Escobar MD Board Certified Radiologist 06/25/2018 4:57 AM EST
[2018-06-25 05:27] LABS: Lymphocytes 6 % (9-44); Monocytes 11 % (0-8)
--- NOTE | 2018-06-25 05:27 | CT ---
EXAM DATE: 06/25/2018 4:02 AM EST AGE/SEX: 67 years / Female INDICATIONS: Left lower quadrant pain. CLINICAL DATA: This is the patient's initial encounter. Patient reports that signs and symptoms have been present for 1 day and indicates a pain score of 10/10. MEDICAL/SURGICAL HISTORY: Hypertension. Diverticulitis. Chronic renal insufficiency. Fusion, cervical. Appendectomy. section. RADIATION DOSE: 12.32 CTDI (mGy) COMPARISON: [facility], CHEST 1V SINGLE AP, 06/25/2018. . TECHNIQUE: Multiple contiguous axial images were obtained through the abdomen. Images were obtained using multiple row detector helical technique. Using automated exposure control and adjustment of the mA and/or kV according to patient size, radiation dose was kept as low as reasonably achievable to o btain optimal diagnostic quality images. DICOM format image data is available electronically for rev iew and comparison. FINDINGS: Lower Lungs: Minimal atelectatic changes in the right base. Lung bases are otherwise clear. There is some mild pericardial thickening. Liver: The liver has a homogeneous density without space-occupying lesion. There is no dilation of th e biliary tree. Spleen: Homogeneous density without enlargement. Pancreas: Unremarkable without mass or calcification. Kidneys: Left kidney is atrophic measuring approximately 4 1/2 to 5 cm probably representing some de gree of vascular compromise. Punctate, nonobstructing 2 to 3 mm stone in the lower pole collecting sy stem of the left kidney. Right kidney is radiographically normal.. Adrenal Glands: Unremarkable. Aorta: The aorta and proximal iliac vessels are grossly unremarkable without aneurysmal dilation. Bowel/Mesentery: Diverticular disease of the descending and sigmoid portions of the colon, most luis re in the region of the sigmoid. Pericolonic stranding at the junction of the descending and sigmoid characteristic of acute diverticulitis. No associated abscess. There are a few dots of free air withi n the upper abdomen, however. Abdominal Wall: Small umbilical and right periumbilical hernias measuring 1.3 and 1.9 cm, respective ly and only containing fat. There is some stranding of the fat within the hernias which could represe nt some fatty infarction. Retroperitoneum: No evidence of adenopathy in the retrocrural, para-aortic, or deep pelvic regions. Bladder: Contours are smooth. Reproductive Organs: No abnormal masses or calcifications seen. Inguinal: The inguinal region is unremarkable without evidence of adenopathy. Bony Structures: Some degenerative spurring of the lower lumbar spine. Post Contrast: No abnormal areas of enhancement seen. CONCLUSION: 1. Diverticular disease of the descending and sigmoid portions of the colon, most severe in the nik on of the sigmoid with an associated diverticulitis at the junction of the descending and sigmoid. 2. Small amount of pneumoperitoneum in the upper abdomen may be related to the aforementioned divert iculitis. 3. Atrophic changes in the left kidney probably related to chronic vascular compromise. 2 to 3 mm no nobstructing stone is seen in the lower pole collecting system of the same kidney. 4. Small umbilical and right anterior abdominal hernias only containing fat. There is some stranding of the fat within both hernias which could represent some fatty infarction, however. Electronically signed by: Keith Escobar MD Board Certified Radiologist 06/25/2018 5:26 AM EST
[2018-06-25 05:28] LABS: Platelet Estimate Normal (Normal); Platelet Morphology Normal (Normal)
[2018-06-25] MEDS ORDERED: Piperacil/Tazo 3.375 GM Premix 3.375 GM/50 ML PIGGYBACK IV.SIG ONE (05:36)
[2018-06-25] MEDS ORDERED: Sod Chloride 0.9% Inj 1,000 ML IV.SIG ONE (05:37)
[2018-06-25] MEDS ORDERED: Morphine Sulfate Inj 2 MG/ML Vial IV.PUSH ONE (05:39)
--- NOTE | 2018-06-25 07:24 | P.HPIM ---
History of Present Illness Primary Care Physician: Iesha Mcgovern MD Chief Complaint: abd pain History of Present Illness: Ms. Blanc is a 67 y/o female with CKD stage III, hypertension, dilated cardiomyopathy, scoliosis of lumbar spine, fibromyalgia, cervical radiculitis, spinal stenosis and GERD. Patient presents to the [facility] emergency department with a history of abdominal pain that began yesterday and has been coming and going since onset. She reports that the pain began on the left lower quadrant of the abdomen and but it seems to be spreading throughout the lower pelvis since onset. She reports that she has been trying natural remedies including milk thistle and slippery elm without improvement. She reports that she is also started a clear liquid diet, as she does have a history of diverticulitis in the past, however these measures have not been helping including taking Tylenol for the pain. She reports having nausea without any vomiting. She reports that she has had more frequent bowel movements today, 3-4, small caliber movements with some mucus. She denies having any chest pain or chest pressure, however she does report having some shortness of breath when the pain peaks. She reports that the pain is sharp in character. She reports that moving makes the pain worse. She denies having any associated urinary sent she reports a recent medical history of being diagnosed with progressive anemia and is referred to a local application security architect for evaluation. She reports that she has an appointment scheduled soon. On review of systems otherwise, the patient denies having any known recent fevers, cough, congestion, neck pain, or neurologic symptoms. PMH: chronic kidney disease stage III hypertension dilated cardiomyopathy 2D echocardiogram 02/24/2016 revealed ejection fraction of 65% normal chamber dimensions, normal left ventricular wall thickness, normal wall motion, mild tricuspid regurgitation scoliosis of lumbar spine fibromyalgia cervical radiculitis spinal stenosis GERD PSxH: C3-4, C4-5 anterior cervical discectomy with fusion by Dr. Garcia (11/24) Appendectomy Cervical vertebral fusion Right knee C section coloscopy EGD Lumbar paravertebral facelift tubal ligation FMH: colon cancer prostate cancer HTN renal disease Social Hx: lives alone Pt uses a walker at home to assist with ambulation. She also has a wheelchair at home. denies ETOH use former cigarette smoker quit 20 plus years ago denies illicit drug use Inpatient Certification Inpatient Certification: I certify that the inpatient services were ordered in accordance with Medicare regulations governing the order. This includes certification that hospital inpatient services are reasonable and necessary and in the case of services not specified as inpatient-only under 42 CFR 419.22(n), that they are appropriately provided as inpatient services in accordance to with the 2-midnight benchmark under 43 CFR 412.3(e) Medications and Allergies Allergies Allergy/AdvReac Type Severity Reaction Status Date / Time diatrizoate meglumine Allergy Severe SHOCK Verified 06/25/18 02:36 gadobenic acid Allergy Severe SHOCK Verified 06/25/18 02:36 gadodiamide Allergy Severe SHOCK Verified 06/25/18 02:36 gadoteridol Allergy Severe SHOCK Verified 06/25/18 02:36 iodine Allergy Severe ANAPHLATIC Verified 06/25/18 02:36 SHOCK iodixanol Allergy Severe SHOCK Verified 06/25/18 02:36 iohexol Allergy Severe SHOCK Verified 06/25/18 02:36 potassium iodide Allergy Severe ANAPHLATIC Verified 06/25/18 02:36 SHOCK povidone-iodine Allergy Severe ANAPHLATIC Verified 06/25/18 02:36 SHOCK sodium iodide Allergy Severe ANAPHLATIC Verified 06/25/18 02:36 SHOCK sodium iodide Allergy Severe ANAPHLATIC Verified 06/25/18 02:36 SHOCK Dairy AdvReac Intermediate Constipatio Uncoded 06/25/18 02:36 n Home Medications Medication Instructions Recorded Confirmed Type acetaminophen 500 mg PO Q12H PRN 11/23/17 06/25/18 History bupropion HCl 300 mg PO QAM 11/23/17 06/25/18 History carvedilol 6.25 mg PO BID 11/23/17 06/25/18 History cholecalciferol (vitamin D3) 5,000 unit PO DAILY 11/23/17 06/25/18 History [Vitamin D3] enalapril maleate 20 mg PO BID 11/23/17 06/25/18 History folic acid 0.4 mg PO DAILY 11/23/17 06/25/18 History nitroglycerin [Nitrostat] 0.4 mg SUBLINGUAL Q5-15M PRN 11/23/17 06/25/18 History pantoprazole [Protonix] 40 mg PO DAILY 11/23/17 06/25/18 History Active Medications: Active Medications Sodium Chloride (Ns Flush) 2 ml IV.FLUSH PRN PRN PRN Reason: FLUSH AFTER USING IV ACCESS Last Admin: 06/25/18 04:29 Dose: 2 ml Physical Exam Vital signs: Last Vital Signs Temp 97.6 F 06/25/18 02:36 Pulse 76 06/25/18 06:25 Resp 16 06/25/18 06:25 BP 192/85 H 06/25/18 06:25 Pulse Ox 100 06/25/18 06:25 Narrative: GENERAL: This is a well-nourished, well-developed patient, in no apparent distress. CARDIOVASCULAR: Regular rate and rhythm RESPIRATORY: Clear to auscultation. Breath sounds equal bilaterally. GASTROINTESTINAL: MUSCULOSKELETAL: Extremities without clubbing, cyanosis, or edema. NEURO: Alert & Oriented . Moves all ext x4 Results Labs CBC & Chem 7: 06/25/18 03:40 06/25/18 03:40 Caprini VTE Risk Assessment Caprini VTE Risk Assessment: No/Low Risk (score <= 1) Caprini Risk Assessment Model: Point Value = 1 Point Value = 2 Point Value = 3 Point Value = 5 Age 41-60 Minor surgery BMI > 25 kg/m2 Swollen legs Varicose veins or History of unexplained or recurrent spontaneous Oral contraceptives or hormone replacement Sepsis (< 1 month) Serious lung disease, including pneumonia (< 1 month) Abnormal pulmonary function Acute myocardial infarction Congestive heart failure (< 1 month) History of inflammatory bowel disease Medical patient at bed rest Age 61-74 Arthroscopic surgery Major open surgery (> 45 min) Laparoscopic surgery (> 45 min) Malignancy Confined to bed (> 72 hours) Immobilizing plaster cast Central venous access Age >= 75 History of VTE Family history of VTE Factor V Leiden Prothrombin [id number] Lupus anticoagulant Anticardiolipin antibodies Elevated serum homocysteine Heparin-induced thrombocytopenia Other congenital or acquired thrombophilia Stroke (< 1 month) Elective arthroplasty Hip, pelvis, or leg fracture Acute spinal cord injury (< 1 month) Prophylaxis Regimen: Total Risk Factor Score Risk Level Prophylaxis Regimen 0-1 Low Early ambulation 2 Moderate Order ONE of the following: *Sequential Compression Device (SCD) *Heparin 5000 units SQ BID 3-4 Higher Order ONE of the following medications: *Heparin 5000 units SQ TID *Enoxaparin/Lovenox 40 mg SQ daily (WT < 150 kg, CrCl > 30 mL/min) *Enoxaparin/Lovenox 30 mg SQ daily (WT < 150 kg, CrCl > 10-29 mL/min) *Enoxaparin/Lovenox 30 mg SQ BID (WT < 150 kg, CrCl > 30 mL/min) AND/OR *Sequential Compression Device (SCD) 5 or more Highest Order ONE of the following medications: *Heparin 5000 units SQ TID (Preferred with Epidurals) *Enoxaparin/Lovenox 40 mg SQ daily (WT < 150 kg, CrCl > 30 mL/min) *Enoxaparin/Lovenox 30 mg SQ daily (WT < 150 kg, CrCl > 10-29 mL/min) *Enoxaparin/Lovenox 30 mg SQ BID (WT < 150 kg, CrCl > 30 mL/min) AND *Sequential Compression Device (SCD) Assessment and Plan Plan Ms. Blanc is a 67 y/o female with CKD stage III, hypertension, dilated cardiomyopathy, scoliosis of lumbar spine, fibromyalgia, cervical radiculitis, spinal stenosis and GERD. Patient presents to the [facility] emergency department with a history of abdominal pain that began yesterday and has been coming and going since onset. She reports that the pain began on the left lower quadrant of the abdomen and but it seems to be spreading throughout the lower pelvis since onset. Diverticular disease with pneumoperitoneum WBC 26.1, LA 2.7 Chest X-Ray 06/25/18 1. No acute cardiopulmonary process. 2. Chronic deformity of the right humeral head with associated degenerative changes. Abdomen/Pelvis CT 06/25/18 1. Diverticular disease of the descending and sigmoid portions of the colon , most severe in the region of the sigmoid with an associated diverticulitis at the junction of the descending and sigmoid. 2. Small amount of pneumoperitoneum in the upper abdomen may be related to the aforementioned diverticulitis. 3. Atrophic changes in the left kidney probably related to chronic vascular compromise. 2 to 3 mm nonobstructing stone is seen in the lower pole collecting system of the same kidney. 4. Small umbilical and right anterior abdominal hernias only containing fat. There is some stranding of the fat within both hernias which could represent some fatty infarction, however. NPO IVF Zosyn started in the ER, will continue Zofran as needed for N/V Ultram and Dilaudid as needed for pain ER provider spoke to general surgery Dr. Plasencia Consult to general surgery CKD, stage 3 - On admission BUN 32, creatinine 1.09, estimated GFR 50. - Review of outpatient records patient has had chronic kidney disease stage III with BUN and averaging in the low 30s creatinine 1.1-1.4 and estimated GFR 34-59 - monitor renal function Hypertension - Pt is on Enalapril 20 mg BID and Carvedilol 6.25 mg BID - clonidine PRN, Vasotec as needed Dilated cardiomyopathy - 2D Echocardiogram (11/2017): - Estimated ejection fraction in the range of 50- 55%. - There is trace tricuspid valve regurgitation. - The estimated pulmonary arterial pressure is 31.7 mmHg. - Continue home enalapril 20 mg BID and home carvedilol 6.25 mg BID GERD - Continue home Protonix DVT prophylaxis with SCDs
[2018-06-25] MEDS ORDERED: HYDROmorphone PF Inj 0.5 MG/0.5 ML Syringe IV.PUSH PRN (07:33)
[2018-06-25] MEDS: Carvedilol 6.25 MG Tablet PO SCH ×2 (08:20→21:39)
[2018-06-25] MEDS: Sodium Chloride 0.45 % Inj 1,000 ML IV.CONT SCH ×2 (08:21→21:45)
[2018-06-25] MEDS: Pantoprazole Inj 40 MG Vial IV.PUSH SCH (08:21)
[2018-06-25 08:56] LABS: Bacteria,Urine Occasional /hpf; Bilirubin,Urine Negative (Negative); Clarity,Urine Clear (Clear); Color,Urine Yellow (Yellw/Straw); Glucose,Urine (UA) Negative (Negative); Leukocyte Esterase,Urine Moderate (Negative); Nitrite,Urine Negative (Negative); Specific Gravity,Urine 1.017 (1.002-1.035); Squamous Epithelial Cell,Urine <1 /hpf (0-5)
[2018-06-25] MEDS: HYDROmorphone PF Inj 0.5 MG/0.5 ML Syringe IV.PUSH PRN ×3 (12:21→21:39)
[2018-06-25] MEDS: Piperacil/Tazo 3.375 GM Premix 3.375 GM/50 ML PIGGYBACK IV.SIG SCH ×2 (12:56→18:02)
--- NOTE | 2018-06-25 15:20 | ECG ---
Date Performed: 06/25/2018 Time Performed: 02:55:44 PTAGE: 67 years EKG: Sinus rhythm POSSIBLE LEFT ATRIAL ENLARGEMENT BORDERLINE ECG Since PREVIOUS TRACING , no significant change noted PREVIOUS TRACIN11/24/2017 04.43 DOCTOR: Terry Mata Interpretating Date/Time 06/25/2018 15:18:40
--- NOTE | 2018-06-25 15:37 | P.CONGS ---
[facility] Gen Surgery Consult Note Consult date: 06/25/18 Narrative: 67 yo F with h/o diverticulitis, HTN, dilated cardiomyopathy presented overnight with severe LLQ abdominal pain and found to have perforated diverticulitis. Her pain has been present for 4 days. She tried some herbal remedies which gave her some relief. She has had associated nausea and vomiting and bloating. She had some mucousy bowel movements. T-max in the hospital was 100.7. White blood count 26,[address] of the abdomen pelvis shows diverticulitis with small amount of surrounding inflammation and small amount of generalized pneumoperitoneum. She says that she has had diverticulitis about once per year and has required oral antibiotics but has never had anything this severe. She ambulates with a walker and has frequent falls. She has significant scarring on both knees. Review of Systems All other systems reviewed negative except as stated in [facility] - History History Provided By: Patient - Medical History Medical History: Medical History (Last Reviewed 06/25/18 @ 03:52 by Romi Castaneda MD) Diverticulitis Brachial plexus injury, right CRI (chronic renal insufficiency) Cervical stenosis of spinal canal Cervical vertebral fusion HTN (hypertension) Lumbar stenosis Neuropathy Right knee meniscal tear - Surgical History Surgical History: Surgical History (Last Reviewed 06/25/18 @ 03:52 by Romi Castaneda MD) H/O: Hx of appendectomy - Tobacco History Second Hand Smoke Exposure: No Smoking Status: Never smoker Tobacco Type: Cigarettes - Alcohol History How Often Do You Have a Drink Containing Alcohol: Never - Substance Use History Substance History: No History of Abuse - Travel History Recent Travel in the [place] Within the Last 8 Weeks: No Recent Travel Out of the Country Within the Last 8 Weeks: No - Immunization History Tetanus Immunization: <5 Years Hx Influenza Vaccine This Season: Yes Medications and Allergies Active Medications: Active Medications Acetaminophen (Tylenol) 650 mg PO Q4H PRN PRN Reason: Temp > 100.4 Al Hydroxide/Mg Hydroxide (Milk Of Coleman Libassam) 30 ml PO Q12H PRN PRN Reason: Mild Constipation Bupropion HCl (Wellbutrin Sr) 150 mg PO BID [facility] Carvedilol (Coreg) 6.25 mg PO BID [facility] Last Admin: 06/25/18 08:20 Dose: 6.25 mg Clonidine HCl (Catapres) 0.1 mg PO Q6H PRN PRN Reason: SBP>180, DBP>95 Last Admin: 06/25/18 08:21 Dose: 0.1 mg Enalapril Maleate (Vasotec) 20 mg PO BID [facility] Last Admin: 06/25/18 08:21 Dose: 20 mg Enalaprilat (Vasotec Inj) 1.25 mg IV.PUSH Q6H PRN PRN Reason: SBP>160, DBP>90 Hydromorphone HCl (Dilaudid Pf Inj) 0.5 mg IV.PUSH Q4H PRN PRN Reason: pain 6-10 or NPO Last Admin: 06/25/18 12:21 Dose: 0.5 mg Sodium Chloride (1/2 Normal Saline Inj) 1,000 mls @ 75 mls/hr IV.CONT .[id number] [facility] Last Admin: 06/25/18 08:21 Dose: 75 mls/hr Piperacillin/Tazobactam/Dextrose (Zosyn 3.375 Gm Premix) 3.375 gm in 50 mls @ 100 mls/hr IV.SIG Q6H [facility] Last Admin: 06/25/18 12:56 Dose: 100 mls/hr Ondansetron HCl (Zofran Inj) 4 mg IV.PUSH Q6H PRN PRN Reason: NAUSEA OR VOMITING Pantoprazole Sodium (Protonix Inj) 40 mg IV.PUSH Q24H [facility] Last Admin: 06/25/18 08:21 Dose: 40 mg Senna/Docusate Sodium (Isabel-Colace) 1 tab PO BID [facility] Sodium Chloride (Ns Flush) 2 ml IV.FLUSH BID [facility] Last Admin: 06/25/18 08:27 Dose: 2 ml Sodium Chloride (Ns Flush) 2 ml IV.FLUSH UNSCH PRN PRN Reason: FLUSH AFTER USING IV ACCESS Tramadol HCl (Ultram) 50 mg PO Q6H PRN PRN Reason: pain 1-5 Allergies Allergy/AdvReac Type Severity Reaction Status Date / Time diatrizoate meglumine Allergy Severe SHOCK Verified 06/25/18 02:36 gadobenic acid Allergy Severe SHOCK Verified 06/25/18 02:36 gadodiamide Allergy Severe SHOCK Verified 06/25/18 02:36 gadoteridol Allergy Severe SHOCK Verified 06/25/18 02:36 iodine Allergy Severe ANAPHLATIC Verified 06/25/18 02:36 SHOCK iodixanol Allergy Severe SHOCK Verified 06/25/18 02:36 iohexol Allergy Severe SHOCK Verified 06/25/18 02:36 potassium iodide Allergy Severe ANAPHLATIC Verified 06/25/18 02:36 SHOCK povidone-iodine Allergy Severe ANAPHLATIC Verified 06/25/18 02:36 SHOCK sodium iodide Allergy Severe ANAPHLATIC Verified 06/25/18 02:36 SHOCK sodium iodide Allergy Severe ANAPHLATIC Verified 06/25/18 02:36 SHOCK Dairy AdvReac Intermediate Constipatio Uncoded 06/25/18 02:36 n Home Medications Medication Instructions Recorded Confirmed Type acetaminophen 500 mg PO Q12H PRN 11/23/17 06/25/18 History bupropion HCl 300 mg PO QAM 11/23/17 06/25/18 History carvedilol 6.25 mg PO BID 11/23/17 06/25/18 History cholecalciferol (vitamin D3) 5,000 unit PO DAILY 11/23/17 06/25/18 History [Vitamin D3] enalapril maleate 20 mg PO BID 11/23/17 06/25/18 History folic acid 0.4 mg PO DAILY 11/23/17 06/25/18 History nitroglycerin [Nitrostat] 0.4 mg SUBLINGUAL Q5-15M PRN 11/23/17 06/25/18 History pantoprazole [Protonix] 40 mg PO DAILY 11/23/17 06/25/18 History Exam Vital signs: Vital Signs 06/25/18 02:36 06/25/18 02:50 06/25/18 04:55 Temperature 97.6 F Pulse Rate 87 77 89 Respiratory Rate 19 18 16 Blood Pressure 233/106 H 220/98 H 150/85 H Pulse Oximetry 99 95 06/25/18 05:55 06/25/18 06:25 06/25/18 07:24 Temperature Pulse Rate 75 76 78 Respiratory Rate 18 16 15 Blood Pressure 207/98 H 192/85 H 199/91 H Pulse Oximetry 99 100 98 06/25/18 08:27 06/25/18 08:38 06/25/18 12:00 Temperature 100.7 F H Pulse Rate 88 76 85 Respiratory Rate 18 18 17 Blood Pressure 196/91 H 174/77 H 169/74 H Pulse Oximetry 98 98 96 02/18/19 14:10 Temperature Pulse Rate Respiratory Rate 16 Blood Pressure Pulse Oximetry Intake & Output 06/24/18 06/25/18 06/25/18 18:59 06:59 18:59 Intake Total 550 / 550 1000 / 1000 Balance 550 / 550 1000 / 1000 Weight 72.575 kg 72.57 kg Intake: IV 550 / 550 1000 / 1000 Zosyn 3.375 GM Premix 3.375 gm 50 / 50 In 50 ml @ 100 mls/hr IV.SIG ONCE ONE Rx#:[id number] NS Inj 1,000 ML @ Wide Open IV. 1000 / 1000 SIG BOLUS ONE Rx#:[id number] NS Inj 500 ML @ Wide Open IV. 500 / 500 SIG BOLUS ONE Rx#:[id number] Other: Date of Last Bowel Movement 06/25/18 Weight On Admission 72.57 kg Narrative: GENERAL: No acute distress. Cooperative. Slightly groggy. Appears older than stated age. Anxious. HEAD: Normocephalic. Atraumatic. EYES: Pupils equal round and reactive to light bilaterally. No scleral icterus. ENT: Moist oral mucosa. NECK: Trachea midline. CHEST: Nonlabored breathing. No respiratory distress. CARDIOVASCULAR: Regular rate and rhythm. ABDOMEN: Positive severe tenderness and rebound tenderness in the left lower abdomen. Tenderness in the left lower abdomen with palpation of the remainder of the abdomen. The remainder of the abdomen is soft. Mild distention. EXTREMITIES: Mild bilateral pedal edema. Extensive scarring of both knees. SKIN: Warm, dry, nonjaundiced. Results - Labs 06/25/18 03:40 06/25/18 03:40 Laboratory Results - last 24 hr 06/25/18 06/25/18 06/25/18 03:40 03:40 03:40 WBC 26.1 H RBC 4.83 Hgb 11.9 Hct 37.6 MCV 78.0 L MCH 24.6 L MCHC 31.6 L RDW 19.0 H Plt Count 460 H MPV 9.0 Prelim Diff (Auto) Slide review pending Neut % (Auto) 85.1 H Lymph % (Auto) 4.4 L [place] % (Auto) 10.4 H Eos % (Auto) 0.0 Baso % (Auto) 0.1 Neut # (Auto) 22.2 H Lymph # (Auto) 1.1 [place] # (Auto) 2.7 H Eos # (Auto) 0.0 Baso # (Auto) 0.0 WBC Differential Manual diff final Seg Neuts % (Manual) 82 H Band Neuts % (Manual) 1 Lymphocytes % (Manual) 6 L Monocytes % (Manual) 11 H Abs Neuts (Manual) 21.7 H Differential Comment . Platelet Estimate Normal Platelet Morphology Normal PT 10.7 INR 1.1 APTT 24.5 Sodium 141 Potassium 4.2 Chloride 109 H Carbon Dioxide 23.6 Anion Gap 8 BUN 32 H Creatinine 1.09 H Estimated GFR 50 L Random Glucose 126 H Lactic Acid Calcium 8.6 Magnesium 2.1 Total Bilirubin 0.6 AST 13 L ALT 21 Alkaline Phosphatase 92 Total Creatine Kinase 38 Troponin I Less than 0.02 L Total Protein 8.5 H Albumin 3.9 Lipase 146 Urine Color Urine Clarity Urine pH Ur Specific [place] Urine Protein Urine Glucose (UA) Urine Ketones Urine Occult Blood Urine Nitrate Urine Bilirubin Urine Urobilinogen Ur Leukocyte Esterase Urine RBC Urine WBC Ur Squamous Epith Cells Urine Bacteria Micro UA Comment Ur Microscopic Review Urine Culture Comments 06/25/18 06/25/18 06/25/18 03:40 06:00 08:35 WBC RBC Hgb Hct MCV MCH MCHC RDW Plt Count MPV Prelim Diff (Auto) Neut % (Auto) Lymph % (Auto) [place] % (Auto) Eos % (Auto) Baso % (Auto) Neut # (Auto) Lymph # (Auto) [place] # (Auto) Eos # (Auto) Baso # (Auto) WBC Differential Seg Neuts % (Manual) Band Neuts % (Manual) Lymphocytes % (Manual) Monocytes % (Manual) Abs Neuts (Manual) Differential Comment Platelet Estimate Platelet Morphology PT INR APTT Sodium Potassium Chloride Carbon Dioxide Anion Gap BUN Creatinine Estimated GFR Random Glucose Lactic Acid 2.7 H 2.2 H Calcium Magnesium Total Bilirubin AST ALT Alkaline Phosphatase Total Creatine Kinase Troponin I Total Protein Albumin Lipase Urine Color Yellow Urine Clarity Clear Urine pH 5.0 Ur Specific [place] 1.017 Urine Protein Negative Urine Glucose (UA) Negative Urine Ketones Negative Urine Occult Blood Negative Urine Nitrate Negative Urine Bilirubin Negative Urine Urobilinogen Less than 2 Ur Leukocyte Esterase Moderate H Urine RBC 2 Urine WBC 44 H Ur Squamous Epith Cells <1 Urine Bacteria Occasional H Micro UA Comment Culture indicated Ur Microscopic Review Not Reportable Urine Culture Comments Culture indicated - Imaging Imaging: ITS Impressions Chest X-Ray 06/25/18 03:33 CONCLUSION: 1. No acute cardiopulmonary process. 2. Chronic deformity of the right humeral head with associated degenerative changes. Abdomen/Pelvis CT 06/25/18 03:35 CONCLUSION: 1. Diverticular disease of the descending and sigmoid portions of the colon, most severe in the region of the sigmoid with an associated diverticulitis at the junction of the descending and sigmoid. 2. Small amount of pneumoperitoneum in the upper abdomen may be related to the aforementioned diverticulitis. 3. Atrophic changes in the left kidney probably related to chronic vascular compromise. 2 to 3 mm nonobstructing stone is seen in the lower pole collecting system of the same kidney. 4. Small umbilical and right anterior abdominal hernias only containing fat. There is some stranding of the fat within both hernias which could represent some fatty infarction, however. CT scan - abdomen: report reviewed, image reviewed CT scan - pelvis: report reviewed, image reviewed Assessment and Plan - Assessment (1) Diverticular disease of intestine with perforation and abscess Code(s): K57.80 - Diverticulitis of intestine, part unspecified, with perforation and abscess without bleeding Status: Acute - Plan Diverticulitis of the sigmoid colon with surrounding inflammation and small amount of generalized pneumoperitoneum. She has localized peritonitis in the left lower abdomen. I would like to attempt nonoperative management with IV antibiotics. Will follow closely. If she is worsening or not improving tomorrow morning I will likely plan to proceed with operative intervention. I did discuss this in detail with the patient and she understands.
[2018-06-25] MEDS: Senna/Docusate Sodium 8.6/50 MG Tablet PO SCH ×2 (16:49→21:39)
[2018-06-25] MEDS: buPROPion 150 MG 12 HR Tablet PO SCH ×2 (16:50→21:39)
[2018-06-26] MEDS: Piperacil/Tazo 3.375 GM Premix 3.375 GM/50 ML PIGGYBACK IV.SIG SCH ×4 (00:32→17:54)
[2018-06-26] MEDS: HYDROmorphone PF Inj 0.5 MG/0.5 ML Syringe IV.PUSH PRN ×3 (02:33→17:54)
[2018-06-26 07:30] LABS: Anion Gap 9 meq/L (5-15); Blood Urea Nitrogen 20 mg/dL (7-18); Carbon Dioxide 22.5 meq/L (21.0-32.0); Chloride 106 meq/L (98-107); Glomerular Filtration Rate 54 mL/min (>89); Glucose,Random 90 mg/dL (74-106); Potassium 4.2 meq/L (3.5-5.1)
[2018-06-26 08:16] LABS: Baso % (Auto) 0.1 % (0.0-2.0); Eos % (Auto) 0.1 % (0.0-4.0); Hematocrit 28.4 % (35.0-46.0); Lymph # (Auto) 0.8 th/mm3 (1.0-4.8); Lymph % (Auto) 4.4 % (9.0-44.0); Mean Corpuscular HGB Conc 32.3 % (32.0-36.0); Mean Corpuscular Hemoglobin 25.4 pg (27.0-34.0); Mean Corpuscular Volume 78.5 fL (80.0-100.0); Mean Platelet Volume 8.4 fL (7.0-11.0); Mono % (Auto) 5.7 % (0.0-8.0); Neut # (Auto) 15.6 th/mm3 (1.8-7.7); Neut % (Auto) 89.7 % (16.0-70.0); Platelet Count 241 th/mm3 (150-450); Red Blood Count 3.62 mil/mm3 (4.00-5.30); Red Cell Distribution Width 18.3 % (11.6-17.2); White Blood Count 17.3 th/mm3 (4.0-11.0)
[2018-06-26 08:18] LABS: Hemoglobin 9.2 gm/dL (11.6-15.3)
[2018-06-26] MEDS: Pantoprazole Inj 40 MG Vial IV.PUSH SCH (09:18)
[2018-06-26] MEDS: Carvedilol 6.25 MG Tablet PO SCH ×2 (09:19→20:03)
--- NOTE | 2018-06-26 10:04 | P.PNGS ---
Subjective Interval history: Pain slightly improved but still severe. + N no vomiting. Afebrile. WBC 17. Physical Exam Vital signs: Vital Signs 06/25/18 12:00 06/25/18 14:10 06/25/18 16:00 Temperature 100.7 F H 98.5 F Pulse Rate 85 88 Respiratory Rate 17 16 19 Blood Pressure 169/74 H 180/79 H Pulse Oximetry 96 97 06/25/18 20:10 06/25/18 22:21 06/25/18 23:25 Temperature 98.4 F 98.6 F Pulse Rate 84 94 H Respiratory Rate 17 16 20 Blood Pressure 134/79 158/71 H Pulse Oximetry 95 94 L 06/26/18 03:05 06/26/18 05:14 06/26/18 08:00 Temperature 98.2 F 97.9 F Pulse Rate 85 85 Respiratory Rate 18 18 22 Blood Pressure 121/78 159/70 H Pulse Oximetry 96 95 Intake & Output 06/25/18 06/26/18 06/26/18 18:59 06:59 18:59 Intake Total 1100 / 1100 1100 / 1100 Output Total 700 / 700 100 / 100 Balance 400 / 400 1000 / 1000 Weight 72.57 kg 74.2 kg Intake: IV 1100 / 1100 1100 / 1100 1/2 Normal Saline Inj 1,000 ML 1000 / 1000 @ 75 mls/hr IV.CONT .[id number] CAROL Rx#:[id number] Zosyn 3.375 GM Premix 3.375 gm 100 / 100 100 / 100 In 50 ml @ 100 mls/hr IV.SIG Q6H CAROL Rx#:[id number] NS Inj 1,000 ML @ Wide Open IV. 1000 / 1000 SIG BOLUS ONE Rx#:[id number] Oral 0 / 0 Output: Urine 700 / 700 100 / 100 Other: # Incontinent Voids 6 Date of Last Bowel Movement 06/25/18 06/24/18 06/24/18 Weight On Admission 72.57 kg Narrative: NAD Abd: severe ttp, rebound and guarding in LLQ. + rebound in epigastrium. Otherwise mild ttp and soft. Results - Labs 06/26/18 07:47 06/25/18 03:40 Laboratory Results - last 24 hr 06/26/18 07:47 WBC 17.3 H RBC 3.62 L Hgb 9.2 L D Hct 28.4 L MCV 78.5 L MCH 25.4 L MCHC 32.3 RDW 18.3 H Plt Count 241 D MPV 8.4 Neut % (Auto) 89.7 H Lymph % (Auto) 4.4 L [place] % (Auto) 5.7 Eos % (Auto) 0.1 Baso % (Auto) 0.1 Neut # (Auto) 15.6 H Lymph # (Auto) 0.8 L [place] # (Auto) 1.0 H Eos # (Auto) 0.0 Baso # (Auto) 0.0 WBC Differential . Differential Comment Auto diff final - Imaging Imaging: ITS Impressions Chest X-Ray 06/25/18 03:33 CONCLUSION: 1. No acute cardiopulmonary process. 2. Chronic deformity of the right humeral head with associated degenerative changes. Abdomen/Pelvis CT 06/25/18 03:35 CONCLUSION: 1. Diverticular disease of the descending and sigmoid portions of the colon, most severe in the region of the sigmoid with an associated diverticulitis at the junction of the descending and sigmoid. 2. Small amount of pneumoperitoneum in the upper abdomen may be related to the aforementioned diverticulitis. 3. Atrophic changes in the left kidney probably related to chronic vascular compromise. 2 to 3 mm nonobstructing stone is seen in the lower pole collecting system of the same kidney. 4. Small umbilical and right anterior abdominal hernias only containing fat. There is some stranding of the fat within both hernias which could represent some fatty infarction, however. Assessment and Plan - Assessment (1) Diverticular disease of intestine with perforation and abscess Code(s): K57.80 - Diverticulitis of intestine, part unspecified, with perforation and abscess without bleeding Status: Acute - Plan Mild improvement but still very tender. I recommend to go ahead and proceed to the operating room for treatment of the perforation. Diagnostic laparoscopy, possible drainage, possible diverting ileostomy. If severe will need open Loreto's procedure. Discussed all in detail with patient and she understands and desires to proceed as required.
[2018-06-26 10:28] LABS: Alanine Aminotransferase 13 U/L (10-53); Aspartate Aminotransferase 9 U/L (15-37); Sodium 137 meq/L (136-145); Total Protein 6.2 g/dL (6.4-8.2)
[2018-06-26 10:29] LABS: Albumin 2.5 g/dL (3.4-5.0); Alkaline Phosphatase 65 U/L (45-117)
--- NOTE | 2018-06-26 10:34 | P.PNIM ---
Subjective Interval history: Patient reports she is still having severe abdominal pain Physical Exam Vital signs: Last Vital Signs Temp 97.9 F 06/26/18 08:00 Pulse 85 06/26/18 08:00 Resp 22 06/26/18 08:00 BP 159/70 H 06/26/18 08:00 Pulse Ox 95 06/26/18 08:00 Narrative: GENERAL: This is a well-nourished, well-developed patient, in no apparent distress. CARDIOVASCULAR: Regular rate and rhythm RESPIRATORY: Clear to auscultation. Breath sounds equal bilaterally. GASTROINTESTINAL: severe tenderness to palpation, rebound and guarding in LLQ. + rebound in epigastrium. Otherwise generalized tenderness to palpation and soft MUSCULOSKELETAL: Extremities without clubbing, cyanosis, or edema. NEURO: Alert & Oriented . Moves all ext x4 Results Labs CBC & Chem 7: 06/26/18 07:47 06/26/18 07:47 Assessment and Plan Assessment (1) Diverticular disease of intestine with perforation and abscess: Code(s): K57.80 - Diverticulitis of intestine, part unspecified, with perforation and abscess without bleeding Status: Acute Plan Ms. Blanc is a 67 y/o female with CKD stage III, hypertension, dilated cardiomyopathy, scoliosis of lumbar spine, fibromyalgia, cervical radiculitis, spinal stenosis and GERD. Patient presents to the [facility] emergency department with a history of abdominal pain that began yesterday and has been coming and going since onset. She reports that the pain began on the left lower quadrant of the abdomen and but it seems to be spreading throughout the lower pelvis since onset. Diverticular disease with pneumoperitoneum WBC 26.1, LA 2.7 -> WBC 17.3 (06/26) Chest X-Ray 06/25/18 1. No acute cardiopulmonary process. 2. Chronic deformity of the right humeral head with associated degenerative changes. Abdomen/Pelvis CT 06/25/18 1. Diverticular disease of the descending and sigmoid portions of the colon , most severe in the region of the sigmoid with an associated diverticulitis at the junction of the descending and sigmoid. 2. Small amount of pneumoperitoneum in the upper abdomen may be related to the aforementioned diverticulitis. 3. Atrophic changes in the left kidney probably related to chronic vascular compromise. 2 to 3 mm nonobstructing stone is seen in the lower pole collecting system of the same kidney. 4. Small umbilical and right anterior abdominal hernias only containing fat. There is some stranding of the fat within both hernias which could represent some fatty infarction, however. NPO IVF Zosyn started in the ER, will continue Zofran as needed for N/V Ultram and Dilaudid as needed for pain ER provider spoke to general surgery Dr. Plasencia Consult to general surgery, appreciate assistance - plans to take patient to OR today CKD, stage 3 - On admission BUN 32, creatinine 1.09, estimated GFR 50. - Review of outpatient records patient has had chronic kidney disease stage III with BUN and averaging in the low 30s creatinine 1.1-1.4 and estimated GFR 34-59 - monitor renal function Hypertension - Pt is on Enalapril 20 mg BID and Carvedilol 6.25 mg BID - clonidine PRN, Vasotec as needed Dilated cardiomyopathy - 2D Echocardiogram (11/2017): - Estimated ejection fraction in the range of 50- 55%. - There is trace tricuspid valve regurgitation. - The estimated pulmonary arterial pressure is 31.7 mmHg. - Continue home enalapril 20 mg BID and home carvedilol 6.25 mg BID GERD - Continue home Protonix DVT prophylaxis with SCDs Attending Attestation Patient examined. Assessment and plan formulated with Gabi aLndis PA-C. I agree with the above. diverticulitis with perforation. wbc improved persistent pain and rebound. going to OR today with Dr Plasencia cont iv abx and ivf. Progress Note: Quality VTE Deep Vein Thrombosis/Pulmonary Embolism Present on Admission: No
[2018-06-26] MEDS: buPROPion 150 MG 12 HR Tablet PO SCH ×2 (11:39→20:08)
[2018-06-26] MEDS: Sodium Chloride 0.45 % Inj 1,000 ML IV.CONT SCH ×2 (11:59→23:56)
[2018-06-26] MEDS: Senna/Docusate Sodium 8.6/50 MG Tablet PO SCH ×2 (12:23→20:08)
[2018-06-26] MEDS ORDERED: Metoprolol Tartrate 25 MG Tablet PO ONE (14:57)
[2018-06-26] MEDS ORDERED: Sodium Chlor 0.9% Inj 500 ML IV.SIG SCH (15:00)
[2018-06-26] MEDS ORDERED: Bupivacaine/Epinephrine Inj 0.25% 50 ML Vial ONE (20:10)
[2018-06-26] MEDS ORDERED: fentaNYL Citrate Inj 250 MCG/5 ML Ampul ONE (20:44)
[2018-06-26] MEDS ORDERED: Glycopyrrolate Inj 1 MG/5 ML Syringe IV.PUSH ONE (20:45)
[2018-06-26] MEDS ORDERED: hydrALAZINE HCl Inj 20 MG/ML Vial IV.PUSH ONE (20:45)
[2018-06-26] MEDS ORDERED: Lidocaine PF 1% Inj 5 ML Syringe OTHER ONE (20:45)
[2018-06-26] MEDS ORDERED: Succinylcholine Inj 100 MG/5 ML Syringe IV.PUSH ONE (20:45)
[2018-06-26] MEDS ORDERED: Labetalol HCl Inj 100 MG/20 ML Vial IV.CONT ONE (20:45)
[2018-06-26] MEDS ORDERED: Normosol-R pH 7.4 Inj 1,000 ML IV.CONT ONE (20:45)
[2018-06-26] MEDS ORDERED: Neostigmine Inj 5 MG/5 ML Syringe IV.PUSH ONE (20:45)
[2018-06-26] MEDS ORDERED: Sodium Chlor 0.9% Inj 500 ML IV.CONT ONE (20:45)
[2018-06-26] MEDS ORDERED: fentaNYL Citrate Inj 1,000 MCG/20 ML Vial ONE (21:26)
--- NOTE | 2018-06-26 22:14 | P.OP ---
- Preoperative Diagnosis (1) Diverticular disease of intestine with perforation and abscess - Postoperative Diagnosis (1) Diverticular disease of intestine with perforation and abscess Date of procedure: 06/26/18 Procedure: Laparoscopic washout and drainage of diverticular abscess Anesthesia: NAZ Surgeon: Mendez Plasencia MD Cane Flume Chute Operator: Jevon MCCLOUD Estimated blood loss (mL): 20 Operation and Findings: Operative findings: The patient had a moderate amount of pus confined to the left lower abdomen surrounded by sigmoid colon and loops of small bowel. The sigmoid perforation had sealed and there was no obvious hole in the colon. Procedure in detail: The patient was taken to the operating room placed in supine position. General endotracheal anesthesia was induced. The abdomen was prepped and draped in usual sterile fashion and surgical timeout was performed to verify correct patient procedure and site. Local anesthetic was injected in skin and subcutaneous tissue in the right mid abdomen a 5 mm incision made. The Optiview trocar with the laparoscope in place was directly inserted into the abdomen which was insufflated to 15 mmHg with CO2 gas which the patient tolerated well. A 5 mm port was placed in the right lower abdomen and in the right upper abdomen under direct visualization. The patient was placed in Trendelenburg position. Attention was turned to the left lower quadrant where there was noted to be a moderate amount of pus. There is inflammation of multiple loops of small bowel which were carefully from each other. The purulent fluid was suctioned. The sigmoid colon was inflamed there is some exudative material present. There is no obvious hole in the sigmoid colon. The colon was adherent to the pelvic sidewall. After careful separation of the loops of small bowel and colon and suctioning of the purulent fluid the abdomen was copiously irrigated with 3 L of normal saline. A 19 [place] round Abraham drain was placed in the left midabdomen and positioned along the left paracolic gutter into the pelvis. Trochars were removed and the abdomen was desufflated. Skin was closed with subcuticular 4-0 Monocryl and Dermabond. The patient tolerated the procedure well was extubated and taken to PACU in stable condition.
[2018-06-26] MEDS: Ketorolac Inj 30 MG/ML (IVP) Vial IV.PUSH SCH (23:58)
[2018-06-27] MEDS: Ketorolac Inj 30 MG/ML (IVP) Vial IV.PUSH SCH ×4 (04:11→21:15)
[2018-06-27] MEDS: HYDROmorphone PF Inj 0.5 MG/0.5 ML Syringe IV.PUSH PRN (04:12)
[2018-06-27] MEDS: Piperacil/Tazo 3.375 GM Premix 3.375 GM/50 ML PIGGYBACK IV.SIG SCH ×5 (05:27→23:07)
[2018-06-27 06:13] LABS: Baso # (Auto) 0.1 th/mm3 (0.0-0.2); Baso % (Auto) 0.3 % (0.0-2.0); Hematocrit 29.4 % (35.0-46.0); Hemoglobin 9.4 gm/dL (11.6-15.3); Lymph # (Auto) 0.4 th/mm3 (1.0-4.8); Lymph % (Auto) 1.8 % (9.0-44.0); Mean Corpuscular Hemoglobin 25.4 pg (27.0-34.0); Mean Corpuscular Volume 79.5 fL (80.0-100.0); Mono # (Auto) 0.7 th/mm3 (0.0-0.9); Mono % (Auto) 3.5 % (0.0-8.0); Neut # (Auto) 18.8 th/mm3 (1.8-7.7); Neut % (Auto) 94.4 % (16.0-70.0); Platelet Count 266 th/mm3 (150-450); Red Cell Distribution Width 18.2 % (11.6-17.2); White Blood Count 19.9 th/mm3 (4.0-11.0)
[2018-06-27 06:48] LABS: Calcium 8.2 mg/dL (8.5-10.1); Carbon Dioxide 20.6 meq/L (21.0-32.0); Potassium 4.1 meq/L (3.5-5.1)
[2018-06-27] MEDS: Pantoprazole Inj 40 MG Vial IV.PUSH SCH (09:46)
[2018-06-27] MEDS: buPROPion 150 MG 12 HR Tablet PO SCH ×2 (12:30→21:09)
[2018-06-27] MEDS: Carvedilol 6.25 MG Tablet PO SCH ×2 (12:30→21:09)
[2018-06-27] MEDS ORDERED: Phenol 1.4% 180 ML Spray Bottle OROPHARYNG ONE (12:40)
[2018-06-27] MEDS ORDERED: Phenol 1.4% 180 ML Spray Bottle OROPHARYNG PRN (12:40)
[2018-06-27] MEDS: Senna/Docusate Sodium 8.6/50 MG Tablet PO SCH ×2 (12:43→21:09)
--- NOTE | 2018-06-27 12:45 | P.PNIM ---
Subjective Interval history: pt in alot of pain. sore throat. no flatus Physical Exam Vital signs: Last Vital Signs Temp 98.3 F 06/27/18 08:28 Pulse 71 06/27/18 08:28 Resp 18 06/27/18 08:28 BP 167/63 H 06/27/18 08:28 Pulse Ox 95 06/27/18 08:28 Narrative: GENERAL: This is a well-nourished, well-developed patient, in no apparent distress. CARDIOVASCULAR: Regular rate and rhythm RESPIRATORY: Clear to auscultation. Breath sounds equal bilaterally. GASTROINTESTINAL:diffusely tender. no bs ngt to suction. MUSCULOSKELETAL: Extremities without clubbing, cyanosis, or edema. NEURO: Alert & Oriented . Moves all ext x4 Results Labs CBC & Chem 7: 06/27/18 05:11 06/27/18 05:11 Assessment and Plan Assessment (1) Diverticular disease of intestine with perforation and abscess: Code(s): K57.80 - Diverticulitis of intestine, part unspecified, with perforation and abscess without bleeding Status: Acute Plan Ms. Blanc is a 67 y/o female with CKD stage III, hypertension, dilated cardiomyopathy, scoliosis of lumbar spine, fibromyalgia, cervical radiculitis, spinal stenosis and GERD. Patient presents to the [facility] emergency department with a history of abdominal pain that began yesterday and has been coming and going since onset. She reports that the pain began on the left lower quadrant of the abdomen and but it seems to be spreading throughout the lower pelvis since onset. Diverticular disease with pneumoperitoneum WBC 26.1, LA 2.7 -> WBC 17.3 (06/26) Chest X-Ray 06/25/18 1. No acute cardiopulmonary process. 2. Chronic deformity of the right humeral head with associated degenerative changes. Abdomen/Pelvis CT 06/25/18 1. Diverticular disease of the descending and sigmoid portions of the colon , most severe in the region of the sigmoid with an associated diverticulitis at the junction of the descending and sigmoid. 2. Small amount of pneumoperitoneum in the upper abdomen may be related to the aforementioned diverticulitis. 3. Atrophic changes in the left kidney probably related to chronic vascular compromise. 2 to 3 mm nonobstructing stone is seen in the lower pole collecting system of the same kidney. 4. Small umbilical and right anterior abdominal hernias only containing fat. There is some stranding of the fat within both hernias which could represent some fatty infarction, -06/26. Lap. pus in left lower quadrant with sealed sigmoid perf. continue zosyn cont ivf ngt and diet per gen surg Zofran as needed for N/V Ultram and Dilaudid as needed for pain CKD, stage 3 - On admission BUN 32, creatinine 1.09, estimated GFR 50. - Review of outpatient records patient has had chronic kidney disease stage III with BUN and averaging in the low 30s creatinine 1.1-1.4 and estimated GFR 34-59 - monitor renal function Hypertension - Pt is on Enalapril 20 mg BID and Carvedilol 6.25 mg BID - clonidine PRN, Vasotec as needed Dilated cardiomyopathy - 2D Echocardiogram (11/2017): - Estimated ejection fraction in the range of 50- 55%. - There is trace tricuspid valve regurgitation. - The estimated pulmonary arterial pressure is 31.7 mmHg. - Continue home enalapril 20 mg BID and home carvedilol 6.25 mg BID GERD - Continue home Protonix DVT prophylaxis with SCDs Progress Note: Quality VTE Deep Vein Thrombosis/Pulmonary Embolism Present on Admission: No
[2018-06-27] MEDS: Sodium Chloride 0.45 % Inj 1,000 ML IV.CONT SCH (14:10)
--- NOTE | 2018-06-27 16:26 | P.PNGS ---
Subjective Interval history: C/o "different" pain in abdomen, LLQ and RLQ. C/o sore throat from NGT. Physical Exam Vital signs: Vital Signs 06/26/18 19:50 06/26/18 20:08 06/26/18 22:20 Temperature 97.8 F 98.1 F Pulse Rate 81 78 Respiratory Rate 18 18 17 Blood Pressure 188/83 H 143/77 H Pulse Oximetry 95 92 L 06/26/18 22:30 06/26/18 22:45 06/26/18 23:00 Temperature Pulse Rate 97 H 101 H 88 Respiratory Rate 22 24 22 Blood Pressure 162/111 H 193/94 H 169/77 H Pulse Oximetry 92 L 90 L 93 L 06/26/18 23:15 06/26/18 23:30 06/26/18 23:52 Temperature 98.0 F 97.2 F L Pulse Rate 69 67 67 Respiratory Rate 16 16 17 Blood Pressure 143/62 H 137/58 L 147/66 H Pulse Oximetry 92 L 95 06/27/18 00:28 06/27/18 04:10 06/27/18 04:41 Temperature 97.3 F L Pulse Rate 86 Respiratory Rate 16 17 17 Blood Pressure 216/91 H Pulse Oximetry 98 06/27/18 04:42 06/27/18 05:03 06/27/18 08:28 Temperature 98.3 F Pulse Rate 71 Respiratory Rate 17 18 Blood Pressure 184/81 H 167/63 H Pulse Oximetry 95 06/27/18 12:55 06/27/18 14:45 Temperature 98.4 F Pulse Rate 73 Respiratory Rate 20 18 Blood Pressure 154/86 H Pulse Oximetry 100 Intake & Output 06/26/18 06/27/18 06/27/18 18:59 06:59 18:59 Intake Total 1100 / 1100 2900 / 2900 Output Total 1145 / 1145 Balance 1100 / 1100 1755 / 1755 Weight 73.6 kg Intake: IV 1100 / 1100 1100 / 1100 1/2 Normal Saline Inj 1,000 ML 1000 / 1000 1000 / 1000 @ 75 mls/hr IV.CONT .[id number] CAROL Rx#:[id number] Zosyn 3.375 GM Premix 3.375 gm 100 / 100 100 / 100 In 50 ml @ 100 mls/hr IV.SIG Q6H CAROL Rx#:[id number] Oral 0 / 0 Anesthesia Amount 1800 / 1800 Output: Estimated Blood Loss 20 / 20 Urine Amount (Catheter) 725 / 725 Indwelling Urethral Catheter 725 / 725 Gastric Drainage 100 / 100 Right Nare Nasogastric Tube 100 / 100 Wound Drainage 300 / 300 # 1 Left Abdomen SPENSER Drain 300 / 300 Other: # Incontinent Voids 6 Date of Last Bowel Movement 06/24/18 06/24/18 06/24/18 # Bowel Movements 0 Narrative: NAD Nonlabored breathing Min NGT output, hall edgardo urine Abd: soft, post op ttp, inc c/d/i - Urinary Catheter Management Indwelling Urethral Catheter Cath placed during this visit: yes Reason for continuing: Other continuation reason Insertion date: 06/26/18 Insertion time: 21:00 Results - Labs 06/27/18 05:11 06/27/18 05:11 Laboratory Results - last 24 hr 06/27/18 06/27/18 05:11 05:11 WBC 19.9 H RBC 3.70 L Hgb 9.4 L Hct 29.4 L MCV 79.5 L MCH 25.4 L MCHC 32.0 RDW 18.2 H Plt Count 266 MPV 9.0 Neut % (Auto) 94.4 H Lymph % (Auto) 1.8 L [place] % (Auto) 3.5 Eos % (Auto) 0.0 Baso % (Auto) 0.3 Neut # (Auto) 18.8 H Lymph # (Auto) 0.4 L [place] # (Auto) 0.7 Eos # (Auto) 0.0 Baso # (Auto) 0.1 WBC Differential . Differential Comment Auto diff final Sodium 136 Potassium 4.1 Chloride 104 Carbon Dioxide 20.6 L Anion Gap 11 BUN 22 H Creatinine 0.92 Estimated GFR 61 L Random Glucose 117 H Calcium 8.2 L - Imaging Imaging: ITS Impressions Chest X-Ray 06/25/18 03:33 CONCLUSION: 1. No acute cardiopulmonary process. 2. Chronic deformity of the right humeral head with associated degenerative changes. Abdomen/Pelvis CT 06/25/18 03:35 CONCLUSION: 1. Diverticular disease of the descending and sigmoid portions of the colon, most severe in the region of the sigmoid with an associated diverticulitis at the junction of the descending and sigmoid. 2. Small amount of pneumoperitoneum in the upper abdomen may be related to the aforementioned diverticulitis. 3. Atrophic changes in the left kidney probably related to chronic vascular compromise. 2 to 3 mm nonobstructing stone is seen in the lower pole collecting system of the same kidney. 4. Small umbilical and right anterior abdominal hernias only containing fat. There is some stranding of the fat within both hernias which could represent some fatty infarction, however. Assessment and Plan - Assessment (1) Diverticular disease of intestine with perforation and abscess Code(s): K57.80 - Diverticulitis of intestine, part unspecified, with perforation and abscess without bleeding Status: Acute - Plan POD 1 s/p lap drainage peridiverticular abscess. Stable. D/c ngt start clears. D/c hall. Ambulate as tolerated. DVT proph: SCDs, lovenox.
[2018-06-28] MEDS: Sodium Chloride 0.45 % Inj 1,000 ML IV.CONT SCH (03:43)
[2018-06-28] MEDS: Ketorolac Inj 30 MG/ML (IVP) Vial IV.PUSH SCH ×3 (03:43→16:44)
[2018-06-28] MEDS: Piperacil/Tazo 3.375 GM Premix 3.375 GM/50 ML PIGGYBACK IV.SIG SCH ×3 (05:02→19:04)
[2018-06-28 05:28] LABS: Baso % (Auto) 0.1 % (0.0-2.0); Hematocrit 25.3 % (35.0-46.0); Hemoglobin 8.1 gm/dL (11.6-15.3); Lymph # (Auto) 0.7 th/mm3 (1.0-4.8); Lymph % (Auto) 5.9 % (9.0-44.0); Mean Corpuscular Volume 78.1 fL (80.0-100.0); Mean Platelet Volume 9.2 fL (7.0-11.0); Mono # (Auto) 0.9 th/mm3 (0.0-0.9); Mono % (Auto) 7.3 % (0.0-8.0); Neut # (Auto) 10.6 th/mm3 (1.8-7.7); Neut % (Auto) 86.7 % (16.0-70.0); Platelet Count 247 th/mm3 (150-450); Red Blood Count 3.24 mil/mm3 (4.00-5.30); Red Cell Distribution Width 18.2 % (11.6-17.2); White Blood Count 12.3 th/mm3 (4.0-11.0)
[2018-06-28 05:57] LABS: Calcium 8.1 mg/dL (8.5-10.1); Carbon Dioxide 22.3 meq/L (21.0-32.0); Potassium 4.1 meq/L (3.5-5.1)
[2018-06-28] MEDS: Acetaminophen 325 MG Tablet PO PRN ×3 (06:50→19:04)
[2018-06-28] MEDS: Senna/Docusate Sodium 8.6/50 MG Tablet PO SCH ×2 (09:42→20:46)
[2018-06-28] MEDS: Carvedilol 6.25 MG Tablet PO SCH ×2 (10:04→20:47)
[2018-06-28] MEDS: buPROPion 150 MG 12 HR Tablet PO SCH ×2 (10:04→20:47)
[2018-06-28] MEDS: Enoxaparin Inj 40 MG/0.4 ML Syringe SQ SCH ×2 (10:06→10:15)
[2018-06-28] MEDS: Pantoprazole Inj 40 MG Vial IV.PUSH SCH (10:06)
--- NOTE | 2018-06-28 10:23 | P.PNGS ---
Subjective Interval history: C/o lower abdominal pain- refuses any narcotic stronger than ultram. Also on tylenol, toradol. Has ambulated in room with walker- has h/o difficulty with ambulation and uses walker at home. + small amt flatus. Tolerated some clears but also has some nausea. Physical Exam Vital signs: Vital Signs 06/27/18 12:55 06/27/18 14:45 06/27/18 20:00 Temperature 98.4 F 98.1 F Pulse Rate 73 61 Respiratory Rate 20 18 18 Blood Pressure 154/86 H 200/84 H Pulse Oximetry 100 99 06/27/18 23:48 06/28/18 04:00 06/28/18 06:52 Temperature 98.1 F 97.7 F Pulse Rate 59 L 66 60 Respiratory Rate 18 18 Blood Pressure 181/80 H 172/82 H 184/82 H Pulse Oximetry 96 97 96 06/28/18 08:00 Temperature 98.0 F Pulse Rate 56 L Respiratory Rate 20 Blood Pressure 198/86 H Pulse Oximetry 99 Intake & Output 06/27/18 06/28/18 06/28/18 18:59 06:59 18:59 Intake Total 1050 / 1050 1630 / 1630 Output Total 500 / 500 Balance 1050 / 1050 1130 / 1130 Weight 91 kg Intake: IV 1050 / 1050 1150 / 1150 1/2 Normal Saline Inj 1,000 ML 1000 / 1000 1000 / 1000 @ 75 mls/hr IV.CONT .[id number] CAROL Rx#:[id number] Zosyn 3.375 GM Premix 3.375 gm 50 / 50 150 / 150 In 50 ml @ 100 mls/hr IV.SIG Q6H CAROL Rx#:[id number] Oral 480 / 480 Output: Urine Amount (Catheter) 450 / 450 Female External 450 / 450 Wound Drainage 50 / 50 # 1 Left Abdomen ERICKA Drain 50 / 50 Other: Date of Last Bowel Movement 06/24/18 06/26/18 06/26/18 # Bowel Movements 0 Narrative: NAD Nonlabored breathing Abd: soft, post op ttp, inc c/d/i, ericka serous - Urinary Catheter Management Indwelling Urethral Catheter Cath placed during this visit: yes Reason for continuing: Other continuation reason Insertion date: 06/26/18 Insertion time: 21:00 Female External Cath placed during this visit: no Results - Labs 06/28/18 04:51 06/28/18 04:51 Laboratory Results - last 24 hr 06/28/18 06/28/18 04:51 04:51 WBC 12.3 H RBC 3.24 L Hgb 8.1 L Hct 25.3 L MCV 78.1 L MCH 25.0 L MCHC 32.0 RDW 18.2 H Plt Count 247 MPV 9.2 Neut % (Auto) 86.7 H Lymph % (Auto) 5.9 L [place] % (Auto) 7.3 Eos % (Auto) 0.0 Baso % (Auto) 0.1 Neut # (Auto) 10.6 H Lymph # (Auto) 0.7 L [place] # (Auto) 0.9 Eos # (Auto) 0.0 Baso # (Auto) 0.0 WBC Differential . Differential Comment Auto diff final Sodium 138 Potassium 4.1 Chloride 107 Carbon Dioxide 22.3 Anion Gap 9 BUN 28 H Creatinine 1.08 H Estimated GFR 50 L Random Glucose 110 H Calcium 8.1 L - Imaging Imaging: ITS Impressions Chest X-Ray 06/25/18 03:33 CONCLUSION: 1. No acute cardiopulmonary process. 2. Chronic deformity of the right humeral head with associated degenerative changes. Abdomen/Pelvis CT 06/25/18 03:35 CONCLUSION: 1. Diverticular disease of the descending and sigmoid portions of the colon, most severe in the region of the sigmoid with an associated diverticulitis at the junction of the descending and sigmoid. 2. Small amount of pneumoperitoneum in the upper abdomen may be related to the aforementioned diverticulitis. 3. Atrophic changes in the left kidney probably related to chronic vascular compromise. 2 to 3 mm nonobstructing stone is seen in the lower pole collecting system of the same kidney. 4. Small umbilical and right anterior abdominal hernias only containing fat. There is some stranding of the fat within both hernias which could represent some fatty infarction, however. Assessment and Plan - Assessment (1) Diverticular disease of intestine with perforation and abscess Code(s): K57.80 - Diverticulitis of intestine, part unspecified, with perforation and abscess without bleeding Status: Acute - Plan POD 2 s/p lap drainage peridiverticular abscess. Stable. PT eval. H/o difficulty with ambulation. WBC improved, hgb decreased. Recheck in am. Soft diet. toradol, tylenol, ultram for pain. Refuses hydrocodone. DVT proph: SCDs, lovenox.
--- NOTE | 2018-06-28 12:22 | P.PNIM ---
Subjective Interval history: Pt reports that she is still having pain but she has been very reluctant to take anything other than ultram or tylenol Her BP has been elevated as well She reports that she has an appt with her [employer], Dr. Yarbrough, next week and an appt with Dr. Pike on Monday next week as well. Physical Exam Vital signs: Last Vital Signs Temp 97.8 F 06/28/18 12:00 Pulse 58 L 06/28/18 12:00 Resp 19 06/28/18 12:00 BP 181/84 H 06/28/18 12:00 Pulse Ox 99 06/28/18 12:00 Narrative: GENERAL: This is a well-nourished, well-developed patient, in no apparent distress. CARDIOVASCULAR: Regular rate and rhythm RESPIRATORY: Clear to auscultation. Breath sounds equal bilaterally. GASTROINTESTINAL:diffusely tender. SPENSER drain in LLQ with purulent drainage noted MUSCULOSKELETAL: Extremities without clubbing, cyanosis, or edema. NEURO: Alert & Oriented . Moves all ext x4 Results Labs CBC & Chem 7: 06/28/18 04:51 06/28/18 04:51 Assessment and Plan Assessment (1) Diverticular disease of intestine with perforation and abscess: Code(s): K57.80 - Diverticulitis of intestine, part unspecified, with perforation and abscess without bleeding Status: Acute Plan Ms. Blanc is a 67 y/o female with CKD stage III, hypertension, dilated cardiomyopathy, scoliosis of lumbar spine, fibromyalgia, cervical radiculitis, spinal stenosis and GERD. Patient presents to the [facility] emergency department with a history of abdominal pain that began yesterday and has been coming and going since onset. She reports that the pain began on the left lower quadrant of the abdomen and but it seems to be spreading throughout the lower pelvis since onset. Diverticular disease with pneumoperitoneum Leukocytosis - Pts labs at admission with noted WBC 26.1, LA 2.7 Chest X-Ray 06/25/18 1. No acute cardiopulmonary process. 2. Chronic deformity of the right humeral head with associated degenerative changes. Abdomen/Pelvis CT 06/25/18 1. Diverticular disease of the descending and sigmoid portions of the colon , most severe in the region of the sigmoid with an associated diverticulitis at the junction of the descending and sigmoid. 2. Small amount of pneumoperitoneum in the upper abdomen may be related to the aforementioned diverticulitis. 3. Atrophic changes in the left kidney probably related to chronic vascular compromise. 2 to 3 mm nonobstructing stone is seen in the lower pole collecting system of the same kidney. 4. Small umbilical and right anterior abdominal hernias only containing fat. There is some stranding of the fat within both hernias which could represent some fatty infarction, - Pt was seen by General Surgery and underwent lap drainage peridiverticular abscess, pt with SPENSER drain in place. - continue zosyn - Zofran as needed for N/V - Ultram and Tylenol as needed for pain, pt refusing anything more than that CKD, stage 3 - On admission BUN 32, creatinine 1.09, estimated GFR 50. - Review of outpatient records patient has had chronic kidney disease stage III with BUN and averaging in the low 30s creatinine 1.1-1.4 and estimated GFR 34-59 - monitor renal function Hypertension - Pts BP is still running high, likely pain is contributing and pt refusing much inb the way of pain meds - Pt is on Enalapril 20 mg BID and Carvedilol 6.25 mg BID - clonidine PRN, Vasotec as needed Dilated cardiomyopathy - 2D Echocardiogram (11/2017): - Estimated ejection fraction in the range of 50- 55%. - There is trace tricuspid valve regurgitation. - The estimated pulmonary arterial pressure is 31.7 mmHg. - Continue home enalapril 20 mg BID and home carvedilol 6.25 mg BID GERD - Continue home Protonix DVT prophylaxis with SCDs Pt refusing Lovenox Attending Attestation Patient examined. Assessment and plan formulated with Mary Lei PA-C. I agree with the above. pt eager for dc tomorrow diet advanced elevated bp. orders written. pain better passing flatus. sitting in chair at moment Progress Note: Quality VTE Deep Vein Thrombosis/Pulmonary Embolism Present on Admission: No
[2018-06-28] MEDS ORDERED: Menthol 5.8 MG Lozenge BUCCAL PRN (14:01)
[2018-06-29] MEDS: Ketorolac Inj 30 MG/ML (IVP) Vial IV.PUSH SCH ×5 (00:22→22:17)
[2018-06-29] MEDS: Piperacil/Tazo 3.375 GM Premix 3.375 GM/50 ML PIGGYBACK IV.SIG SCH ×3 (00:22→11:23)
[2018-06-29] MEDS: Sodium Chloride 0.45 % Inj 1,000 ML IV.CONT SCH ×2 (00:23→05:35)
[2018-06-29] MEDS: Acetaminophen 325 MG Tablet PO PRN ×3 (04:16→17:46)
[2018-06-29 07:09] LABS: Baso % (Auto) 0.2 % (0.0-2.0); Eos # (Auto) 0.1 th/mm3 (0.0-0.4); Hematocrit 24.5 % (35.0-46.0); Lymph # (Auto) 0.7 th/mm3 (1.0-4.8); Lymph % (Auto) 10.3 % (9.0-44.0); Mean Corpuscular HGB Conc 32.8 % (32.0-36.0); Mean Corpuscular Hemoglobin 25.6 pg (27.0-34.0); Mean Corpuscular Volume 77.9 fL (80.0-100.0); Mean Platelet Volume 9.3 fL (7.0-11.0); Mono # (Auto) 0.9 th/mm3 (0.0-0.9); Mono % (Auto) 12.2 % (0.0-8.0); Neut # (Auto) 5.5 th/mm3 (1.8-7.7); Neut % (Auto) 76.3 % (16.0-70.0); Platelet Count 216 th/mm3 (150-450); Red Blood Count 3.14 mil/mm3 (4.00-5.30); Red Cell Distribution Width 18.1 % (11.6-17.2); White Blood Count 7.2 th/mm3 (4.0-11.0)
[2018-06-29 07:37] LABS: Calcium 8.2 mg/dL (8.5-10.1); Carbon Dioxide 21.9 meq/L (21.0-32.0); Potassium 4.6 meq/L (3.5-5.1)
--- NOTE | 2018-06-29 09:06 | P.PNIM ---
Subjective Interval history: Pt is anxious to go home but she still has SPENSER drain in place, reportedly drained 20cc overnight Her BP is still elevated but she does not want her home medications modified She reports that she has Clonidine PRN at home as well +Flatus but no BM Pt refused to work with PT yesterday Nurse reports that the pt refused to let her take the [place] away yesterday because she didn't want to get up to go to the bathroom Physical Exam Vital signs: Last Vital Signs Temp 98.1 F 06/29/18 07:00 Pulse 72 06/29/18 07:00 Resp 20 06/29/18 07:00 BP 194/86 H 06/29/18 07:00 Pulse Ox 97 06/29/18 07:00 Narrative: GENERAL: This is a well-nourished, well-developed patient, in no apparent distress. CARDIOVASCULAR: Regular rate and rhythm RESPIRATORY: Clear to auscultation. Breath sounds equal bilaterally. GASTROINTESTINAL:+BS, diffusely tender. SPENSER drain in LLQ with purulent drainage noted MUSCULOSKELETAL: Extremities without clubbing, cyanosis, or edema. NEURO: Alert & Oriented . Moves all ext x4 Results Labs CBC & Chem 7: 06/29/18 06:34 06/29/18 06:04 Imaging Chest X-Ray 06/25/18 03:33 CONCLUSION: 1. No acute cardiopulmonary process. 2. Chronic deformity of the right humeral head with associated degenerative changes. Abdomen/Pelvis CT 06/25/18 03:35 CONCLUSION: 1. Diverticular disease of the descending and sigmoid portions of the colon, most severe in the region of the sigmoid with an associated diverticulitis at the junction of the descending and sigmoid. 2. Small amount of pneumoperitoneum in the upper abdomen may be related to the aforementioned diverticulitis. 3. Atrophic changes in the left kidney probably related to chronic vascular compromise. 2 to 3 mm nonobstructing stone is seen in the lower pole collecting system of the same kidney. 4. Small umbilical and right anterior abdominal hernias only containing fat. There is some stranding of the fat within both hernias which could represent some fatty infarction, however. Assessment and Plan Assessment (1) Diverticular disease of intestine with perforation and abscess: Code(s): K57.80 - Diverticulitis of intestine, part unspecified, with perforation and abscess without bleeding Status: Acute Plan Ms. Blanc is a 67 y/o female with CKD stage III, hypertension, dilated cardiomyopathy, scoliosis of lumbar spine, fibromyalgia, cervical radiculitis, spinal stenosis and GERD. Patient presents to the [facility] emergency department with a history of abdominal pain that began yesterday and has been coming and going since onset. She reports that the pain began on the left lower quadrant of the abdomen and but it seems to be spreading throughout the lower pelvis since onset. Diverticular disease with pneumoperitoneum Leukocytosis - Pts labs at admission with noted WBC 26.1, LA 2.7 Chest X-Ray 06/25/18 1. No acute cardiopulmonary process. 2. Chronic deformity of the right humeral head with associated degenerative changes. Abdomen/Pelvis CT 06/25/18 1. Diverticular disease of the descending and sigmoid portions of the colon , most severe in the region of the sigmoid with an associated diverticulitis at the junction of the descending and sigmoid. 2. Small amount of pneumoperitoneum in the upper abdomen may be related to the aforementioned diverticulitis. 3. Atrophic changes in the left kidney probably related to chronic vascular compromise. 2 to 3 mm nonobstructing stone is seen in the lower pole collecting system of the same kidney. 4. Small umbilical and right anterior abdominal hernias only containing fat. There is some stranding of the fat within both hernias which could represent some fatty infarction, - Pt was seen by General Surgery and underwent lap drainage peridiverticular abscess, pt with SPENSER drain in place. - continue zosyn - Zofran as needed for N/V - Ultram and Tylenol as needed for pain, pt refusing anything more than that - Pt is refusing stool softeners or laxatives as well. Anemia - Pt reports that she has been having issues with anemia for some time but more recently her H/H had been trending down - She states that she has an appt with Dr. Pike on Monday for evaluation of the anemia - Her outpt labs were reviewed and labs in noted Hgb 14 (07/2017) --> Hgb 10 (2017 and in 01/2018) --> Hgb 8.7 (04/2018) - Her current labs note Hgb 8.0. At admission her Hgb was 11 but she may have been more concentrated/dehydrated at that time. CKD, stage 3 - On admission BUN 32, creatinine 1.09, estimated GFR 50. - Review of outpatient records patient has had chronic kidney disease stage III with BUN and averaging in the low 30s creatinine 1.1-1.4 and estimated GFR 34-59 - monitor renal function Hypertension - Pts BP is still running high, likely pain is contributing and pt refusing much in the way of pain meds - Pt will not allow any modifications to her home regiment of meds - She reports that she has an appt with Dr. Yarbrough next week and states that she will only allow him to modify her medications - She states that she has Clonidine PRN at home as well but rarely needs to use it - Pt is on Enalapril 20 mg BID and Carvedilol 6.25 mg BID - clonidine PRN, Vasotec as needed Dilated cardiomyopathy - 2D Echocardiogram (11/2017): - Estimated ejection fraction in the range of 50- 55%. - There is trace tricuspid valve regurgitation. - The estimated pulmonary arterial pressure is 31.7 mmHg. - Continue home enalapril 20 mg BID and home carvedilol 6.25 mg BID GERD - Continue home Protonix DVT prophylaxis with SCDs Pt refusing Lovenox ADDENDUM: - I was called by nurse in the evening on 06/29 and informed that the pt had a BM and is pt is insisting on discharge this evening. - Pt had prescriptions written for Cipro 500mg BID and Flagyl 500mg TID by General Surgery x 5 more days - GS requested followup in 2 week - Pt is to follow with her PCP, Dr. Mcgovern in 1 week - She has appt with her Employee [employer] Director, Dr. Yarbrough, already scheduled and with GI, Dr. Pike as well. - Pt refuses and changes to her home regimen of BP medications. - She should have a repeat CBC next week with results to her PCP. Progress Note: Quality VTE Deep Vein Thrombosis/Pulmonary Embolism Present on Admission: No
[2018-06-29] MEDS: Pantoprazole Inj 40 MG Vial IV.PUSH SCH (09:20)
[2018-06-29] MEDS: Senna/Docusate Sodium 8.6/50 MG Tablet PO SCH ×2 (09:20→11:24)
[2018-06-29] MEDS: Carvedilol 6.25 MG Tablet PO SCH ×2 (09:20→22:16)
[2018-06-29] MEDS: buPROPion 150 MG 12 HR Tablet PO SCH ×2 (09:20→22:16)
[2018-06-29] MEDS: Enoxaparin Inj 40 MG/0.4 ML Syringe SQ SCH (09:21)
--- NOTE | 2018-06-29 09:49 | P.PNGS ---
Subjective Interval history: She is tolerating soft diet. + flatus but no bm yet. Has ambulated in her room. WBC nml. Hgb 8, fairly stable. No active bleeding. Physical Exam Vital signs: Vital Signs 06/28/18 12:00 06/28/18 16:00 06/28/18 19:37 Temperature 97.8 F 97.4 F L 98.9 F Pulse Rate 58 L 56 L 86 Respiratory Rate 19 16 17 Blood Pressure 181/84 H 199/83 H 189/81 H Pulse Oximetry 99 98 06/28/18 23:28 06/29/18 01:30 06/29/18 03:53 Temperature 97.6 F 98.4 F Pulse Rate 64 62 Respiratory Rate 18 16 17 Blood Pressure 179/79 H 177/79 H Pulse Oximetry 99 98 06/29/18 07:00 Temperature 98.1 F Pulse Rate 72 Respiratory Rate 20 Blood Pressure 194/86 H Pulse Oximetry 97 Intake & Output 06/28/18 06/29/18 06/29/18 18:59 06:59 18:59 Intake Total 1530 / 1530 100 / 100 50 / 50 Output Total 1200 / 1200 1000 / 1000 Balance 330 / 330 -900 / -900 50 / 50 Weight 91.9 kg Intake: IV 1050 / 1050 100 / 100 50 / 50 1/2 Normal Saline Inj 1,000 ML 1000 / 1000 @ 75 mls/hr IV.CONT .[id number] CAROL Rx#:[id number] Zosyn 3.375 GM Premix 3.375 gm 50 / 50 100 / 100 50 / 50 In 50 ml @ 100 mls/hr IV.SIG Q6H CAROL Rx#:[id number] Oral 480 / 480 Output: Urine 1200 / 1200 Urine Amount (Catheter) 1000 / 1000 Female External 1000 / 1000 Other: # Voids 2 Date of Last Bowel Movement 06/26/18 06/26/18 06/26/18 Narrative: NAD, comfortable in bed Abd: soft, inc c/d/i, ericka serous 40cc/24h - Urinary Catheter Management Indwelling Urethral Catheter Cath placed during this visit: yes Reason for continuing: Other continuation reason Insertion date: 06/26/18 Insertion time: 21:00 Female External Cath placed during this visit: no Results - Labs 06/29/18 06:34 02/22/19 06:04 Laboratory Results - last 24 hr 06/29/18 06/29/18 06:04 06:34 WBC 7.2 RBC 3.14 L Hgb 8.0 L Hct 24.5 L MCV 77.9 L MCH 25.6 L MCHC 32.8 RDW 18.1 H Plt Count 216 MPV 9.3 Neut % (Auto) 76.3 H Lymph % (Auto) 10.3 [facility] % (Auto) 12.2 H Eos % (Auto) 1.0 Baso % (Auto) 0.2 Neut # (Auto) 5.5 Lymph # (Auto) 0.7 L [facility] # (Auto) 0.9 Eos # (Auto) 0.1 Baso # (Auto) 0.0 WBC Differential . Differential Comment Auto diff final Sodium 137 Potassium 4.6 Chloride 106 Carbon Dioxide 21.9 Anion Gap 9 BUN 31 H Creatinine 1.11 H Estimated GFR 49 L Random Glucose 84 Calcium 8.2 L - Imaging Imaging: ITS Impressions Chest X-Ray 06/25/18 03:33 CONCLUSION: 1. No acute cardiopulmonary process. 2. Chronic deformity of the right humeral head with associated degenerative changes. Abdomen/Pelvis CT 06/25/18 03:35 CONCLUSION: 1. Diverticular disease of the descending and sigmoid portions of the colon, most severe in the region of the sigmoid with an associated diverticulitis at the junction of the descending and sigmoid. 2. Small amount of pneumoperitoneum in the upper abdomen may be related to the aforementioned diverticulitis. 3. Atrophic changes in the left kidney probably related to chronic vascular compromise. 2 to 3 mm nonobstructing stone is seen in the lower pole collecting system of the same kidney. 4. Small umbilical and right anterior abdominal hernias only containing fat. There is some stranding of the fat within both hernias which could represent some fatty infarction, however. Assessment and Plan - Assessment (1) Diverticular disease of intestine with perforation and abscess Code(s): K57.80 - Diverticulitis of intestine, part unspecified, with perforation and abscess without bleeding Status: Acute - Plan POD 3 s/p lap drainage peridiverticular abscess. Stable. No bm yet. Leighann soft diet. Hbg 8. Await bowel movt and then can have drain removed if no problems. Will discuss possible dc with Dr. Chapin. Antibiotic rx on chart. DVT proph: SCDs, lovenox.
[2018-06-29] MEDS: Ciprofloxacin 500 MG Tablet PO SCH (15:38)
[2018-06-29] MEDS: metroNIDAZOLE 500 MG Tablet PO SCH ×2 (15:38→22:18)
--- NOTE | 2018-06-29 22:37 | P.PN ---
Subjective Interval history: Called to see patient, who was supposed to be discharged this evening, basically was admitted with severe diverticulitis with abscess formation status post surgery with ERICKA tube in place which was pulled this a.m., and patient was to be held in the hospital until had a bowel movement she did well for approximately 4 hours and according to the patient went to the bathroom due to the laxative she received had severe diarrhea while on the commode severe dizziness lightheadedness nausea had to be helped back into bed and continues to have diarrhea at this time peer discussed with the nursing staff I did not feel the patient was safe for discharge home nor was the patient stable enough we placed her back in bed and will continue her current medications. I did discuss as she has had this problem it might not be a bad idea for her to go to rehab she declines that she does have help at home. In review of her labs from this morning her hemoglobin was a little low at 8 will return recheck that in the morning the rest of the labs look stable and improved. Physical Exam Vital signs: Vital Signs 06/28/18 23:28 06/29/18 01:30 06/29/18 03:53 Temperature 97.6 F 98.4 F Pulse Rate 64 62 Respiratory Rate 18 16 17 Blood Pressure 179/79 H 177/79 H Pulse Oximetry 99 98 06/29/18 07:00 06/29/18 11:37 06/29/18 12:00 Temperature 98.1 F 97.9 F 97.6 F Pulse Rate 72 61 64 Respiratory Rate 20 18 20 Blood Pressure 194/86 H 147/67 H 157/73 H Pulse Oximetry 97 99 98 06/29/18 22:19 Temperature 97.4 F L Pulse Rate 72 Respiratory Rate 18 Blood Pressure 166/72 H Pulse Oximetry 100 Intake & Output 06/29/18 06/29/18 06/30/18 06:59 18:59 06:59 Intake Total 100 / 100 650 / 650 Output Total 1000 / 1000 Balance -900 / -900 630 / 630 Weight 91.9 kg Intake: IV 100 / 100 50 / 50 Zosyn 3.375 GM Premix 3.375 gm 100 / 100 50 / 50 In 50 ml @ 100 mls/hr IV.SIG Q6H CAROL Rx#:[id number] Oral 600 / 600 Output: Urine Amount (Catheter) 1000 / 1000 Female External 1000 / 1000 Wound Drainage # 1 Left Abdomen ERICKA Drain Other: # Voids 3 Date of Last Bowel Movement 06/26/18 06/29/18 # Bowel Movements 1 Narrative: NAD, comfortable in bed Abd: soft, inc c/d/i, ericka serous 40cc/24h GENERAL: SKIN: Warm and dry. HEAD: Normocephalic. EYES: No scleral icterus. No injection or drainage. NECK: Supple, trachea midline. No JVD or lymphadenopathy. CARDIOVASCULAR: Regular rate and rhythm without murmurs, gallops, or rubs. RESPIRATORY: Breath sounds equal bilaterally. No accessory muscle use. GASTROINTESTINAL: Abdomen soft, diffuse tender, nondistended. No rebound MUSCULOSKELETAL: No cyanosis, or edema. BACK: Nontender without obvious deformity. No CVA tenderness. - Urinary Catheter Management Indwelling Urethral Catheter Cath placed during this visit: yes Reason for continuing: Other continuation reason Insertion date: 06/26/18 Insertion time: 21:00 Female External Cath placed during this visit: no Results - Labs CBC & Chem 7: 06/29/18 06:34 06/29/18 06:04 Laboratory Results - last 24 hr 06/29/18 06/29/18 06:04 06:34 WBC 7.2 RBC 3.14 L Hgb 8.0 L Hct 24.5 L MCV 77.9 L MCH 25.6 L MCHC 32.8 RDW 18.1 H Plt Count 216 MPV 9.3 Neut % (Auto) 76.3 H Lymph % (Auto) 10.3 [place] % (Auto) 12.2 H Eos % (Auto) 1.0 Baso % (Auto) 0.2 Neut # (Auto) 5.5 Lymph # (Auto) 0.7 L [place] # (Auto) 0.9 Eos # (Auto) 0.1 Baso # (Auto) 0.0 WBC Differential . Differential Comment Auto diff final Sodium 137 Potassium 4.6 Chloride 106 Carbon Dioxide 21.9 Anion Gap 9 BUN 31 H Creatinine 1.11 H Estimated GFR 49 L Random Glucose 84 Calcium 8.2 L Microbiology 06/25/18 05:55 Blood - Peripheral Aerobic Blood Culture - Preliminary No growth in 4 days 06/25/18 05:55 Blood - Peripheral Anaerobic Blood Culture - Preliminary No growth in 4 days 06/25/18 05:50 Blood - Peripheral Aerobic Blood Culture - Preliminary No growth in 4 days 06/25/18 05:50 Blood - Peripheral Anaerobic Blood Culture - Preliminary No growth in 4 days Assessment and Plan - Assessment (1) Nausea Code(s): R11.0 - Nausea Status: Acute Plan: We will continue to observe patient tonight possible discharge in a.m. recheck CBC has orders already for nausea we will continue (2) Lightheadedness Code(s): R42 - Dizziness and giddiness Status: Acute Plan: As above will monitor patient she has very poor access for IV we will see if we can encourage some p.o. fluids (3) Diverticular disease of intestine with perforation and abscess Code(s): K57.80 - Diverticulitis of intestine, part unspecified, with perforation and abscess without bleeding Status: Acute Plan: Continue current medications and hopefully can be discharged tomorrow I did suggest possible rehab patient wants to go home - Plan Hold discharge until tomorrow Code Status: Full Discussed Condition With: Patient
[2018-06-30] MEDS: Ciprofloxacin 500 MG Tablet PO SCH ×2 (02:00→13:00)
[2018-06-30] MEDS: metroNIDAZOLE 500 MG Tablet PO SCH ×3 (05:27→21:52)
[2018-06-30] MEDS: Senna/Docusate Sodium 8.6/50 MG Tablet PO SCH ×3 (05:56→21:51)
[2018-06-30] MEDS: Ketorolac Inj 30 MG/ML (IVP) Vial IV.PUSH SCH ×4 (05:56→21:53)
[2018-06-30 07:11] LABS: Eos # (Auto) 0.1 th/mm3 (0.0-0.4); Eos % (Auto) 0.2 % (0.0-4.0); Hematocrit 29.2 % (35.0-46.0); Hemoglobin 9.3 gm/dL (11.6-15.3); Lymph # (Auto) 0.8 th/mm3 (1.0-4.8); Lymph % (Auto) 3.6 % (9.0-44.0); Mean Corpuscular HGB Conc 31.9 % (32.0-36.0); Mean Corpuscular Hemoglobin 24.9 pg (27.0-34.0); Mean Corpuscular Volume 78.2 fL (80.0-100.0); Mono # (Auto) 0.9 th/mm3 (0.0-0.9); Mono % (Auto) 4.2 % (0.0-8.0); Neut # (Auto) 19.2 th/mm3 (1.8-7.7); Platelet Count 289 th/mm3 (150-450); Red Blood Count 3.73 mil/mm3 (4.00-5.30); Red Cell Distribution Width 18.2 % (11.6-17.2); White Blood Count 20.9 th/mm3 (4.0-11.0)
[2018-06-30 07:32] LABS: Calcium 8.3 mg/dL (8.5-10.1); Carbon Dioxide 21.1 meq/L (21.0-32.0); Potassium 4.3 meq/L (3.5-5.1)
[2018-06-30 07:50] LABS: Lymphocytes 7 % (9-44); Monocytes 6 % (0-8); Platelet Estimate Normal (Normal); Platelet Morphology Normal (Normal)
[2018-06-30] MEDS: Carvedilol 6.25 MG Tablet PO SCH ×2 (09:23→21:53)
[2018-06-30] MEDS: buPROPion 150 MG 12 HR Tablet PO SCH ×2 (09:24→21:52)
[2018-06-30] MEDS: Pantoprazole Inj 40 MG Vial IV.PUSH SCH (09:25)
[2018-06-30] MEDS: Enoxaparin Inj 40 MG/0.4 ML Syringe SQ SCH (09:25)
[2018-06-30] MEDS: Sod Chloride 0.9% Inj 1,000 ML IV.CONT SCH (10:00)
--- NOTE | 2018-06-30 11:00 | P.DS ---
DS: Providers Date of admission: 06/25/18 06:06 Primary care physician: Iesha Mcgovern MD Consults: 06/25/18 05:59 Consult to General Surgery Stat Consulting Provider: Mendez Plasencia For STAT consult, spoke directly to:: Dr. Plasencia by phone in ED Preferred Mexican Food Machine Tender:: Mendez Plasencia Reason for Consultation: Diverticulitis with small pneumoperitoneum Notified:: Service Spoke with:: Sherry Date Notified:: 06/25/18 Time Notified:: 06:03 Ordering Provider: KISHA Brief History from admission: Ms. Blanc is a 67 y/o female with CKD stage III, hypertension, dilated cardiomyopathy, scoliosis of lumbar spine, fibromyalgia, cervical radiculitis, spinal stenosis and GERD. Patient presents to the [facility] emergency department with a history of abdominal pain that began yesterday and has been coming and going since onset. She reports that the pain began on the left lower quadrant of the abdomen and but it seems to be spreading throughout the lower pelvis since onset. She reports that she has been trying natural remedies including milk thistle and slippery elm without improvement. She reports that she is also started a clear liquid diet, as she does have a history of diverticulitis in the past, however these measures have not been helping including taking Tylenol for the pain. She reports having nausea without any vomiting. She reports that she has had more frequent bowel movements today, 3-4, small caliber movements with some mucus. She denies having any chest pain or chest pressure, however she does report having some shortness of breath when the pain peaks. She reports that the pain is sharp in character. She reports that moving makes the pain worse. She denies having any associated urinary sent she reports a recent medical history of being diagnosed with progressive anemia and is referred to a local coat cutter for evaluation. She reports that she has an appointment scheduled soon. On review of systems otherwise, the patient denies having any known recent fevers, cough, congestion, neck pain, or neurologic symptoms. PMH: chronic kidney disease stage III hypertension dilated cardiomyopathy 2D echocardiogram 02/24/2016 revealed ejection fraction of 65% normal chamber dimensions, normal left ventricular wall thickness, normal wall motion, mild tricuspid regurgitation scoliosis of lumbar spine fibromyalgia cervical radiculitis spinal stenosis GERD PSxH: C3-4, C4-5 anterior cervical discectomy with fusion by Dr. Garcia (11/24) Appendectomy Cervical vertebral fusion Right knee C section coloscopy EGD Lumbar paravertebral facelift tubal ligation FMH: colon cancer prostate cancer HTN renal disease Social Hx: lives alone Pt uses a walker at home to assist with ambulation. She also has a wheelchair at home. denies ETOH use former cigarette smoker quit 20 plus years ago denies illicit drug use DS: Diagnosis Discharge Diagnosis (1) Nausea: Status: Acute (2) Lightheadedness: Status: Acute (3) Diverticular disease of intestine with perforation and abscess: Status: Acute DS: Summary Diverticular disease with pneumoperitoneum Leukocytosis Ms. Blanc is a 67 y/o female with CKD stage III, hypertension, dilated cardiomyopathy, scoliosis of lumbar spine, fibromyalgia, cervical radiculitis, spinal stenosis and GERD. Patient presents to the [facility] emergency department with a history of abdominal pain that began yesterday and has been coming and going since onset. She reports that the pain began on the left lower quadrant of the abdomen and but it seems to be spreading throughout the lower pelvis since onset. Pts labs at admission with noted WBC 26.1, LA 2.7 Chest X-Ray (06/25/18) noted no acute cardiopulmonary process and chronic deformity of the right humeral head with associated degenerative changes. Abdomen/Pelvis CT 06/25/18 1. Diverticular disease of the descending and sigmoid portions of the colon , most severe in the region of the sigmoid with an associated diverticulitis at the junction of the descending and sigmoid. 2. Small amount of pneumoperitoneum in the upper abdomen may be related to the aforementioned diverticulitis. 3. Atrophic changes in the left kidney probably related to chronic vascular compromise. 2 to 3 mm nonobstructing stone is seen in the lower pole collecting system of the same kidney. 4. Small umbilical and right anterior abdominal hernias only containing fat. There is some stranding of the fat within both hernias which could represent some fatty infarction, Pt was seen by General Surgery and underwent lap drainage peridiverticular abscess, pt with SPENSER drain in place. She was given Zosyn during admission and this was converted to Cipro 500mg BID and Flagyl 500mg TID on 06/29/18. She would only agree to use Ultram and Tylenol as needed for pain. Post-operatively pt was refusing stool softeners or laxatives as well. On 06/29 she did agree to taking Isabel-Colace and she then requested two doses of MOM. Pt had a BM on the evening of 06/29 and she insisted on discharge that evening. Her discharge was written and the prescriptions were written for Cipro 500mg BID and Flagyl 500mg TID by General Surgery x 5 more days. She reportedly had 6 loose stools after the laxatives and had some lightheadedness that evening so the discharge was held. Pt feels somewhat dehydrated so she will be given some IVF today and can be discharged home later this afternoon. GS requested followup in 2 week Pt is to follow with her PCP, Dr. Mcgovern in 1 week She has appt with her Real Estate Professor, Dr. Yarbrough, already scheduled and with GI, Dr. Pike as well. Pt refuses and changes to her home regimen of BP medications. She is to have a repeat CBC next week with results to her PCP. Anemia - Pt reports that she has been having issues with anemia for some time but more recently her H/H had been trending down. She states that she has an appt with Dr. Pike on Monday for evaluation of the anemia. Her outpt labs were reviewed and labs in noted Hgb 14 (07/2017) --> Hgb 10 (08/2017 and in 01/2018) -- > Hgb 8.7 (04/2018). Her current labs note Hgb 8.0. At admission her Hgb was 11 but she may have been more concentrated/dehydrated at that time. CKD, stage 3 - On admission BUN 32, creatinine 1.09, estimated GFR 50. Review of outpatient records patient has had chronic kidney disease stage III with BUN and averaging in the low 30s creatinine 1.1-1.4 and estimated GFR 34-59. Labs remained relatively stable during admission. Hypertension - Pts BP is still running high, likely pain is contributing and pt refusing much in the way of pain meds. Pt will not allow any modifications to her home regiment of meds. She reports that she has an appt with Dr. Yarbrough next week and states that she will only allow him to modify her medications. She states that she has Clonidine PRN at home as well but rarely needs to use it. Pt is on Enalapril 20 mg BID and Carvedilol 6.25 mg BID Dilated cardiomyopathy - 2D Echocardiogram (11/2017): - Estimated ejection fraction in the range of 50- 55%. - There is trace tricuspid valve regurgitation. - The estimated pulmonary arterial pressure is 31.7 mmHg. - Continue home enalapril 20 mg BID and home carvedilol 6.25 mg BID GERD - Continue home Protonix DVT prophylaxis with SCDs Pt refused Lovenox during this admission. Time Spent with Patient Total time spent providing and/or coordinating discharge services: Quality: VTE Deep Vein Thrombosis/Pulmonary Embolism Present on Admission: No Results Labs on day of discharge: Labs from last 24 hours 06/30/18 06/30/18 06:08 06:08 WBC 20.9 H D RBC 3.73 L Hgb 9.3 L Hct 29.2 L MCV 78.2 L MCH 24.9 L MCHC 31.9 L RDW 18.2 H Plt Count 289 D MPV 9.0 Prelim Diff (Auto) Slide review pending Neut % (Auto) 92.0 H Lymph % (Auto) 3.6 L Ripley % (Auto) 4.2 Eos % (Auto) 0.2 Baso % (Auto) 0.0 Neut # (Auto) 19.2 H Lymph # (Auto) 0.8 L Ripley # (Auto) 0.9 Eos # (Auto) 0.1 Baso # (Auto) 0.0 WBC Differential Manual diff final Seg Neuts % (Manual) 81 H Band Neuts % (Manual) 6 Lymphocytes % (Manual) 7 L Monocytes % (Manual) 6 Abs Neuts (Manual) 18.2 H Differential Comment . Platelet Estimate Normal Platelet Morphology Normal Sodium 135 L Potassium 4.3 Chloride 104 Carbon Dioxide 21.1 Anion Gap 10 BUN 27 H Creatinine 1.15 H Estimated GFR 47 L Random Glucose 90 Calcium 8.3 L Preliminary micro results at discharge 06/25/18 05:55 Aerobic Blood Culture - Preliminary Blood - Peripheral No growth in 4 days Anaerobic Blood Culture - Preliminary No growth in 4 days 06/25/18 05:50 Aerobic Blood Culture - Preliminary Blood - Peripheral No growth in 4 days Anaerobic Blood Culture - Preliminary No growth in 4 days Impressions ITS Impressions Chest X-Ray 06/25/18 03:33 CONCLUSION: 1. No acute cardiopulmonary process. 2. Chronic deformity of the right humeral head with associated degenerative changes. Abdomen/Pelvis CT 06/25/18 03:35 CONCLUSION: 1. Diverticular disease of the descending and sigmoid portions of the colon, most severe in the region of the sigmoid with an associated diverticulitis at the junction of the descending and sigmoid. 2. Small amount of pneumoperitoneum in the upper abdomen may be related to the aforementioned diverticulitis. 3. Atrophic changes in the left kidney probably related to chronic vascular compromise. 2 to 3 mm nonobstructing stone is seen in the lower pole collecting system of the same kidney. 4. Small umbilical and right anterior abdominal hernias only containing fat. There is some stranding of the fat within both hernias which could represent some fatty infarction, however. Discharge Plan Discharge Disposition Patient Disposition: Discharge Home Discharge Condition Condition: Stable Discharge Order Discharge Orders: Discharge Order (Routine); Ordered 06/29/18 Ordered By: Mary Lei Discharge Details Anticipated Discharge Date: 06/29/18 Discharge Comment: Discharge after pt receives IVF today Followup with Dr. Plasencia in 2 weeks, call for that appt. Followup with Dr. Mcgovern in 1 week, call for that appt. Followup with Dr. Yarbrough at previously scheduled appt. Physicians Team ED Provider: Romi Castaneda Primary Care Provider: Iesha Mcgovern Attending Provider: Og Chapin Other Providers: Mendez Plasencia Rxs /Orders / Referrals /Forms Prescriptions: New ciprofloxacin HCl 250 mg Tablet 500 mg PO Q12H Qty: 10 RF: 0 metronidazole 250 mg Tablet 500 mg PO TID Qty: 15 RF: 0 Continue carvedilol 6.25 mg Tablet 6.25 mg PO BID RF: 0 enalapril maleate 20 mg Tablet 20 mg PO BID RF: 0 folic acid 400 mcg Tablet 0.4 mg PO DAILY RF: 0 acetaminophen 500 mg Tablet 500 mg PO Q12H PRN (Reason: Pain) RF: 0 pantoprazole [Protonix] 40 mg Tablet,Delayed Release (Dr/Ec) 40 mg PO DAILY RF: 0 nitroglycerin [Nitrostat] 0.4 mg Tablet, Sublingual 0.4 mg SUBLINGUAL Q5-15M PRN (Reason: Chest Pain) RF: 0 cholecalciferol (vitamin D3) [Vitamin D3] 5,000 unit Tablet 5,000 unit PO DAILY RF: 0 bupropion HCl 300 mg Tablet Extended Release 24 Hr 300 mg PO QAM RF: 0 tramadol 50 mg Tablet 50 mg PO Q6H PRN (Reason: Pain) Qty: 12 RF: 0 Ambulatory Orders / Order Sets / DME: Complete Blood Count with Diff (Routine) Timeframe: [id number] Location: Determined by Patient Ordered By: Mary Lei Referrals: Iesha Mcgovern MD [Primary Care Provider] - See Instructions Mendez Plasencia MD [GENERAL SURGERY] - See Instructions (two weeks, call for appt ) Discharge Instructions Patient Printed Instructions: Ciprofloxacin (By mouth), Metronidazole (By mouth ), Tramadol (By mouth), Exploratory Laparoscopy (DC), Fall Prevention (DC) Additional Instructions: Follow up as directed Status ED Status: Left Department
--- NOTE | 2018-06-30 14:30 | P.PNIM ---
Subjective Interval history: Pt had some loose stools last night after taking laxatives and then had some lightheadedness so the discharge was held Pt reports that she feels dehydrated today Physical Exam Vital signs: Last Vital Signs Temp 99.1 F 06/30/18 11:55 Pulse 89 06/30/18 11:55 Resp 20 06/30/18 11:55 BP 120/58 L 06/30/18 11:55 Pulse Ox 97 06/30/18 11:55 Narrative: GENERAL: This is a well-nourished, well-developed patient, in no apparent distress. CARDIOVASCULAR: Regular rate and rhythm RESPIRATORY: Clear to auscultation. Breath sounds equal bilaterally. GASTROINTESTINAL:+BS, mildly distended, minimal tenderness MUSCULOSKELETAL: Extremities without clubbing, cyanosis, or edema. NEURO: Alert & Oriented . Moves all ext x4 Results Labs CBC & Chem 7: 06/30/18 06:08 06/30/18 06:08 Assessment and Plan Assessment (1) Nausea: Code(s): R11.0 - Nausea Status: Acute (2) Lightheadedness: Code(s): R42 - Dizziness and giddiness Status: Acute (3) Diverticular disease of intestine with perforation and abscess: Code(s): K57.80 - Diverticulitis of intestine, part unspecified, with perforation and abscess without bleeding Status: Acute Plan Ms. Blanc is a 67 y/o female with CKD stage III, hypertension, dilated cardiomyopathy, scoliosis of lumbar spine, fibromyalgia, cervical radiculitis, spinal stenosis and GERD. Patient presents to the [facility] emergency department with a history of abdominal pain that began yesterday and has been coming and going since onset. She reports that the pain began on the left lower quadrant of the abdomen and but it seems to be spreading throughout the lower pelvis since onset. Diverticular disease with pneumoperitoneum Leukocytosis - Pts labs at admission with noted WBC 26.1, LA 2.7 Chest X-Ray 06/25/18 1. No acute cardiopulmonary process. 2. Chronic deformity of the right humeral head with associated degenerative changes. Abdomen/Pelvis CT 06/25/18 1. Diverticular disease of the descending and sigmoid portions of the colon , most severe in the region of the sigmoid with an associated diverticulitis at the junction of the descending and sigmoid. 2. Small amount of pneumoperitoneum in the upper abdomen may be related to the aforementioned diverticulitis. 3. Atrophic changes in the left kidney probably related to chronic vascular compromise. 2 to 3 mm nonobstructing stone is seen in the lower pole collecting system of the same kidney. 4. Small umbilical and right anterior abdominal hernias only containing fat. There is some stranding of the fat within both hernias which could represent some fatty infarction, - Pt was seen by General Surgery and underwent lap drainage peridiverticular abscess, pt with SPENSER drain in place. - continue zosyn - Zofran as needed for N/V - Ultram and Tylenol as needed for pain, pt refusing anything more than that - Pt had been refusing laxatives, then yesterday took Pericolace and MOM x 2 and then had several loose stools. Pt was insisting on discharge yesterday evening but then she had some lightheadedness after the multiple BMs and discharge yesterday evening was held. - Pt was feeling somewhat dehydrated today so she is being given some IVF and had been planned for d/c today. - Was called by the nurse at 1430 and she reported that the pt is refusing discharge today because she is concerned about her kidney function and dehydration and wants to stay until tomorrow to get repeat labs checked - Discharge again held on 06/30 and we will repeat labs in AM Anemia - Pt reports that she has been having issues with anemia for some time but more recently her H/H had been trending down - She states that she has an appt with Dr. Pike on Monday for evaluation of the anemia - Her outpt labs were reviewed and labs in noted Hgb 14 (07/2017) --> Hgb 10 (2017 and in 01/2018) --> Hgb 8.7 (04/2018) - Her current labs note Hgb 8.0. At admission her Hgb was 11 but she may have been more concentrated/dehydrated at that time. CKD, stage 3 - On admission BUN 32, creatinine 1.09, estimated GFR 50. - Review of outpatient records patient has had chronic kidney disease stage III with BUN and averaging in the low 30s creatinine 1.1-1.4 and estimated GFR 34-59 - monitor renal function Hypertension - Pts BP is still running high, likely pain is contributing and pt refusing much in the way of pain meds - Pt will not allow any modifications to her home regiment of meds - She reports that she has an appt with Dr. Yarbrough next week and states that she will only allow him to modify her medications - She states that she has Clonidine PRN at home as well but rarely needs to use it - Pt is on Enalapril 20 mg BID and Carvedilol 6.25 mg BID - clonidine PRN, Vasotec as needed Dilated cardiomyopathy - 2D Echocardiogram (11/2017): - Estimated ejection fraction in the range of 50- 55%. - There is trace tricuspid valve regurgitation. - The estimated pulmonary arterial pressure is 31.7 mmHg. - Continue home enalapril 20 mg BID and home carvedilol 6.25 mg BID GERD - Continue home Protonix DVT prophylaxis with SCDs Pt refusing Lovenox Progress Note: Quality VTE Deep Vein Thrombosis/Pulmonary Embolism Present on Admission: No
[2018-06-30] MEDS: Acetaminophen 325 MG Tablet PO PRN ×2 (15:01→21:52)
[2018-07-01] MEDS: Ciprofloxacin 500 MG Tablet PO SCH (01:40)
[2018-07-01] MEDS: Ketorolac Inj 30 MG/ML (IVP) Vial IV.PUSH SCH ×2 (04:00→10:08)
[2018-07-01] MEDS: Sod Chloride 0.9% Inj 1,000 ML IV.CONT SCH (05:28)
[2018-07-01] MEDS: metroNIDAZOLE 500 MG Tablet PO SCH (05:36)
[2018-07-01 08:30] LABS: Baso % (Auto) 0.1 % (0.0-2.0); Eos # (Auto) 0.2 th/mm3 (0.0-0.4); Eos % (Auto) 0.9 % (0.0-4.0); Hematocrit 25.6 % (35.0-46.0); Hemoglobin 8.2 gm/dL (11.6-15.3); Lymph # (Auto) 0.7 th/mm3 (1.0-4.8); Lymph % (Auto) 3.6 % (9.0-44.0); Mean Corpuscular HGB Conc 31.8 % (32.0-36.0); Mean Corpuscular Hemoglobin 25.1 pg (27.0-34.0); Mean Corpuscular Volume 78.8 fL (80.0-100.0); Mean Platelet Volume 9.2 fL (7.0-11.0); Mono # (Auto) 0.9 th/mm3 (0.0-0.9); Mono % (Auto) 4.6 % (0.0-8.0); Neut % (Auto) 90.8 % (16.0-70.0); Platelet Count 230 th/mm3 (150-450); Red Blood Count 3.25 mil/mm3 (4.00-5.30); Red Cell Distribution Width 18.2 % (11.6-17.2); White Blood Count 18.7 th/mm3 (4.0-11.0)
[2018-07-01 08:48] LABS: Calcium 8.1 mg/dL (8.5-10.1); Carbon Dioxide 23.1 meq/L (21.0-32.0); Potassium 4.1 meq/L (3.5-5.1)
[2018-07-01] MEDS: Pantoprazole Inj 40 MG Vial IV.PUSH SCH (10:07)
[2018-07-01] MEDS: buPROPion 150 MG 12 HR Tablet PO SCH (10:07)
[2018-07-01] MEDS: Carvedilol 6.25 MG Tablet PO SCH (10:08)
[2018-07-01] MEDS: Enoxaparin Inj 40 MG/0.4 ML Syringe SQ SCH (10:15)
[2018-07-01] MEDS: Senna/Docusate Sodium 8.6/50 MG Tablet PO SCH (10:16)
[2018-07-01 10:36] VITALS: BP 179/79; PULSE 87; RESP 16; TEMP 98.2; O2SAT 97
--- NOTE | 2018-07-01 12:40 | P.PNIM ---
Subjective Interval history: Pt feels she is ready for discharge today She is tolerating oral intake No further diarrhea No complaints of abd pain Physical Exam Vital signs: Last Vital Signs Temp 98.2 F 07/01/18 08:10 Pulse 87 07/01/18 08:10 Resp 16 07/01/18 08:10 BP 179/79 H 07/01/18 08:10 Pulse Ox 97 07/01/18 08:10 Narrative: GENERAL: This is a well-nourished, well-developed patient, in no apparent distress. CARDIOVASCULAR: Regular rate and rhythm RESPIRATORY: Clear to auscultation. Breath sounds equal bilaterally. GASTROINTESTINAL:+BS, mildly distended, nontender MUSCULOSKELETAL: Extremities without clubbing, cyanosis, or edema. NEURO: Alert & Oriented . Moves all ext x4 Results Labs CBC & Chem 7: 07/01/18 06:55 07/01/18 06:55 Assessment and Plan Assessment (1) Nausea: Code(s): R11.0 - Nausea Status: Acute (2) Lightheadedness: Code(s): R42 - Dizziness and giddiness Status: Acute (3) Diverticular disease of intestine with perforation and abscess: Code(s): K57.80 - Diverticulitis of intestine, part unspecified, with perforation and abscess without bleeding Status: Acute Plan Ms. Blanc is a 67 y/o female with CKD stage III, hypertension, dilated cardiomyopathy, scoliosis of lumbar spine, fibromyalgia, cervical radiculitis, spinal stenosis and GERD. Patient presents to the [facility] emergency department with a history of abdominal pain that began yesterday and has been coming and going since onset. She reports that the pain began on the left lower quadrant of the abdomen and but it seems to be spreading throughout the lower pelvis since onset. Diverticular disease with pneumoperitoneum Leukocytosis - Pts labs at admission with noted WBC 26.1, LA 2.7 Chest X-Ray 06/25/18 1. No acute cardiopulmonary process. 2. Chronic deformity of the right humeral head with associated degenerative changes. Abdomen/Pelvis CT 06/25/18 1. Diverticular disease of the descending and sigmoid portions of the colon , most severe in the region of the sigmoid with an associated diverticulitis at the junction of the descending and sigmoid. 2. Small amount of pneumoperitoneum in the upper abdomen may be related to the aforementioned diverticulitis. 3. Atrophic changes in the left kidney probably related to chronic vascular compromise. 2 to 3 mm nonobstructing stone is seen in the lower pole collecting system of the same kidney. 4. Small umbilical and right anterior abdominal hernias only containing fat. There is some stranding of the fat within both hernias which could represent some fatty infarction, - Pt was seen by General Surgery and underwent lap drainage peridiverticular abscess, pt with SPENSER drain in place. - continue zosyn - Zofran as needed for N/V - Ultram and Tylenol as needed for pain, pt refusing anything more than that - Pt had been refusing laxatives, then yesterday took Pericolace and MOM x 2 and then had several loose stools. Pt was insisting on discharge yesterday evening but then she had some lightheadedness after the multiple BMs and discharge yesterday evening was held. - Pt was feeling somewhat dehydrated today so she is being given some IVF and had been planned for d/c today. - Was called by the nurse at 1430 on 06/30 and she reported that the pt is refusing discharge because she is concerned about her kidney function and dehydration and wanted to stay until tomorrow to get repeat labs checked - Discharge again held on 06/30 and repeat labs noted renal function is stable to improved. - Pt feels she is ready for discharge today - Discharge orders written for today. GS requested followup in 2 week Pt is to follow with her PCP, Dr. Mcgovern in 1 week She has appt with her Blower And Compressor Assembler, Dr. Yarbrough, already scheduled and with GI, Dr. Pike as well. Pt refuses and changes to her home regimen of BP medications. She is to have a repeat CBC next week with results to her PCP. Anemia - Pt reports that she has been having issues with anemia for some time but more recently her H/H had been trending down - She states that she has an appt with Dr. Pike on Monday for evaluation of the anemia - Her outpt labs were reviewed and labs in noted Hgb 14 (07/2017) --> Hgb 10 (2017 and in 01/2018) --> Hgb 8.7 (04/2018) - Her current labs note Hgb 8.0. At admission her Hgb was 11 but she may have been more concentrated/dehydrated at that time. CKD, stage 3 - On admission BUN 32, creatinine 1.09, estimated GFR 50. - Review of outpatient records patient has had chronic kidney disease stage III with BUN and averaging in the low 30s creatinine 1.1-1.4 and estimated GFR 34-59 - monitor renal function Hypertension - Pts BP is still running high, likely pain is contributing and pt refusing much in the way of pain meds - Pt will not allow any modifications to her home regiment of meds - She reports that she has an appt with Dr. Yarbrough next week and states that she will only allow him to modify her medications - She states that she has Clonidine PRN at home as well but rarely needs to use it - Pt is on Enalapril 20 mg BID and Carvedilol 6.25 mg BID - clonidine PRN, Vasotec as needed Dilated cardiomyopathy - 2D Echocardiogram (11/2017): - Estimated ejection fraction in the range of 50- 55%. - There is trace tricuspid valve regurgitation. - The estimated pulmonary arterial pressure is 31.7 mmHg. - Continue home enalapril 20 mg BID and home carvedilol 6.25 mg BID GERD - Continue home Protonix DVT prophylaxis with SCDs Pt refusing Lovenox Progress Note: Quality VTE Deep Vein Thrombosis/Pulmonary Embolism Present on Admission: No
== END 2018-07-01 13:05 | disposition home or self-care (01) | DRG 357 ==
LOC: NEPE 02:33 → NEDA 06:06 → N06 08:53
PROVIDERS: ADMIT Hospitalist; ATTEND Hospitalist
DX: K66.8 Other specified disorders of peritoneum; I12.9 Hypertensive chronic kidney disease with stage 1 through stage 4 chronic kidney disease, or unspecified chronic kidney disease; M54.12 Radiculopathy, cervical region; K21.9 Gastro-esophageal reflux disease without esophagitis; K57.20 Diverticulitis of large intestine with perforation and abscess without bleeding; D64.9 Anemia, unspecified; M41.9 Scoliosis, unspecified; Z87.891 Personal history of nicotine dependence; N18.3 Chronic kidney disease, stage 3 (moderate); E86.0 Dehydration; R11.0 Nausea; R19.7 Diarrhea, unspecified; M79.7 Fibromyalgia; Z98.1 Arthrodesis status; Z80.0 Family history of malignant neoplasm of digestive organs; D72.829 Elevated white blood cell count, unspecified; M48.00 Spinal stenosis, site unspecified; R42 Dizziness and giddiness; M48.02 Spinal stenosis, cervical region; Z91.041 Radiographic dye allergy status; I42.0 Dilated cardiomyopathy
CPT/HCPCS: 71010; 71045; 74176; 76937; 80048; 80053; 81001; 82550; 83605; 83690; 83735; 84484; 85025; 85610; 85730; 87040; 87086; 90761; 90774; 90775; 90776; 90784; 93005; 96361; 96374; 96375; 96376; 97162; 99285; C8952; C9113; J0330; J0360; J1100; J1170; J1650; J1885; J2060; J2270; J2405; J2543; J2704; J2710; J3010; J7030; J7040